=== PATIENT | female | born 1995 | race Caucasian/White ===

== ENCOUNTER → 2018-05-14 14:52 | Outpatient (CLI) | payer MEDICAID, SELFPAY ==
[2018-05-14 17:20] LABS: Chlamydia Trachomatis by PCR Negative (Negative); Neisserai gonorrhoeae by PCR Negative (Negative); Probe Check PASS; Sample Adequacy Control PASS; Specimen Processing Control PASS
[2018-05-14 17:37] LABS: Hemoglobin A1c 5.3 % (4.2-6.3)
[2018-05-14 17:38] LABS: hCG Titer Quant., Serum < 1 mIU/mL (<9 non-preg)
[2018-05-14 17:39] LABS: Follicle Stimulating Hormone 3.6 mIU/mL; Free T3 2.5 pg/mL (2.18-3.98); Luteinizing Hormone 8.5 mIU/mL; Prolactin 5.5 ng/mL; T4 Free Direct 0.86 ng/dL (0.76-1.46); Thyroid Stim Hormone (TSH) 1.07 uIU/mL (0.358-3.74)
[2018-05-18 03:06] LABS: Testosterone, % Free 3.19 % (0.50-2.80); Testosterone, Free 1.24 ng/dL (0.10-0.85); Testosterone, Total 39 ng/dL (8-48)
[2018-05-18 12:03] LABS: DHEA Sulfate 372.5 ug/dL (110.0-431.7)
[2018-05-19 17:16] LABS: HPV Reflexed? NOT INDICATED
== END ==
PROVIDERS: Visit Provider Obstetrics & Gynecology
DX: N91.1 Secondary amenorrhea (principal); Z12.4 Encounter for screening for malignant neoplasm of cervix; Z11.3 Encounter for screening for infections with a predominantly sexual mode of transmission
CPT/HCPCS: 36415; 82627; 83001; 83002; 83036; 84146; 84402; 84403; 84439; 84443; 84481; 84702; 87491; 87591; 88175; 82626; G0145

== ENCOUNTER → 2019-02-04 | Outpatient (CLI) | payer MEDICAID, SELFPAY ==
[2019-02-09 08:07] LABS: Testosterone, Free 1.17 ng/dL (0.10-0.85); Testosterone, Total 38 ng/dL (8-48)
[2019-02-09 12:18] LABS: Testosterone, % Free 3.07 % (0.50-2.80)
== END | disposition home or self-care (01) ==
LOC: WOBLAB 11:57
PROVIDERS: Visit Provider Obstetrics & Gynecology
DX: E28.2 Polycystic ovarian syndrome (principal)
CPT/HCPCS: 36415; 84402; 84403

== ENCOUNTER → 2019-05-18 14:18 | Outpatient (CLI) | payer MEDICAID, SELFPAY ==
[2017-02-06 14:59] VITALS: BMI 29.9
== END ==
PROVIDERS: Visit Provider Obstetrics & Gynecology
DX: Z12.4 Encounter for screening for malignant neoplasm of cervix (principal)

== ENCOUNTER 2019-07-16 17:10 | Inpatient (IN) | payer MEDICAID, SELFPAY ==
[2019-07-16 14:25] VITALS: BMI 29.9
--- NOTE | 2019-07-16 14:36 | PCM.HP.BLA ---
Problem List (1) Acute cholecystitis Status: Acute History and Physical Date of Admission: 07/16/19 Intake Vital Signs 07/16/19 Height 5 ft 07/16/19 Weight: 157 lb 07/16/19 BMI 30.7 07/16/19 BP 114/78 07/16/19 Blood Pressure Location Rt brachial 07/16/19 Position Sitting 07/16/19 Respiration 18 07/16/19 Pulse 64 07/16/19 Pulse Source Monitor 07/16/19 Temp 98.1 F 07/16/19 Temp Source Oral 07/16/19 Pulse Oximetry (%) 97 07/16/19 Oxygen Delivery Method room air Intake Visit Reasons: RUQ Pain Hida Scan F/U 07/13 Leo Santillan Chief Complaint: abdominal pain/nausea/vomiting/diarrhea Stop Attacher Required: No Accompanied by: Mother Is patient in pain?: Yes Pain scale (1-10): 8 Allergies guaifenesin [From Robitussin] Allergy (Intermediate, Verified 07/16/19 14:22) elevated heart rate Medications amoxicillin 875 mg-potassium clavulanate 125 mg tablet 1 tab PO Q12H 07/16/19 [History Confirmed 07/16/19] hydrocodone 5 mg-acetaminophen 325 mg tablet 1 tab PO Q4H PRN 07/16/19 [History Confirmed 07/16/19] PFSH Medical History Abdominal pain (Acute) Acute cholecystitis (Acute) Asthma (Acute) Diarrhea (Acute) Nausea & vomiting (Acute) Surgical History (Updated 07/16/19 @ 14:13 by Shira Santillan) No history of previous surgery (Acute) Family History (Updated 07/16/19 @ 14:18 by Shira Santillan) Grandmother Asthma Aunt Diabetes Uncle Diabetes Grandfather Diabetes Mother Hypertension Social History (Updated 07/16/19 @ 14:34 by Pedro Pablo Ramirez MD) Smoking Status: Current every day smoker alcohol intake: current alcohol intake frequency: a few times a month substance use type: does not use HPI HPI HPI: CHELSEY GALLEGOS, is a 23 F who presents to the office today for HPI HPI HPI: CHELSEY GALLEGOS, is a 23 F who presents to the office today for right upper quadrant pain and nausea and vomiting. She was admitted to [facility] earlier this week for acute cholecystitis and she was sent home on Augmentin. She reports since being discharged she has had nausea and vomiting and right upper quadrant pain. She is not able to take any p.o. She has also been having diarrhea. ROS General General: Yes fatigue; no weight change, appetite, colon cancer, breast cancer or weakness HEENT HEENT: No difficulty swallowing, eye injury, eye surgery, swollen glands or hoarseness Endo Endocrine: No thyroid disease, diabetes mellitus, thyroid cancer, Hair loss, heat intolerance or cold intolerance Skin Skin: No rash or changing moles Breast Breast: No left breast lump, right breast lump, nipple discharge, breast pain, abnormal mammogram, abnormal US or breast enlargement Musc Musculoskeletal: Yes back problems; no arthritis, rheumatoid arthritis, gout or joint pain Cardio Cardiovascular: No murmur, pacemaker, heart disease, atrial fibrillation, high blood pressure, heart attack, heart stent, palpitations, shortness of breat with exertion or chest pain Psych Psychiatric: No depression, anxiety or hearing voices Resp Respiratory: No shortness of breath, No sleep apnea, No cough, No COPD, Yes asthma, No emphysema, No wheezing Gastro Gastrointestinal: Yes abdominal pain, Yes nausea or vomiting, Yes diarrhea, No constipation, No blood in stool, No acid reflux, No hemorrhoids, No ulcers, Yes gallbladder problem, No black,tarry stools Ralph Hematologic: No blood thinners, No blood disorders, No bleeding, No anemia, No blood clots Neuro Neurologic: No system reviewed and no additional complaints, except as docu, No as per HPI, No abnormal walking, No abnormal hearing, No abnormal movements, No abnormal speech, No behavioral changes, No burning sensations, No confusion, No seizure-like activity, No unsteadiness, No dizziness, No localized weakness, No frequent falls, No headache(s), No lack of coordination, No loss of vision, No memory loss, No numbness, No other visual disturbances, No radiating pain, No restless legs, No sensory deficit, No fainting, No tingling, No tremor(s), No weakness, No other Exam Const General: cooperative Orientation: alert, oriented x3 HENMT Head: normal to inspection Ears: hearing grossly normal bilaterally Eyes General: appearance normal, both eyes and all related structures Visual Swenson: normal visual swenson by confrontation Neck Neck: normal visual inspection Chest Chest palpation & inspection: normal inspection of the chest Breast Palpation: No nipple discharge Resp Effort & Inspection: normal respiratory effort Auscultation: clear to auscultation bilaterally Cardio Rate: regular rate Rhythm: regular rhythm Heart Sounds: no murmurs GI Inspection: non-distended Palpation: soft, tender in the RUQ and Diaz's sign positive Musc Cervical Spine: normal cervical lordosis, cervical ROM normal Skin General: no rashes or lesions noted Neuro General: alert, oriented x3 Cranial Nerves: CN's II-XI intact bilaterally Cognition: normal cognition Extrem General: normal to inspection, full ROM Psych Appearance: grossly normal Affect: normal affect Assessment & Plan Problems 1. Acute cholecystitis K81.0 Plan 23-year-old female with acute cholecystitis 1. The patient has acute cholecystitis confirmed with abnormal ultrasound showing thickening as well as a HIDA scan showing nonfilling of the gallbladder. She was discharged home on oral antibiotics 1 over the hospital 2 days ago. In the last 2 days she has had nausea and vomiting and right upper quadrant pain with no remission. 2. I discussed the procedure in detail with the patient. I discussed the risks, benefits, and alternatives of the procedure. I discussed the risks including but not limited to bleeding, infection, injury to surrounding organs such as the liver, bile duct, bowels. I did discuss the possibility of having to convert to an open procedure as well as the possibility that if any injuries occurred this may necessitate further surgery at a tertiary care center. I also discussed that she has been sick for quite some time and there is also a possibility of performing a partial cholecystectomy or conversion to open procedure. The patient understands as well. I explained that if she had a partial cholecystectomy she would require an ERCP the following day for stent placement. She understands. 3. I will take her emergently for laparoscopic cholecystectomy today. I am sending her down to surgery now. Pedro Pablo Ramirez MD Pager: [facility] [address] [place] [address], [address] [place] [address] Office:
[2019-07-16 15:14] LABS: Hematocrit 44.6 % (37-47); Mean Corp Hgb Conc 33.6 g/dL (32-36); Mean Corpuscular Hgb 28.6 pg (27.0-32.0); Mean Platelet Vol. 10.5 fl (6.2-12.0); Platelet Count 295 K/mm3 (150-450); RBC Distribution Width CV 12.5 % (11.6-14.6); RBC Distribution Width SD 38.5 fl (35.1-43.9); Red Blood Count 5.25 M/mm3 (4.2-5.4); White Blood Count 6.6 K/mm3 (4.4-11.0)
[2019-07-16 15:18] LABS: Internal QC Validated? YES +Cl - CLEAR BKGD; Pregnancy, Urine Negative Negative
[2019-07-16 15:29] VITALS: BP 115/70; PULSE 82; RESP 16; TEMP 36.1; O2SAT 99; BMI 29.2
[2019-07-16] MEDS: Lactated Ringers 1,000 ML 100 ML IV (15:45)
[2019-07-16 15:51] LABS: AST(SGOT) 1007 U/L (15-37); Alanine Aminotransfer ALT/SGPT 1075 U/L (13-56); Albumin, Serum 3.8 g/dL (3.2-5.0); Alkaline Phosphatase 196 U/L (45-117); Anion Gap 5 (5-15); BUN 15 mg/dL (7-18); BUN/Creat Ratio 17.5 RATIO (10-20); Calcium,Total 9.3 mg/dL (8.5-10.1); Chloride 110 mmol/L (98-107); Creatinine, Serum 0.86 mg/dL (0.55-1.02); EST Glomerular Filtration Rate 87 mL/min (>60); Est Glom Filt Rate - Afr Amer 105 mL/min (>60); Estimated Creatinine Clearance 73.08 ml/min; Globulin 3.8 g/dL (2.2-4.2); Glucose 89 mg/dL (74-106); Potassium 3.9 mmol/L (3.5-5.1); Protein, Total 7.6 g/dL (6.4-8.2); Sodium Level 139 mmol/L (136-145)
--- NOTE | 2019-07-16 17:12 | MRI_ITS ---
STUDY: MR CHOLANGIOPANCREATOGRAPHY (MRCP) REASON FOR EXAM: Female, 23 years old. Right upper quadrant pain. Pain x 3 weeks TECHNIQUE: Standard MRCP technique was utilized. COMPARISON: None. FINDINGS: Heart size is normal. No pleural effusion. The liver, spleen, pancreas, adrenal glands, and kidneys are unremarkable. The aorta is normal in caliber. Multiple small dependent stones in the gallbladder. There is mild wall thickening. Normal cystic duct. Common duct is normal in caliber measuring 3 mm. There is a single 3 mm filling defect in the distal common duct consistent with stone. MRI/MRCP Abdomen without Contrast IMPRESSION: 1. Choledocholithiasis. 2. Cholelithiasis with mild wall thickening, suspicious for acute cholecystitis. Electronically Signed: Marjorie Jhaveri MD at 20:02 EST Tel , Service support ,
--- NOTE | 2019-07-16 17:55 | PCM.PN.BLA ---
Progress Note I ordered labs for the patient surgery. The laboratory evidence does not coincide with acute cholecystitis. The patient has a normal white count and her AST and ALT are markedly elevated over 1000. At this point I am concerned more for hepatitis. I canceled surgery and discussed this with the patient. I will admit her to the floor and start her on IV fluids and check a hepatitis and mono panel. I will also recheck CBC and CMP in the morning and get an MRCP. If the MRCP shows no stones in the duct or ductal dilation I will wait for the hepatitis panel. It is possible that the gallbladder was inflamed and thickened and nonfilling on the HIDA due to the hepatitis. Pedro Pablo Ramirez MD Pager: [facility] [address] [place] [address], [address] [place] [address] Office: STROKE Vital Signs/Narrative: Vital Signs Temp Pulse Resp BP Pulse Ox 07/16/19 15:29 97.0 F L 82 16 115/70 99
[2019-07-16 18:04] VITALS: BMI 29.2
[2019-07-16] MEDS: 0.9% Normal Saline 1,000 ML 999 ML IV (18:53)
[2019-07-16 18:59] VITALS: BP 105/62; PULSE 52; RESP 16; TEMP 36.9; O2SAT 99
[2019-07-16 19:08] LABS: Internal QC Validated? YES +Cl - CLEAR BKGD; Monotest Negative (Negative)
[2019-07-16] MEDS: 0.9% Normal Saline 1,000 ML 125 ML IV (19:56)
[2019-07-16 19:58] VITALS: BP 96/60; PULSE 61; RESP 14; TEMP 36.3; O2SAT 100
[2019-07-16] MEDS: Ondansetron 4 MG/2 ML Vial IV (21:20)
[2019-07-16] MEDS: Morphine 2 MG/ML Syringe IV (21:20)
[2019-07-17] VITALS (11 sets, daily range): BP systolic 92–123; BP diastolic 54–81; PULSE 58–97; RESP 14–18; TEMP 36.2–37; O2SAT 93–100; BMI 28.3
[2019-07-17] MEDS: 0.9% Normal Saline 1,000 ML 125 ML IV ×2 (03:56→12:48)
[2019-07-17 05:53] LABS: Absolute Lymphocyte Count 2.74 X10^3/uL (0.83-4.51); Absolute Neutrophil Count 4.6 X10^3/uL (2.0-7.7); Basophil# 0.07 X10^3/uL; Basophil% 0.8 % (0-1); Eosinophil# 0.15 X10^3/uL; Eosinophils% 1.8 % (0-5); Hematocrit 40.1 % (37-47); Lymphocyte # 2.74 X10^3/ul (4.0); Lymphocyte % 33.2 % (19-41); Mean Corp Hgb Conc 32.4 g/dL (32-36); Mean Corpuscular Hgb 27.8 pg (27.0-32.0); Mean Corpuscular Volume 85.7 fL (81-99); Mean Platelet Vol. 10.5 fl (6.2-12.0); Monocyte# 0.63 X10^3/uL; Monocyte% 7.6 % (0-10); NRBC Flagged by Analyzer 0 % (0-5); Neutrophil # 4.64 X10^3/uL (2.7-7.7); Neutrophil % 56.4 % (47-70); Platelet Count 254 K/mm3 (150-450); RBC Distribution Width CV 12.7 % (11.6-14.6); RBC Distribution Width SD 39.8 fl (35.1-43.9); Red Blood Count 4.68 M/mm3 (4.2-5.4); White Blood Count 8.3 K/mm3 (4.4-11.0)
[2019-07-17 06:21] LABS: ALB/GLOB Ratio 0.9 RATIO (0.9-2.4); AST(SGOT) 404 U/L (15-37); Alanine Aminotransfer ALT/SGPT 753 U/L (13-56); Albumin, Serum 2.8 g/dL (3.2-5.0); Alkaline Phosphatase 151 U/L (45-117); Anion Gap 5 (5-15); BUN 8 mg/dL (7-18); BUN/Creat Ratio 13.2 RATIO (10-20); Calcium,Total 7.8 mg/dL (8.5-10.1); Chloride 112 mmol/L (98-107); Creatinine, Serum 0.61 mg/dL (0.55-1.02); EST Glomerular Filtration Rate 129 mL/min (>60); Est Glom Filt Rate - Afr Amer 156 mL/min (>60); Estimated Creatinine Clearance 103.03 ml/min; Globulin 3.1 g/dL (2.2-4.2); Glucose 75 mg/dL (74-106); Phosphorus 2.6 mg/dL (2.5-4.9); Potassium 3.7 mmol/L (3.5-5.1); Protein, Total 5.9 g/dL (6.4-8.2); Sodium Level 140 mmol/L (136-145)
--- NOTE | 2019-07-17 07:13 | PN.SURG_ITS ---
Subjective: No nausea or vomiting overnight. Still complains of right upper quadrant pain. - Physical Exam Vitals/I&O's: Vital Signs Temp Pulse Resp BP Pulse Ox 98.6 F 64 14 99/56 L 100 07/17/19 02:15 07/17/19 02:15 07/17/19 02:15 07/17/19 02:15 07/17/19 02:15 Oxygen Delivery Method Room Air Weight: 150 lb Body Mass Index (BMI) 29.2 Intake and Output for Last 24 Hours 07/15/19 07/16/19 07/17/19 23:59 23:59 23:59 Intake Total 1405 / 1435 1030 / 1030 Balance 1405 / 1435 1030 / 1030 General: Alert, Oriented x3 Lungs: Normal air movement Cardiovascular: Regular rate, Regular Rhythm Abdomen: Soft, Non-Distended, Tender - Tender in the right upper quadrant Neurological: Cranial nerves II-XII grossly intact Psych/Mental Status: Normal Affect Laboratory Results 07/16/19 14:00: Urine Test Negative 07/16/19 15:07: Sodium 139, Potassium 3.9, Chloride 110 H, Carbon Dioxide 24.0, Anion Gap 5, BUN 15, Creatinine 0.86, Estim Creat Clear Calc 73.08, Est GFR (MDRD) Af Amer 105, Est GFR (MDRD) Non-Af 87, BUN/Creatinine Ratio 17.5, Glucose 89, Calcium 9.3, Total Bilirubin 1.40 H, AST 1007 H, ALT 1075 H, Alkaline Phosphatase 196 H, Total Protein 7.6, Albumin 3.8, Globulin 3.8, Albumin/Globulin Ratio 1.0 07/16/19 15:07: WBC 6.6, RBC 5.25, Hgb 15.0, Hct 44.6, MCV 85.0, MCH 28.6, MCHC 33.6, RDW Std Deviation 38.5, RDW Coeff of Alber 12.5, Plt Count 295, MPV 10.5 07/16/19 15:07: Monoscreen Negative 07/17/19 05:22: Hepatitis A IgM Ab Pending, Hep Bs Antigen Pending, Hep B Core IgM Ab Pending, Hepatitis C Ab (EIA) Pending 07/17/19 05:22: WBC 8.3, RBC 4.68, Hgb 13.0, Hct 40.1, MCV 85.7, MCH 27.8, MCHC 32.4, RDW Std Deviation 39.8, RDW Coeff of Alber 12.7, Plt Count 254, MPV 10.5, Immature Gran % (Auto) 0.200, Neut % (Auto) 56.4, Lymph % (Auto) 33.2, [place] % (Auto) 7.6, Eos % (Auto) 1.8, Baso % (Auto) 0.8, Absolute Neuts (auto) 4.6, Absolute Lymphs (auto) 2.74, Nucleated RBC % 0 07/17/19 05:22: Sodium 140, Potassium 3.7, Chloride 112 H, Carbon Dioxide 23.0, Anion Gap 5, BUN 8, Creatinine 0.61, Estim Creat Clear Calc 103.03, Est GFR (MDRD) Af Amer 156, Est GFR (MDRD) Non-Af 129, BUN/Creatinine Ratio 13.2, Glucose 75, Calcium 7.8 L, Phosphorus 2.6, Magnesium 2.0, Total Bilirubin 1.80 H , AST 404 H, ALT 753 H, Alkaline Phosphatase 151 H, Total Protein 5.9 L, Albumin 2.8 L, Globulin 3.1, Albumin/Globulin Ratio 0.9 Clinical Impression(s) from Imaging Studies MRCP 07/16/19 17:12 IMPRESSION: 1. Choledocholithiasis. 2. Cholelithiasis with mild wall thickening, suspicious for acute cholecystitis. Electronically Signed: Marjorie Jhaveri MD at 20:02 EST Tel , Service support , Current Medications Sodium Chloride () 1,000 mls @ 125 mls/hr IV .Q8H DAMARIS Last Admin: 07/17/19 03:56 Dose: 125 mls/hr Documented by: Sodium Chloride () 250 mls @ 15 mls/hr IV .[id number] PRN PRN Reason: Saline Flush Cefotetan Disodium 2 gm/ (Sodium Chloride) 100 mls @ 200 mls/hr IV SEND TO OR W/PATIENT ONE Stop: 07/17/19 07:38 Ibuprofen (Motrin) 600 mg PO Q6H PRN PRN PRN Reason: Pain Score 1-10/10 Morphine Sulfate () 2 - 4 mg IV Q2H PRN PRN PRN Reason: Pain Score 6-10/10 Last Admin: 07/16/19 21:20 Dose: 2 mg Documented by: Ondansetron HCl (Zofran) 4 mg IV Q6H PRN PRN PRN Reason: NAUSEA Last Admin: 07/16/19 21:20 Dose: 4 mg Documented by: Pantoprazole Sodium (Protonix) 40 mg PO DAILY DAMARIS Sodium Chloride () 10 - 40 ml IV UD PRN PRN Reason: SALINE FLUSH Medical Necessity - Tobacco Use Smoking Status: Current every day smoker Tobacco Use: Cigarettes Assessment/Plan All Active Problems (Last Reviewed 07/16/19 @ 14:13 by Shira Santillan) Acute cholecystitis (Acute) 23-year-old female with choledocholithiasis and acute cholecystitis 1. Patient was admitted and hepatitis panel was collected. She had an MRCP overnight which showed normal common bile duct diameter but there was a 3 mm filling defect in the distal common bile duct as well as cholelithiasis. Hepatitis and all still pending. Her white count is still normal today despite no antibiotics. Given the fact that she does have cholelithiasis and possible choledocholithiasis I do recommend laparoscopic cholecystectomy although hepatitis is still on the differential. Her LFTs have slightly decreased today. I will plan on laparoscopic cholecystectomy with possible common duct exploration. 2. I discussed the procedure in detail with the patient. I discussed the risks, benefits, and alternatives of the procedure. I discussed the risks including but not limited to bleeding, infection, injury to surrounding organs such as the liver, bile duct, bowels. I did discuss the possibility of having to convert to an open procedure as well as the possibility that if any injuries occurred this may necessitate further surgery at a tertiary care center. Pedro Pablo Ramirez MD Pager: [facility] [address] [place] [address], [address] [place] [address] Office:
[2019-07-17] MEDS: 0.9% Saline Lock 10 ML Syringe IV ×2 (08:37→16:40)
[2019-07-17] MEDS: Lactated Ringers 1,000 ML 100 ML IV (10:00)
--- NOTE | 2019-07-17 10:28 | RAD_ITS ---
STUDY: INTRAOPERATIVE CHOLANGIOGRAM REASON FOR EXAM: Female, 23 years old. ABD PAIN RADIATION DOSAGE (If Supplied By Facility): CTDIvol = ( ) mGy, DLP = ( ) mGycm. Individualized dose optimization techniques were used for this CT.? FLUOROSCOPY TIME (if supplied): ( 4 minutes, 31 seconds ) TECHNIQUE: 1 intraoperative film, and 2 cine loops obtained. COMPARISON: None. FINDINGS: After the gallbladder was removed, and the cystic duct remnant was cannulized, and contrast injected into the biliary tree in a retrograde manner. The biliary tree fills normally without evidence of abnormal distention or filling defect. There is free flow of contrast into the duodenum. RAD/Cholangiogram/ O R,Initial IMPRESSION: Normal intraoperative cholangiogram Electronically Signed: Ze Grace MD at 15:03 EST , Service support ,
--- NOTE | 2019-07-17 11:05 | CASEMGMT ---
RN CM attempted to complete CM assessment at this time. Patient is currently at surgery. CM to attempt again at later time.
[2019-07-17] MEDS: Bupiv/Epi 0.25% 30 ML Vial (11:16)
--- NOTE | 2019-07-17 11:20 | GALL_PTH ---
PATIENT: CHELSEY GALLEGOS LOC: MS3 U#:[id number] AGE/SX: 23/ ROOM: MS313 RE07/16/[address]: Dr. Pedro Pablo Ramirez MD : 1995 BED: 1 DIS: 07/18/2019 SPEC #: [id number] RECD: 07/17/19 14:19 STATUS: IVONNE PONCE #: [id number] MY: 07/17/19 11:[address]: Pedro Pablo Ramirez DEPT: SURGICAL PATHOLOGY RECD BY: Frandy Arthur ENTERED: 07/17/19 15:02 SP TYPE: FRANCHESCA OCONNOR DR: Dr. Renata Camejo MD Tissues: Gallbladder, NOS Procedures: Surgery Specimen Level III HEADER OPERATION: Laparoscopic cholecystectomy with IOC PRE-OP DIAGNOSIS: Acute cholecystitis TISSUE SUBMITTED: Gallbladder MICROSCOPIC DIAGNOSIS Gallbladder, cholecystectomy: Acute and chronic ulcerated cholecystitis and cholelithiasis. Reactive epithelial changes. :erum 07/20/19 MICROSCOPIC DESCRIPTION Slides are reviewed. GROSS DESCRIPTION Received is one container labeled with the patient's name and designated gallbladder. The specimen consists of a gallbladder measuring 8.5 x 3 x 2 cm. The external surface is smooth and glistening. Focally, it is granular, hemorrhagic and contains cautery artifact. The lumen of the gallbladder contains greenish-yellow mucoid bile and multiple mulberry, chalky yellow calculi ranging in size from <0.1 to 0.6 cm in greatest dimension. The mucosa is bile-stained and without any mass lesions. The gallbladder wall averages 0.2 cm in thickness and is free of mass lesions. Clinical Education Consultant sections of the gallbladder and the cystic duct at margin of resection are submitted in one cassette. / AM:erum 07/17/19 TC:2 CPT: 18285
--- NOTE | 2019-07-17 12:59 | OP.PCM_ITS ---
Problem List (1) Acute cholecystitis Status: Acute Report of Operation Date of Procedure: 07/17/19 Pre-Operative Diagnosis: Acute cholecystitis and choledocholithiasis Post-Operative Diagnosis: Same Surgery/Procedure Performed:: Laparoscopic cholecystectomy with laparoscopic common duct exploration Description of Surgical Findings:: Choledocholithiasis Specimen's removed: Gallbladder and contents Drains: JENNYFER to bulb suction Description of Procedure: After obtaining informed consent patient was brought back to the operating room. General anesthesia was induced. The abdomen was prepped and draped in usual sterile fashion. A small midline incision was made superior to the umbilicus and deepened to the level of fascia. The fascia was elevated and incised. Next the peritoneum was elevated and incised in the same fashion. Finger sweep was performed and the Locke trocar was placed into the abdomen. The balloon was inflated. The abdomen was inflated to 15 mmHg. Next a camera was introduced into the abdomen and the abdomen was inspected. Next under direct visualization three 5-mm ports were placed one subxiphoid and 2 subcostal. Next the gallbladder was elevated and retracted toward the right shoulder. The peritoneum was stripped from the gallbladder. The infundibulum was located and retracted laterally. Next the triangle of Calot was dissected and the cystic duct and cystic artery were identified. Cholangiograms were performed. The Tom clamp was used to clamp across the infundibulum and the catheter needle was inserted into the gallbladder. Under fluoroscopy contrast was instilled into the gallbladder and the common duct, cystic duct as well as proximal hepatic ducts were identified. There was a filling defect in the distal common bile duct with no filling of the duodenum. Next a clip was placed in the proximal cystic duct. A introducer was placed in the anterior abdominal wall and through this introducer catheter was placed in the cystic duct and a guidewire was placed into the common bile duct. During the placement of the wire into the cystic duct it appeared to reappear posterior to the cystic duct. It was unsure if the patient had perforation of the posterior cystic duct. Once the guidewire was into the small bowel a catheter was placed over this and a cholangiogram was performed. Next the catheter was removed and over the guidewire a 7 Bermudian stent was placed into the common bile duct and into the small bowel. Once it was in good position it was deployed. There was good flow of contrast into the duodenum. The guidewire was removed and the catheter was placed back into the common bile duct and another cholangiograms performed showing that the stent was in good position and there was good flow of contrast of the duodenum. There did not appear to be a leak from the cystic duct. The guidewire and catheter was removed from the cystic duct. 2 clips were placed in the distal cystic duct. The cystic duct was then divided leaving 2 clips on the stump. The cystic artery was clipped and divided in the same fashion. The hook cautery was then used to take the gallbladder off of the gallbladder bed. Hemostasis was obtained. Gallbladder fossa was irrigated and no active bleeding or bile leakage was noted. Next the camera switched to a 5 mm camera and introduced in the subxiphoid port. An Endopouch bag was placed through the umbilical port and the gallbladder was placed into it. The gallbladder was then removed through the umbilical incision. The camera was then reinserted through the umbilical port. The gallbladder fossa was inspected once more and noted to be hemostatic with no leaking bile. A 15 Bermudian round drain was placed through the lateral position and placed into the gallbladder fossa. The port was removed and the drain was sutured into place using a 3-0 nylon suture. Drain was placed to bulb suction. The abdomen was suctioned dry. The 5 mm ports were removed under direct visualization. The umbilical port was then removed and the air was removed from the abdomen. Next using an 0 Vicryl suture the umbilical fascia was closed in a [id number] fashion. The umbilical port site was irrigated local anesthetic was administered to all the incisions. All the incisions were closed with interrupted subcuticular 4-0 Monocryl sutures followed by Steri-Strips and dressings. The patient was awoken and taken to PACU in stable condition. Grafts/Implants Used: 7 Bermudian Dea stent - Admit VTE Documentation VTE Mechan Device Prophylaxis: SCD's
[2019-07-17] MEDS: oxyCODONE 5 MG Tablet PO ×2 (14:20→20:48)
[2019-07-17] MEDS: Pantoprazole Sodium 40 MG Tablet PO (14:20)
[2019-07-17] MEDS: Ondansetron 4 MG/2 ML Vial IV (16:39)
[2019-07-17] MEDS: Morphine 2 MG/ML Syringe IV (16:40)
[2019-07-17] MEDS: Ibuprofen 600 MG Tablet PO (18:37)
[2019-07-18 01:53] VITALS: BP 98/62; PULSE 60; RESP 16; TEMP 36.8; O2SAT 98
[2019-07-18] MEDS: 0.9% Normal Saline 1,000 ML 125 ML IV (01:56)
[2019-07-18] MEDS: oxyCODONE 5 MG Tablet PO ×2 (03:09→10:53)
[2019-07-18 05:50] VITALS: BP 110/69; PULSE 59; RESP 16; TEMP 36.6; O2SAT 97
[2019-07-18 06:07] LABS: HEPATITIS B SURFACE AG Negative (Negative); Hepatitis A IgM Antibody Negative (Negative); Hepatitis B Core AB IgM Negative (Negative)
--- NOTE | 2019-07-18 08:03 | PN.SURG_ITS ---
Subjective: Patient is doing well and tolerating clear liquids with no issues overnight. Pain is well controlled with meds. - Physical Exam Vitals/I&O's: Vital Signs Temp Pulse Resp BP Pulse Ox 98 F 59 L 16 110/69 97 07/18/19 05:50 07/18/19 05:50 07/18/19 05:50 07/18/19 05:50 07/18/19 05:50 Oxygen Delivery Method Room Air Weight: 150 lb 2.157 oz Body Mass Index (BMI) 28.3 Intake and Output for Last 24 Hours 07/16/19 07/17/19 07/18/19 23:59 23:59 23:59 Intake Total 1405 / 1435 4175 / 4515 590 / 590 Output Total 655 / 855 520 / 520 Balance 1405 / 1435 3520 / 3660 70 / 70 General: Alert, Oriented x3 Neck: No JVD Lungs: Normal air movement Cardiovascular: Regular rate, Regular Rhythm Abdomen: Soft, Non-Distended, Tender - Appropriate tenderness at incisions, - - JENNYFER serosanguineous Laboratory Results 07/18/19 06:47: WBC Pending, RBC Pending, Hgb Pending, Hct Pending, MCV Pending, MCH Pending, MCHC Pending, RDW Std Deviation Pending, RDW Coeff of Alber Pending, Plt Count Pending, Neut % (Auto) Pending, Absolute Neuts (auto) Pending 07/18/19 06:47: Sodium Pending, Potassium Pending, Chloride Pending, Carbon Dioxide Pending, Anion Gap Pending, BUN Pending, Creatinine Pending, Est GFR (MDRD) Af Amer Pending, Est GFR (MDRD) Non-Af Pending, BUN/Creatinine Ratio Pending, Glucose Pending, Calcium Pending, Total Bilirubin Pending, AST Pending, ALT Pending, Alkaline Phosphatase Pending, Total Protein Pending, Albumin Pending Current Medications Acetaminophen (Tylenol) 650 mg PO Q6H PRN PRN PRN Reason: Pain or Fever Sodium Chloride () 250 mls @ 15 mls/hr IV .[id number] PRN PRN Reason: Saline Flush Ibuprofen (Motrin) 600 mg PO Q6H PRN PRN PRN Reason: Pain Score 1-10/10 Last Admin: 07/17/19 18:37 Dose: 600 mg Documented by: Morphine Sulfate () 2 - 4 mg IV Q2H PRN PRN PRN Reason: Pain Score 6-10/10 Last Admin: 07/17/19 16:40 Dose: 4 mg Documented by: Ondansetron HCl (Zofran) 4 mg IV Q6H PRN PRN PRN Reason: NAUSEA Last Admin: 07/17/19 16:39 Dose: 4 mg Documented by: Oxycodone HCl (Oxyir) 5 - 10 mg PO Q6H PRN PRN PRN Reason: Pain Score 6-10/10 Last Admin: 07/18/19 03:09 Dose: 10 mg Documented by: Pantoprazole Sodium (Protonix) 40 mg PO DAILY DAMARIS Last Admin: 07/17/19 14:20 Dose: 40 mg Documented by: Sodium Chloride () 10 - 40 ml IV UD PRN PRN Reason: SALINE FLUSH Last Admin: 07/17/19 16:40 Dose: 10 ml Documented by: Medical Necessity - Tobacco Use Smoking Status: Current every day smoker Tobacco Use: Cigarettes Assessment/Plan All Active Problems (Last Reviewed 07/16/19 @ 14:13 by Shira Santillan) Acute cholecystitis (Acute) 23-year-old female status post laparoscopic cholecystectomy with common bile duct exploration 1. Patient reports she is doing well this morning. She is tolerating clear liquid diet with no nausea or vomiting. I will advance her to regular diet. Her drain is still serosanguineous and I will remove it this afternoon. 2. If she tolerates diet I will discharge her home. Plan for ERCP in about 4 weeks to remove the stent and check for leak. Pedro Pablo aRmirez MD Pager: [facility] [address] [place] [address], [address] [place] [address] Office:
[2019-07-18 08:05] LABS: Absolute Lymphocyte Count 2.51 X10^3/uL (0.83-4.51); Absolute Neutrophil Count 5.3 X10^3/uL (2.0-7.7); Basophil# 0.04 X10^3/uL; Basophil% 0.5 % (0-1); Eosinophil# 0.05 X10^3/uL; Eosinophils% 0.6 % (0-5); Hematocrit 38.6 % (37-47); Hemoglobin 12.5 g/dL (12.0-15.0); Lymphocyte # 2.51 X10^3/ul (4.0); Lymphocyte % 28.9 % (19-41); Mean Corp Hgb Conc 32.4 g/dL (32-36); Mean Corpuscular Hgb 28.3 pg (27.0-32.0); Mean Corpuscular Volume 87.3 fL (81-99); Monocyte# 0.78 X10^3/uL; NRBC Flagged by Analyzer 0 % (0-5); Neutrophil # 5.27 X10^3/uL (2.7-7.7); Neutrophil % 60.5 % (47-70); Platelet Count 251 K/mm3 (150-450); RBC Distribution Width CV 12.9 % (11.6-14.6); RBC Distribution Width SD 41.1 fl (35.1-43.9); Red Blood Count 4.42 M/mm3 (4.2-5.4); White Blood Count 8.7 K/mm3 (4.4-11.0)
[2019-07-18] MEDS: Pantoprazole Sodium 40 MG Tablet PO (08:14)
[2019-07-18] MEDS: Ibuprofen 600 MG Tablet PO (08:17)
[2019-07-18 08:26] LABS: ALB/GLOB Ratio 0.9 RATIO (0.9-2.4); AST(SGOT) 365 U/L (15-37); Alanine Aminotransfer ALT/SGPT 771 U/L (13-56); Albumin, Serum 2.9 g/dL (3.2-5.0); Alkaline Phosphatase 182 U/L (45-117); Anion Gap 6 (5-15); BUN 7 mg/dL (7-18); BUN/Creat Ratio 10.2 RATIO (10-20); Calcium,Total 8.9 mg/dL (8.5-10.1); Chloride 112 mmol/L (98-107); Creatinine, Serum 0.69 mg/dL (0.55-1.02); EST Glomerular Filtration Rate 112 mL/min (>60); Est Glom Filt Rate - Afr Amer 135 mL/min (>60); Estimated Creatinine Clearance 95.69 ml/min; Globulin 3.2 g/dL (2.2-4.2); Glucose 76 mg/dL (74-106); Potassium 3.8 mmol/L (3.5-5.1); Protein, Total 6.1 g/dL (6.4-8.2); Sodium Level 140 mmol/L (136-145)
--- NOTE | 2019-07-18 10:42 | PCM.DC.GB ---
Discharge Diet: Light diet - advance as tolerated Discharge Activity: Return to Normal Activity, May Not Drive - for 2-3 days or while taking narcotic pain medicataions., May Shower May shower in (days): 1 - with the bandage in place. Lifting Restrictions: 20 lbs for 2 weeks Additional Activity Instructions:: Pain medication may cause nausea. You should typically eat light foods as you take your pain medications. Pain medication may also cause constipation. If this is a problem for you, please discuss with your doctor. Call your doctor if your incision/area has: Continuous Slow Oozing, Sudden Increased Bleeding, Increased Pain/ Swelling, Increased Redness, Foul Smelling Discharge, Fever of 101 or Higher Call your doctor if you observe: Fever of 101 or Higher Suture Line Care: Avoid Pulling/Pushing, Avoid Pinching/Bending Additional Dressing/Incision Instructions:: Leave operative bandaids on for 2 days. When you remove dressing, leave Steri-Strips on until your follow-up appointment, or until the Steri-Strips fall off on their own. Allergies/Adverse Reactions: Allergies guaifenesin [From Robitussin] Allergy (Intermediate, Verified 07/16/19 15:21) elevated heart rate Medications to take at Discharge amoxicillin 875 mg-potassium clavulanate 125 mg tablet 1 tab PO Q12H 07/16/19 hydrocodone 5 mg-acetaminophen 325 mg tablet 1 tab PO Q4H PRN 07/16/19 Acetaminophen [Tylenol Tablet] 650 mg PO Q6H PRN PRN tablet 07/18/19 Oxycodone [Oxyir] 5 - 10 mg PO Q6H PRN PRN 5 Days #30 tablet 07/18/19 The following prescriptions were given: Oxycodone [Oxyir] 5 - 10 mg PO Q6H PRN PRN 5 Days #30 tablet PRN Reason: Pain Score 6-10/10 Transmission Status: Received by [facility]/pharmacy #[id number] Primary Care Physician: Renata Camejo [Primary Care Provider] - Test Results: Test results from this visit will be discussed in further detail at your follow-up appointment, if applicable. Please Follow Up With: Pedro Pablo Ramirez MD When: Please call to schedule 2 week follow up appointment. [phone]
--- NOTE | 2019-07-18 10:44 | DS.PCM_ITS ---
Discharge Date and Diagnosis Date of Admission: 07/16/19 Date of Discharge: 07/18/19 Hospital Course and Treatment Imaging Results: Clinical Impression(s) from Imaging Studies MRCP 07/16/19 17:12 IMPRESSION: 1. Choledocholithiasis. 2. Cholelithiasis with mild wall thickening, suspicious for acute cholecystitis. Electronically Signed: Marjorie Jhaveri MD at 20:02 EST Tel , Service support , Cholangiogram 07/17/19 10:28 IMPRESSION: Normal intraoperative cholangiogram Electronically Signed: Ze Grace MD at 15:03 EST , Service support , Operations: cholecystecomy Procedures: None Summary of Care Provided: The patient is a 23 year old F presented to the office with right upper quadrant pain and elevated white count. She was taken for surgery the following day after MRCP showed a distal common duct filling defect. She had a laparoscopic cholecystectomy with common duct exploration and placement of stent. She will follow-up for ERCP with stent removal. She was tolerating a diet the following day and discharged home in stable condition. Her JENNYFER drain was serous with no bile and it was removed. - Physical Exam Vitals/I&O's: Vital Signs Temp Pulse Resp BP Pulse Ox 98 F 59 L 16 110/69 97 07/18/19 05:50 07/18/19 05:50 07/18/19 05:50 07/18/19 05:50 07/18/19 05:50 Oxygen Delivery Method Room Air Weight: 150 lb 2.157 oz Body Mass Index (BMI) 28.3 Intake and Output for Last 24 Hours 07/16/19 07/17/19 07/18/19 23:59 23:59 23:59 Intake Total 1405 / 1435 4175 / 4515 1473.33 / 1473.33 Output Total 655 / 855 520 / 520 Balance 1405 / 1435 3520 / 3660 953.33 / 953.33 Laboratory Results 07/18/19 06:47: WBC 8.7, RBC 4.42, Hgb 12.5, Hct 38.6, MCV 87.3, MCH 28.3, MCHC 32.4, RDW Std Deviation 41.1, RDW Coeff of Alber 12.9, Plt Count 251, MPV 11.0, Immature Gran % (Auto) 0.500, Neut % (Auto) 60.5, Lymph % (Auto) 28.9, Owen % (Auto) 9.0, Eos % (Auto) 0.6, Baso % (Auto) 0.5, Absolute Neuts (auto) 5.3, Absolute Lymphs (auto) 2.51, Nucleated RBC % 0 07/18/19 06:47: Sodium 140, Potassium 3.8, Chloride 112 H, Carbon Dioxide 22.0, Anion Gap 6, BUN 7, Creatinine 0.69, Estim Creat Clear Calc 95.69, Est GFR (MDRD) Af Amer 135, Est GFR (MDRD) Non-Af 112, BUN/Creatinine Ratio 10.2, Glucose 76, Calcium 8.9, Total Bilirubin 3.50 H, AST 365 H, ALT 771 H, Alkaline Phosphatase 182 H, Total Protein 6.1 L, Albumin 2.9 L, Globulin 3.2, Albumin/Globulin Ratio 0.9 Current Medications Acetaminophen (Tylenol) 650 mg PO Q6H PRN PRN PRN Reason: Pain or Fever Sodium Chloride () 250 mls @ 15 mls/hr IV .[id number] PRN PRN Reason: Saline Flush Ibuprofen (Motrin) 600 mg PO Q6H PRN PRN PRN Reason: Pain Score 1-10/10 Last Admin: 07/18/19 08:17 Dose: 600 mg Documented by: Morphine Sulfate () 2 - 4 mg IV Q2H PRN PRN PRN Reason: Pain Score 6-10/10 Last Admin: 07/17/19 16:40 Dose: 4 mg Documented by: Ondansetron HCl (Zofran) 4 mg IV Q6H PRN PRN PRN Reason: NAUSEA Last Admin: 07/17/19 16:39 Dose: 4 mg Documented by: Oxycodone HCl (Oxyir) 5 - 10 mg PO Q6H PRN PRN PRN Reason: Pain Score 6-10/10 Last Admin: 07/18/19 03:09 Dose: 10 mg Documented by: Pantoprazole Sodium (Protonix) 40 mg PO DAILY [facility] Last Admin: 07/18/19 08:14 Dose: 40 mg Documented by: Sodium Chloride () 10 - 40 ml IV UD PRN PRN Reason: SALINE FLUSH Last Admin: 07/17/19 16:40 Dose: 10 ml Documented by: Discharge Diet: Light diet - advance as tolerated Discharge Activity: Return to Normal Activity, May Not Drive - for 2-3 days or while taking narcotic pain medicataions., May Shower May shower in (days): 1 - with the bandage in place. Additional Activity Instructions:: Pain medication may cause nausea. You should typically eat light foods as you take your pain medications. Pain medication may also cause constipation. If this is a problem for you, please discuss with your doctor. Call your doctor if your incision/area has: Continuous Slow Oozing, Sudden Increased Bleeding, Increased Pain/ Swelling, Increased Redness, Foul Smelling Discharge, Fever of 101 or Higher Call your doctor if you observe: Fever of 101 or Higher Suture Line Care: Avoid Pulling/Pushing, Avoid Pinching/Bending Additional Dressing/Incision Instructions:: Leave operative bandaids on for 2 days. When you remove dressing, leave Steri-Strips on until your follow-up appointment, or until the Steri-Strips fall off on their own. Home Medications: Medications to take at Discharge amoxicillin 875 mg-potassium clavulanate 125 mg tablet 1 tab PO Q12H 07/16/19 hydrocodone 5 mg-acetaminophen 325 mg tablet 1 tab PO Q4H PRN 07/16/19 Acetaminophen [Tylenol Tablet] 650 mg PO Q6H PRN PRN tab 07/18/19 Oxycodone [Oxyir] 5 - 10 mg PO Q6H PRN PRN 5 Days #30 tab 07/18/19 Following Prescrptions Were Given to Patient: Oxycodone [Oxyir] 5 - 10 mg PO Q6H PRN PRN 5 Days #30 tab PRN Reason: Pain Score 6-10/10 Transmission Status: Received by [facility]/pharmacy #[id number] Primary Care Physician: Renata Camejo [Primary Care Provider] - Please Follow Up With: Pedro Pablo Ramirez MD When: Please call to schedule 2 week follow up appointment. [phone] Medical Necessity - Tobacco Use Smoking Status: Current every day smoker Tobacco Use: Cigarettes Meaningful Use Info Meaningful Use Diagnoses (Choose all that apply): None applicable
[2019-07-18 10:54] VITALS: BP 106/72; PULSE 62; RESP 16; TEMP 36.7; O2SAT 95
--- NOTE | 2019-07-18 11:44 | NURSING ---
Dr. Ramirez removed JENNYFER drain.
[2019-07-18 15:24] LABS: Hep C Antibodies <0.1 s/co ratio (0.0-0.9)
[2019-07-18 16:00] VITALS: BP 112/74; PULSE 58; RESP 16; TEMP 37.2; O2SAT 95
== END 2019-07-18 17:13 | disposition home or self-care (01) | DRG 263 ==
LOC: MS3 17:10
PROVIDERS: Admitting Provider Surgery; PCP Family Medicine; Referring Provider Surgery; Visit Provider Surgery
PROC: 0FT44ZZ Resection of Gallbladder, Percutaneous Endoscopic Approach (ICD-10-PCS; CPT 47610; principal; 2019-07-17 11:00)
DX: K80.62 Calculus of gallbladder and bile duct with acute cholecystitis without obstruction (principal); F17.210 Nicotine dependence, cigarettes, uncomplicated
CPT/HCPCS: 36415; 74181; 74300; 76000; 80053; 80074; 81025; 83735; 84100; 85025; 85027; 86308; 88304; J7030; J7120; A4216; C1769; J2405

== ENCOUNTER 2019-09-10 08:48 | Day surgery (SDC) | payer MEDICAID, SELFPAY ==
[2019-07-17 08:23] VITALS: BMI 28.3
[2019-09-10] VITALS (7 sets, daily range): BP systolic 93–116; BP diastolic 61–77; PULSE 85–99; RESP 15–18; TEMP 36.2–36.7; O2SAT 95–100; BMI 31.1
[2019-09-10] MEDS: Lactated Ringers 1,000 ML 100 ML IV (09:25)
[2019-09-10 09:28] LABS: Internal QC Validated? YES +Cl - CLEAR BKGD; Pregnancy, Urine Negative Negative
--- NOTE | 2019-09-10 09:43 | EKG12_ITS ---
Test Reason : PREOP Blood Pressure : / mmHG Vent. Rate : 081 BPM Atrial Rate : 081 BPM P-R Int : 152 ms QRS Dur : 084 ms QT Int : 372 ms P-R-T Axes : 015 039 006 degrees QTc Int : 432 ms Normal sinus rhythm Normal ECG When compared with ECG of 06-FEB-2017 15:10, QT has lengthened Confirmed by KAZ TAVERAS, VIPIN ([id number]), photography editor JAMEEL KEEN ([id number]) on 09/15/2019 7:54:37 AM Referred By: Renata Camejo Confirmed By:VIPIN MCCURDY MD
--- NOTE | 2019-09-10 09:56 | HP.PCM_ITS ---
History of Present Illness Date of Admission: 09/10/19 The patient is a 24 year old F here for ERCP with stent removal. Patient had laparoscopic cholecystectomy with common bile duct exploration and stent placement due to choledocholithiasis. Past Medical/Surgical History - Planned Operation Planned Operative Procedure/s: ERCP, STENT REMOVAL Date of Operative Procedure: 09/10/19 Permit Signed: Yes S.O.S: No Is This Patient Having a Total Joint: No - Previous Hospitalizations/Surgeries HX Hospitalizations: Yes HX of Surgeries: LAP ARIADNA 07/17/19 Any Problems With Anesthesia: No You/Your Family Experience Fever (Hyperthermia) With Anes: No Cholinesterase deficiency: No - Cardiovascular Hx Chest Pain within Last 2 months: No Hx of Irregular Heartbeat and/or Afib: No Hx Heart Attack: No Hx Congestive Heart Failure: No Hx Rheumatic Fever: No Hx Hypertension: No Hx Internal Defibrillator: No Hx Pacemaker: No Hx Cardiac Catheterization: No Hx Cardiac Surgery/Stents/Etc.: No Hx Stress Test: No HX Edema: No Hx Pain in Legs when Walking/Leg Cramps: No - Respiratory Chronic Cough: No HX of Shortness of Breath: No Hoarseness: No Hx Chronic Obstructive Pulmonary Disease (COPD): No Hx Asthma: Yes - ONLY USES WHEN SICK Hx Emphysema: No Hx Sleep Apnea: No CPAP: No BIPAP: No Hx Oxygen Use at Home: No Hx Respiratory Tract Infection/Cold (presently): No Do You Snore Loudly (louder than talking or can be heard): No Do You Often Feel Tired/ Fatigued/ Sleepy Dring Daytime?: No Has Anyone Observed You Stop Breathing During Sleep?: No Result (for STOP score): Negative Hx Smoking: Yes Smoking Status: Current every day smoker - Gastrointestinal Hx Gastroesophageal Reflux: No Hx Gastrointestinal Disorders: No Hx Gastrointestinal Bleed: No Hx Ulcer: No Hx Hiatal Hernia: No Difficulty Chewing/Swallowing: No Recent Onset of Swallowing Problems: No Special diet followed at home: No Hx Unplanned Weight Loss of 20#: No HX Unplanned Weight Gain of 20#: No - Neurological Hx Seizures: No HX Syncope/Blackout Spells/Unconsciousness: No Hx CVA/Stroke: No Hx Transient Ischemic Attacks (TIA): No Hx Multiple Sclerosis: No Hx Parkinson's Disease: No Hx Head/Neck Injury: No Hx Headaches: No Hx Back Injury/Pain: No Recent Onset of Speech Difficulty: No Restless Legs: No Does patient have nerve stimulator: No - Blood Disorder Hx Leukemia: No Bleeding Tendencies: No Hx Deep Vein Thrombosis: No Hx High Cholesterol: No Blood Transmitted Disease: No Hx Hepatitis: No Hx Cirrhosis: No Hx Anemia: No Hx Blood Disorders: No - Reproduction : No Is Patient Lactating: No Hx Hysterectomy: No Hx Tubal Ligation: No Are You Post Menopause: No - Genitourinary Hx Renal Disease: No Hx Dialysis: No - Musculoskeletal Hx Arthritis: No Hx Rheumatoid Arthritis: No Hx Gout: No Recent Onset of an Orthopedic Problem: No - Endocrine Hx Diabetes: No Insulin: No Thyroid Disease: No Hx Steroid Therapy: No - Psycho/Social Hx Substance Use: No Hx Alcohol Use: No Hx Anxiety: No Hx Depression: No Mental Illness: No Hx Dementia: No - Miscellaneous Hx Cancer: No Recent Exposure to Contagious Disease: No Active MRSA: No Hx of C-Diff: No Any Loose Teeth: No Additional information pertinent to anesthesia:: SMOKES 1/4 PPD FOR 2 YRS Allergies guaifenesin [From Robitussin] Allergy (Intermediate, Verified 09/10/19 09:06) elevated heart rate - Discharge Is Pt Admitted From a Detention, or a Mcfp: No Who Could Help: MOTHER After D/C, Where Do you Plan to Go: Return Home - Physical Exam Vitals/I&O's: Vital Signs Temp Pulse Resp BP Pulse Ox 98 F 85 15 104/77 95 09/10/19 09:16 09/10/19 09:16 09/10/19 09:16 09/10/19 09:16 09/10/19 09:16 Oxygen Delivery Method Room Air Weight: 159 lb 2.78 oz Body Mass Index (BMI) 31.1 General: Alert, Oriented x3 Neck: No JVD Lungs: Normal air movement Cardiovascular: Regular rate, Regular Rhythm Abdomen: Soft, Non Tender, Non-Distended Laboratory Results 09/10/19 09:18: Urine Test Negative Current Medications Lactated Ringer's () 1,000 mls @ 100 mls/hr IV .Q10H DAMARIS Last Admin: 09/10/19 09:25 Dose: 100 mls/hr Documented by: Assessment/Plan All Active Problems (Last Reviewed 08/04/19 @ 08:41 by Kim C Siders) Acute cholecystitis (Acute) 24-year-old female with biliary stent 1. Patient had trans-cystic biliary stent placement during her laparoscopic ch olecystectomy. She is doing well with no issues at this time. Plan for ERCP with stent removal and cholangiogram. I discussed ERCP in detail with the patient. I discussed the risks including but not limited to bleeding, infection, perforation of the bile duct or bowel, pancreatitis. The patient understands all the risks and is well to proceed. Pedro Pablo Ramirez MD Pager: [facility] [address] [place] [address] [address] [place] [address] Office: Surgery Risks - Colonoscopy Risks Include but are not Limited To: Risks include but are not limited to: Bleeding, perforation requiring further surgery, inability to complete colonoscopy requiring barium enema.
--- NOTE | 2019-09-10 10:09 | RAD_ITS ---
ERCP INDICATION: Abdominal pain. Fluoroscopy time: 80 seconds Images obtained: 4 images FINDINGS: Examination of the opacified biliary tree demonstrates no evidence of stricture, dilatation, or filling defect to suggest stone. Balloon sphincterotomy was performed. IMPRESSION: Fluoroscopy during ERCP. Electronically Signed: Blas Moy MD at 15:16 EDT Tel , Service support , RAD/ERCP Biliary Only
--- NOTE | 2019-09-10 10:42 | OP.CCLET_ITS ---
09/10/2019 Renata Camejo Re : ERCP procedure for Desire May Dear Bashir This procedure was performed on August. My impressions and recommendations are as follows: Impressions : - One stent was removed from the biliary tree. - A biliary sphincterotomy was performed. - The biliary tree was swept and nothing was found. No bile leak. Recommendations : - Discharge patient to home. - Resume previous diet. - Continue present medications. My findings are described in the full procedure note, which is enclosed. If I can be of further assistance, please feel free to contact me at Doctor phone number(s): , Work: . Sincerely, Pedro Pablo Ramirez MD 09/10/2019 10:42:00 AM This report has been signed electronically.
--- NOTE | 2019-09-10 10:42 | OP.ERCP_ITS ---
Patient Name: Desire May Procedure Date: 09/10/2019 9:35 AM Date of : 1995 Age: 24 Procedure: ERCP Indications: Biliary stent removal Providers: Pedro Pablo Ramirez MD Referring MD: Renata Camejo Medicines: General Anesthesia Patient Profile: This is a 24 year old female. Refer to note in patient chart for documentation of history and physical. Complications: No immediate complications. Estimated blood loss: Minimal. Procedure: Pre-Anesthesia Assessment: - Prior to the procedure, a History and Physical was performed, and patient medications and allergies were reviewed. The patient's tolerance of previous anesthesia was also reviewed. The risks and benefits of the procedure and the sedation options and risks were discussed with the patient. All questions were answered, and informed consent was obtained. Prior Anticoagulants: The patient has taken no previous anticoagulant or antiplatelet agents. After reviewing the risks and benefits, the patient was deemed in satisfactory condition to undergo the procedure. After obtaining informed consent, the scope was passed under direct vision. Throughout the procedure, the patient's blood pressure, pulse, and oxygen saturations were monitored continuously. The [id number] endoscope was introduced through the mouth, and advanced to the duodenum and used to inject contrast into the bile duct. The ERCP was accomplished without difficulty. The patient tolerated the procedure well. Scope In: 10:16:17 AM Scope Out: 10:24:20 AM Total Procedure Duration Time 0 hours 8 minutes 3 seconds Findings: One stent was removed from the biliary tree using a snare. A 0.035 inch x 260 cm straight Dreamwire was passed into the biliary tree. The bile duct was then deeply cannulated over the guidewire. Contrast was injected. Biliary sphincterotomy was made with a monofilament sphincterotome using ERBE electrocautery. There was no post-sphincterotomy bleeding. The biliary tree was swept with a 12 mm balloon starting at the bifurcation. Nothing was found. Impression: - One stent was removed from the biliary tree. - A biliary sphincterotomy was performed. - The biliary tree was swept and nothing was found. No bile leak. Recommendation: - Discharge patient to home. - Resume previous diet. - Continue present medications. Procedure Code(s): --- Professional --- 81045, Endoscopic retrograde cholangiopancreatography (ERCP); with removal of foreign body(s) or stent(s) from biliary/pancreatic duct(s) Diagnosis Code(s): --- Professional --- Z46.59, Encounter for fitting and adjustment of other gastrointestinal appliance and device CPT copyright 2017 [employer]. All rights reserved. The codes documented in this report are preliminary and upon supervisor cabinetmaker review may be revised to meet current compliance requirements. Pedro Pablo Ramirez MD 09/10/2019 10:42:00 AM This report has been signed electronically. Number of Addenda: 0 Note Initiated On: 09/10/2019 9:35 AM
--- NOTE | 2019-09-10 12:20 | SUR.OPER ---
ISOVUE: 11CC'S INJECTED
== END 2019-09-10 12:10 | disposition home or self-care (01) ==
LOC: EN 08:49 → AC 08:50
PROVIDERS: Anesthesiology; PCP Family Medicine; Referring Provider Family Medicine; Visit Provider Surgery
PROC: (CPT 43260; principal; 2019-09-10 09:30)
DX: Z46.59 Encounter for fitting and adjustment of other gastrointestinal appliance and device (principal); J45.909 Unspecified asthma, uncomplicated; F17.200 Nicotine dependence, unspecified, uncomplicated
CPT/HCPCS: 43275; 74328; 76000; 81025; 93005; J7120; J2405

== ENCOUNTER → 2020-01-15 13:00 | Outpatient (CLI) | payer MEDICAID, SELFPAY ==
[2019-09-10 09:16] VITALS: BMI 31.1
[2020-01-15 14:26] LABS: Progesterone Level 0.54 ng/mL (See Comment)
== END ==
PROVIDERS: PCP Family Medicine; Visit Provider Obstetrics & Gynecology
DX: E28.2 Polycystic ovarian syndrome (principal); N92.6 Irregular menstruation, unspecified
CPT/HCPCS: 36415; 84144

== ENCOUNTER → 2020-02-17 15:05 | Outpatient (CLI) | payer MEDICAID, SELFPAY ==
[2019-09-10 09:16] VITALS: BMI 31.1
[2020-02-17 16:15] LABS: Progesterone Level 1.49 ng/mL (See Comment)
== END ==
PROVIDERS: PCP Family Medicine; Visit Provider Obstetrics & Gynecology
DX: N92.6 Irregular menstruation, unspecified (principal)
CPT/HCPCS: 36415; 84144

== ENCOUNTER → 2020-03-02 11:35 | Outpatient (CLI) | payer MEDICAID, SELFPAY ==
[2019-09-10 09:16] VITALS: BMI 31.1
[2020-03-02 12:36] LABS: hCG Titer Quant., Serum 97 mIU/mL (1-3)
== END ==
PROVIDERS: PCP Family Medicine; Visit Provider Obstetrics & Gynecology
DX: Z32.01 Encounter for pregnancy test, result positive (principal)
CPT/HCPCS: 36415; 84702

== ENCOUNTER → 2020-03-04 11:20 | Outpatient (CLI) | payer MEDICAID, SELFPAY ==
[2019-09-10 09:16] VITALS: BMI 31.1
[2020-03-04 13:19] LABS: hCG Titer Quant., Serum 268 mIU/mL (1-3)
== END ==
PROVIDERS: PCP Family Medicine; Visit Provider Obstetrics & Gynecology
DX: Z34.81 Encounter for supervision of other normal pregnancy, first trimester (principal)
CPT/HCPCS: 36415; 84702

== ENCOUNTER → 2020-04-13 17:17 | Outpatient (CLI) | payer MEDICAID, SELFPAY ==
[2019-09-10 09:16] VITALS: BMI 31.1
== END ==
PROVIDERS: PCP Family Medicine; Referring Provider Registered Nurse; Visit Provider Registered Nurse
DX: J02.9 Acute pharyngitis, unspecified (principal); Z11.3 Encounter for screening for infections with a predominantly sexual mode of transmission
CPT/HCPCS: 87491; 87591; 87635; C9803; U0003

== ENCOUNTER → 2020-04-13 | Outpatient (CLI) | payer MEDICAID, SELFPAY ==
[2019-09-10 09:16] VITALS: BMI 31.1
[2020-04-15 05:07] LABS: Chlamydia By Nucleic Acid AMP Negative (Negative)
[2020-04-15 07:46] LABS: Gonococcus By Nucleic Acid AMP Negative (Negative)
== END | disposition home or self-care (01) ==
LOC: LABSPEC 13:13
PROVIDERS: PCP Family Medicine; Visit Provider Obstetrics & Gynecology
DX: Z11.3 Encounter for screening for infections with a predominantly sexual mode of transmission (principal)
CPT/HCPCS: 87491; 87591

== ENCOUNTER → 2020-04-28 13:30 | Outpatient (CLI) | payer MEDICAID, SELFPAY ==
[2019-09-10 09:16] VITALS: BMI 31.1
[2020-04-28 14:10] LABS: Color, Urine Yellow (Yellow); Glucose, Dipstick Normal (Normal); Ketone-Dipstick Negative (Negative); Leukocyte Esterase-Dipstick 100 /ul (Negative); Nitrite-Dipstick Negative (Negative); Occult Blood-Urine 10 /ul (Negative); Protein-Dipstick Negative (Negative); Urine Bilirubin Dipstick Negative (Negative); Urine Clarity Clear (Clear); Urine Urobilinogen Normal (Normal)
[2020-04-28 14:23] LABS: Amphetamine Urine VISTA NEGATIVE (<1000 ng/mL); Barbiturate Urine VISTA NEGATIVE (< 200 ng/mL); Benzodiazepine Urine VISTA NEGATIVE (< 200 ng/mL); Cocaine Urine VISTA NEGATIVE (< 300 ng/mL); Ecstacy Urine VISTA NEGATIVE (< 500 ng/mL); Methadone Urine VISTA NEGATIVE (< 300 ng/mL); PCP Urine VISTA NEGATIVE (< 25 ng/mL); THC Urine VISTA NEGATIVE (< 50 ng/mL); Vista UDS pH Range 6
[2020-04-28 14:25] LABS: Absolute Lymphocyte Count 2.77 X10^3/uL (0.83-4.51); Absolute Neutrophil Count 6.5 X10^3/uL (2.0-7.7); Basophil# 0.03 X10^3/uL; Basophil% 0.3 % (0-1); Eosinophil# 0.09 X10^3/uL; Eosinophils% 0.9 % (0-5); Hematocrit 41.3 % (37-47); Hemoglobin 13.8 g/dL (12.0-15.0); Lymphocyte # 2.77 X10^3/ul (4.0); Lymphocyte % 27.4 % (19-41); Mean Corp Hgb Conc 33.4 g/dL (32-36); Mean Corpuscular Hgb 28.6 pg (27.0-32.0); Mean Corpuscular Volume 85.7 fL (81-99); Mean Platelet Vol. 10.5 fl (6.2-12.0); Monocyte# 0.73 X10^3/uL; Monocyte% 7.2 % (0-10); NRBC Flagged by Analyzer 0 % (0-5); Neutrophil # 6.45 X10^3/uL (2.7-7.7); Neutrophil % 63.8 % (47-70); Platelet Count 259 K/mm3 (150-450); RBC Distribution Width SD 37.4 fl (35.1-43.9); Red Blood Count 4.82 M/mm3 (4.2-5.4); White Blood Count 10.1 K/mm3 (4.4-11.0)
[2020-04-28 14:45] LABS: Thyroid Stim Hormone (TSH) 1.48 uIU/mL (0.358-3.74)
[2020-04-28 14:55] LABS: Hepatitis B Surface Antigen Non-Reactive (Nonreactive)
[2020-04-28 14:57] LABS: Rubella IgG Reactive (Nonreactive)
[2020-04-28 15:16] LABS: HIV - WCH Non-Reactive (Nonreactive); Hepatitis C Antibody Non-Reactive (Nonreactive)
[2020-05-05 02:10] LABS: Prenatal RPR NONREACTIVE (NONREACTIVE)
== END ==
PROVIDERS: PCP Family Medicine; Visit Provider Obstetrics & Gynecology
DX: Z34.81 Encounter for supervision of other normal pregnancy, first trimester (principal)
CPT/HCPCS: 36415; 80307; 81002; 84443; 85025; 86703; 86762; 86803; 87340

== ENCOUNTER 2020-10-27 00:10 | Outpatient (CLI) | payer MEDICAID, SELFPAY ==
[2019-09-10 09:16] VITALS: BMI 31.1
[2020-10-27 00:25] VITALS: TEMP 37.1; O2SAT 98
[2020-10-27 00:26] VITALS: BP 121/69; PULSE 88
[2020-10-27 00:35] VITALS: BMI 34.4
--- NOTE | 2020-10-27 12:18 | OB.TRI.PN ---
Progress Notes Date of Service: 10/26/20 Progress Note: Presented to labor and delivery at 38w3d with complaint of back pain and contractions. Rating pain 8/10 O: FHR 135, moderate variability, accels, Reactive Irregular contractions Cervic 1cm, unchanged from office Assessment & Plan Assessment/Plan (1) False labor: Status: Acute Code(s): O47.9 - False labor, unspecified Plan: 1) False labor. Pain reduced from 8/10 to 3/10 2) Labor instructions reviewed 3) D/C home
== END 2020-10-27 01:20 | disposition home or self-care (01) ==
PROVIDERS: PCP Family Medicine; Visit Provider Advanced Practice Midwife
DX: O47.1 False labor at or after 37 completed weeks of gestation (principal); Z3A.38 38 weeks gestation of pregnancy
CPT/HCPCS: 59025; 59050; 99218; G0378

== ENCOUNTER → 2020-11-09 14:07 | Outpatient (CLI) | payer MEDICAID, SELFPAY ==
[2020-10-27 00:35] VITALS: BMI 34.4
== END ==
PROVIDERS: PCP Family Medicine; Referring Provider Obstetrics & Gynecology; Visit Provider Obstetrics & Gynecology
DX: Z03.818 Encounter for observation for suspected exposure to other biological agents ruled out (principal)
CPT/HCPCS: 87635; C9803; U0002

== ENCOUNTER 2020-11-10 15:55 | Outpatient (CLI) | payer MEDICAID, SELFPAY ==
[2020-11-10 16:06] VITALS: BP 127/76; PULSE 87
[2020-11-10 16:24] VITALS: BMI 34.8
[2020-11-10] MEDS: 0.9% Normal Saline Single 100 ML IV.SOLN. INTRA-UTER (16:30)
--- NOTE | 2020-11-10 16:42 | OB.TRI.NOTE ---
HPI - General HPI Narrative CHELSEY GLALEGOS, is a 25 F who presents for schwartz bulb insertion. PFSH Medical History (Updated 11/10/20 @ 16:[address] Mino Maldonado MD) Abdominal pain Acute cholecystitis Asthma Diarrhea Nausea & vomiting Home Medications acetaminophen 650 mg PO Q6H PRN PRN tab 07/18/19 [Rx Last Taken Unknown] albuterol sulfate 1 - 2 puff INHALATION Q6H PRN PRN 09/09/19 [History Last Taken Unknown] Allergy/AdvReac Type Severity Reaction Status Date / Time guaifenesin [From Robitussin] Allergy Intermediate elevated Verified 10/27/20 00:37 heart rate Family History Grandmother Asthma Aunt Diabetes Uncle Diabetes Grandfather Diabetes Mother Hypertension Surgical History No history of previous surgery S/P laparoscopic cholecystectomy Social History (Updated 08/04/19 @ 10:[address] Pedro Pablo Ramirez MD) Smoking Status: Current every day smoker alcohol intake: current alcohol intake frequency: a few times a month substance use type: does not use Physical Exam Const alert, oriented x3 and no apparent distress GI GI Narrative: cvx - 1/60/-3 Extremity normal to inspection NST FHR Rate Baby A Baseline: 155 Variability:: Moderate Accelerations:: 15 x 15 Decelerations:: Variable Uterine Activity:: None Assessment & Plan Assessment/Plan (1) Supervision of normal first : QUALIFIERS: Trimester: third trimester Qualified Code(s): Z34.03 - Encounter for supervision of normal first , third trimester PLAN: Patient @ 40&5 Intracervical schwartz placed & expectations reviewed Reviewed labor & FM precautions Patient scheduled for induction tomorrow mary at 7am
[2020-11-10 17:35] VITALS: BP 129/78; PULSE 93
== END 2020-11-10 17:40 | disposition home or self-care (01) ==
LOC: WPOUT 16:01 → WP 16:03
PROVIDERS: PCP Family Medicine; Referring Provider Obstetrics & Gynecology; Visit Provider Obstetrics & Gynecology
DX: O99.513 Diseases of the respiratory system complicating pregnancy, third trimester (principal); J45.909 Unspecified asthma, uncomplicated; O99.333 Smoking (tobacco) complicating pregnancy, third trimester; F17.200 Nicotine dependence, unspecified, uncomplicated; Z3A.40 40 weeks gestation of pregnancy; Z87.19 Personal history of other diseases of the digestive system
CPT/HCPCS: 51702; 59025; 59050; 99218; G0378

== ENCOUNTER 2020-11-11 07:05 | Inpatient (IN) | payer MEDICAID, SELFPAY ==
[2020-11-11] VITALS (104 sets, daily range): BP systolic 88–132; BP diastolic 50–81; PULSE 72–116; RESP 18; TEMP 36.3–37.3; O2SAT 90–100; BMI 35.2
[2020-11-11] MEDS: Lactated Ringers 1,000 ML 50 ML IV (07:50)
[2020-11-11 08:08] LABS: Absolute Lymphocyte Count 2.65 X10^3/uL (0.83-4.51); Basophil# 0.04 X10^3/uL; Basophil% 0.4 % (0-1); Eosinophil# 0.11 X10^3/uL; Hematocrit 38.7 % (37-47); Hemoglobin 12.8 g/dL (12.0-15.0); Lymphocyte # 2.65 X10^3/ul (0.83-4.51); Lymphocyte % 24.9 % (19-41); Mean Corp Hgb Conc 33.1 g/dL (32-36); Mean Corpuscular Hgb 28.8 pg (27.0-32.0); Mean Platelet Vol. 11.1 fl (6.2-12.0); Monocyte# 0.74 X10^3/uL; Monocyte% 6.9 % (0-10); NRBC Flagged by Analyzer 0 % (0-5); Neutrophil # 7.03 X10^3/uL (2.7-7.7); Platelet Count 257 K/mm3 (150-450); RBC Distribution Width CV 13.1 % (11.6-14.6); RBC Distribution Width SD 41.1 fl (35.1-43.9); Red Blood Count 4.45 M/mm3 (4.2-5.4); White Blood Count 10.7 K/mm3 (4.4-11.0)
[2020-11-11] MEDS: Oxytocin 30 units/NS 500 ml 30 UNITS/500 ML IV.SOLN IV (08:23)
[2020-11-11] MEDS: Albuterol 2.5 MG/3 ML VIAL.NEB. INHALATION ×2 (09:15→13:39)
[2020-11-11] MEDS: Lactated Ringers 500 ML 999 ML IV ×2 (11:58→15:38)
[2020-11-11] MEDS: fentaNYL-bupivacaine (epidural) 100 ML BAG EPIDURAL ×3 (12:43→23:55)
[2020-11-11] MEDS: Acetaminophen 325 MG Tablet PO (15:33)
[2020-11-11] MEDS: Lactated Ringers 1,000 ML 200 ML IV ×3 (17:39→23:20)
--- NOTE | 2020-11-11 19:00 | HP.PCM.OB_ITS ---
HPI - General General Date of Admission: 11/11/20 HPI Narrative CHELSEY GALLEGOS, 25 1 para 0 who presents at 40-4/7 weeks with EDC of 11/07/2020 for induction of labor. [facility] Medical History (Updated 11/11/20 @ 19:[address] Bonny Bella MD) Abdominal pain Acute cholecystitis Acute cholecystitis Asthma Diarrhea Nausea & vomiting Polycystic ovarian syndrome Home Medications acetaminophen 650 mg PO Q6H PRN PRN tab 07/18/19 [Rx Last Taken 1 Day Ago ~11/10/20] albuterol sulfate 1 - 2 puff INHALATION Q6H PRN PRN 09/09/19 [History Last Taken 1 Month Ago ~10/12/20] 1 cap PO/SL DAILY 11/10/20 [History Last Taken 11/10/20 12:00] Allergy/AdvReac Type Severity Reaction Status Date / Time guaifenesin [From Robitussin] Allergy Intermediate elevated Verified 11/11/20 07:10 heart rate Family History Grandmother Asthma Aunt Diabetes Uncle Diabetes Grandfather Diabetes Mother Hypertension Surgical History (Updated 11/11/20 @ 07:36 by Annmarie De Jesus) History of surgery S/P laparoscopic cholecystectomy Social History (Updated 08/04/19 @ 10:[address] Pedro Pablo Ramirez MD) Smoking Status: Former smoker alcohol intake: current alcohol intake frequency: a few times a month substance use type: does not use History Elective abortions Hx Para 0 Spontaneous abortions Hx # Term Pregnancies Ectopic pregnancies Hx # Pregnancies Multiple births # of living children ROS Constitutional Constitutional: Denies fatigue, fever(s) or malaise Eyes Eyes: Denies change in vision ENT HEENT: Denies dizziness or headache(s) Cardiovascular Cardiovascular: Denies chest pain, dyspnea or lightheadedness Respiratory/Chest Respiratory/Chest: Denies cough or dyspnea Gastrointestinal Gastrointestinal: Denies change in bowel habits Genitourinary Genitourinary: Denies burning urination or genital lesions Integumentary Integumentary: Denies rash Neurologic Neurologic: Denies confusion, dizziness, headache(s), numbness or weakness Vital Signs Vital Signs Vital Signs: 11/11/20 07:25 11/11/20 07:26 11/11/20 09:02 Temperature 98.3 F 98.2 F Temperature Source Temporal Pulse Rate 95 100 89 Respiratory Rate Blood Pressure 118/75 118/75 132/63 H BP Systolic 118 118 132 BP Diastolic 75 75 63 Pulse Ox 98 11/11/20 09:15 11/11/20 09:33 11/11/20 09:34 Temperature 98.4 F Temperature Source Pulse Rate 86 100 Respiratory Rate 18 Blood Pressure 122/66 H BP Systolic 122 BP Diastolic 66 Pulse Ox 98 11/11/20 10:19 11/11/20 10:27 11/11/20 10:28 Temperature 98.0 F 98.1 F Temperature Source Pulse Rate 90 Respiratory Rate Blood Pressure 121/63 H BP Systolic 121 BP Diastolic 63 Pulse Ox 11/11/20 11:13 11/11/20 12:14 11/11/20 12:15 Temperature Temperature Source Pulse Rate 89 81 Respiratory Rate Blood Pressure 106/57 L 114/67 BP Systolic 106 114 BP Diastolic 57 67 Pulse Ox 98 11/11/20 12:22 11/11/20 12:23 11/11/20 12:25 Temperature Temperature Source Pulse Rate 88 95 96 Respiratory Rate Blood Pressure 122/70 H 121/69 H BP Systolic 122 121 BP Diastolic 70 69 Pulse Ox 99 11/11/20 12:28 11/11/20 12:31 11/11/20 12:33 Temperature Temperature Source Pulse Rate 103 H 112 H 93 Respiratory Rate Blood Pressure BP Systolic BP Diastolic Pulse Ox 99 91 100 11/11/20 12:36 11/11/20 12:38 11/11/20 12:40 Temperature Temperature Source Pulse Rate 91 96 90 Respiratory Rate Blood Pressure 130/76 H 128/79 H BP Systolic 130 128 BP Diastolic 76 79 Pulse Ox 100 11/11/20 12:43 11/11/20 12:45 11/11/20 12:48 Temperature Temperature Source Pulse Rate 98 107 H 99 Respiratory Rate Blood Pressure 125/80 H BP Systolic 125 BP Diastolic 80 Pulse Ox 98 99 11/11/20 12:50 11/11/20 12:51 11/11/20 12:53 Temperature Temperature Source Pulse Rate 102 H 98 94 Respiratory Rate Blood Pressure 120/74 BP Systolic 120 BP Diastolic 74 Pulse Ox 90 99 11/11/20 12:56 11/11/20 12:58 11/11/20 13:00 Temperature Temperature Source Pulse Rate 91 94 89 Respiratory Rate Blood Pressure 102/60 108/62 BP Systolic 102 108 BP Diastolic 60 62 Pulse Ox 98 11/11/20 13:03 11/11/20 13:04 11/11/20 13:06 Temperature 97.3 F L Temperature Source Pulse Rate 92 100 Respiratory Rate Blood Pressure 109/59 L BP Systolic 109 BP Diastolic 59 Pulse Ox 98 98 11/11/20 13:08 11/11/20 13:11 11/11/20 13:13 Temperature Temperature Source Pulse Rate 84 88 93 Respiratory Rate Blood Pressure 113/69 BP Systolic 113 BP Diastolic 69 Pulse Ox 97 98 11/11/20 13:15 11/11/20 13:18 11/11/20 13:20 Temperature Temperature Source Pulse Rate 100 96 85 Respiratory Rate Blood Pressure 109/66 112/67 BP Systolic 109 112 BP Diastolic 66 67 Pulse Ox 97 11/11/20 13:23 11/11/20 13:25 11/11/20 13:26 Temperature 99.1 F Temperature Source Pulse Rate 86 90 Respiratory Rate Blood Pressure 108/65 BP Systolic 108 BP Diastolic 65 Pulse Ox 97 11/11/20 13:28 11/11/20 13:30 11/11/20 13:33 Temperature Temperature Source Pulse Rate 87 95 91 Respiratory Rate Blood Pressure 122/71 H BP Systolic 122 BP Diastolic 71 Pulse Ox 98 98 11/11/20 13:38 11/11/20 13:40 11/11/20 13:43 Temperature Temperature Source Pulse Rate 89 84 81 Respiratory Rate 18 Blood Pressure BP Systolic BP Diastolic Pulse Ox 100 99 11/11/20 13:48 11/11/20 13:53 11/11/20 13:58 Temperature Temperature Source Pulse Rate 99 101 H 113 H Respiratory Rate Blood Pressure BP Systolic BP Diastolic Pulse Ox 98 98 98 11/11/20 14:01 11/11/20 14:03 11/11/20 14:08 Temperature Temperature Source Pulse Rate 96 89 96 Respiratory Rate Blood Pressure 124/58 H BP Systolic 124 BP Diastolic 58 Pulse Ox 98 98 11/11/20 14:13 11/11/20 14:18 11/11/20 14:19 Temperature 97.9 F Temperature Source Pulse Rate 83 93 Respiratory Rate Blood Pressure BP Systolic BP Diastolic Pulse Ox 97 97 11/11/20 14:23 11/11/20 14:28 11/11/20 14:32 Temperature Temperature Source Pulse Rate 92 116 H 109 H Respiratory Rate Blood Pressure 109/59 L BP Systolic 109 BP Diastolic 59 Pulse Ox 96 98 11/11/20 15:14 11/11/20 15:16 11/11/20 15:19 Temperature Temperature Source Pulse Rate 86 97 78 Respiratory Rate Blood Pressure 95/51 L BP Systolic 95 BP Diastolic 51 Pulse Ox 98 98 11/11/20 15:24 11/11/20 15:27 11/11/20 15:28 Temperature 97.9 F Temperature Source Pulse Rate 106 H 80 Respiratory Rate Blood Pressure 95/50 L BP Systolic 95 BP Diastolic 50 Pulse Ox 98 11/11/20 15:29 11/11/20 15:34 11/11/20 15:37 Temperature Temperature Source Pulse Rate 89 88 81 Respiratory Rate Blood Pressure 90/50 L BP Systolic 90 BP Diastolic 50 Pulse Ox 98 98 11/11/20 15:43 11/11/20 15:48 11/11/20 15:53 Temperature Temperature Source Pulse Rate 95 87 94 Respiratory Rate Blood Pressure 95/53 L 107/56 L 100/57 L BP Systolic 95 107 100 BP Diastolic 53 56 57 Pulse Ox 11/11/20 15:58 11/11/20 16:04 11/11/20 16:08 Temperature Temperature Source Pulse Rate 78 84 81 Respiratory Rate Blood Pressure 93/55 L 95/51 L 89/50 L BP Systolic 93 95 89 BP Diastolic 55 51 50 Pulse Ox 11/11/20 16:14 11/11/20 16:19 11/11/20 16:24 Temperature Temperature Source Pulse Rate 76 76 74 Respiratory Rate Blood Pressure 92/50 L 89/51 L 91/54 L BP Systolic 92 89 91 BP Diastolic 50 51 54 Pulse Ox 11/11/20 16:30 11/11/20 16:33 11/11/20 16:38 Temperature Temperature Source Pulse Rate 76 73 93 Respiratory Rate Blood Pressure 96/52 L 88/53 L 103/58 L BP Systolic 96 88 103 BP Diastolic 52 53 58 Pulse Ox 11/11/20 16:48 11/11/20 16:53 11/11/20 16:58 Temperature Temperature Source Pulse Rate 77 91 78 Respiratory Rate Blood Pressure 99/59 L 101/56 L 121/53 H BP Systolic 99 101 121 BP Diastolic 59 56 53 Pulse Ox 11/11/20 17:04 11/11/20 17:07 11/11/20 17:08 Temperature 98.2 F Temperature Source Pulse Rate 82 88 Respiratory Rate Blood Pressure 96/55 L 100/59 L BP Systolic 96 100 BP Diastolic 55 59 Pulse Ox 96 11/11/20 17:13 11/11/20 17:18 11/11/20 17:23 Temperature Temperature Source Pulse Rate 87 72 84 Respiratory Rate Blood Pressure 102/61 96/56 L 94/53 L BP Systolic 102 96 94 BP Diastolic 61 56 53 Pulse Ox 98 97 98 11/11/20 17:28 11/11/20 17:29 11/11/20 17:40 Temperature 98.3 F Temperature Source Pulse Rate 85 92 Respiratory Rate Blood Pressure 113/62 BP Systolic 113 BP Diastolic 62 Pulse Ox 97 11/11/20 18:00 11/11/20 18:31 11/11/20 18:37 Temperature 98.2 F Temperature Source Pulse Rate 81 85 85 Respiratory Rate Blood Pressure 111/68 118/81 H 108/58 L BP Systolic 111 118 108 BP Diastolic 68 81 58 Pulse Ox 98 Physical Exam Const alert and no apparent distress General Appearance: cooperative HEENT normocephalic Resp normal respiratory effort Cardio regular rate GI soft to palpation GI Narrative: gravid, nontender, appropriate for gestational age Extremity no calf tenderness General Extremity: edema Skin no wounds Rashes: No rashes noted Psych activity/motor behavior normal Assessment & Plan (1) Supervision of normal first : QUALIFIERS: Trimester: third trimester Qualified Code(s): Z34.03 - Encounter for supervision of normal first , third trimester PLAN: Risk benefits alternatives and personnel to induction labor were discussed with the patient, her questions were answered to her satisfaction she desires to proceed. Estimated weight is less than 4500 g clinically and pelvis is clinically adequate to expect vaginal delivery. May use nitrous oxide, IV pain medications or epidural as needed for pain control. Plan Pitocin and artificial rupture membranes induction today. Patient had overnight cervical ripening. Group B strep prophylaxis has been started (2) 40 weeks gestation of : (3) Elective induction of labor planned:
[2020-11-11] MEDS: Ondansetron 4 MG/2 ML Vial IV (19:15)
[2020-11-11] MEDS: DiphenhydrAMINE 50 MG/ML Syringe 25 MG IV (22:47)
[2020-11-12] VITALS (55 sets, daily range): BP systolic 81–147; BP diastolic 46–80; PULSE 75–137; RESP 16; TEMP 36.6–37.7; O2SAT 94–99
[2020-11-12] MEDS: Lactated Ringers 500 ML 999 ML IV (02:11)
[2020-11-12] MEDS: Ondansetron 4 MG/2 ML Vial IV (06:32)
[2020-11-12] MEDS: fentaNYL-bupivacaine (epidural) 100 ML BAG EPIDURAL (06:33)
[2020-11-12] MEDS: Lactated Ringers 1,000 ML 200 ML IV (06:40)
[2020-11-12] MEDS: Acetaminophen 325 MG Tablet PO (07:31)
[2020-11-12] MEDS: Oxytocin 30 units/NS 500 ml 30 UNITS/500 ML IV.SOLN 334 UNITS IV (09:37)
[2020-11-12] MEDS: Methylergonovine 0.2 MG/ML Ampul IM (09:43)
--- NOTE | 2020-11-12 10:03 | OP.PCM_ITS ---
Assessment & Plan (1) Normal vaginal delivery: Maternal Data Information Final RAMIDA: 11/08/20 Gestational age: 40 4/7 Vaginal Delivery Maternal Presentation Maternal Presentation: Elective Induction Type of Induction: Pitocin and Amniotomy Operative Information Date of Procedure: 11/12/20 Pre-Operative Diagnosis: labor Post-Operative Diagnosis: same Surgery / Procedure Performed: Spontaneous Vaginal Delivery Type of Anesthesia: Epidural Special Medications: none Drain: Fernandez to straight drain Estimated Blood Loss: 400 Findings Description of Procedure: A vigorous [female] was delivered [GREG] over a small first-degree vaginal laceration. The remainder the infant was delivered with maternal pushing and gentle traction only in less than 15 seconds. The Pitocin infusion was initiated for active management of the third stage. The cord was clamped and cut immediately so the baby could be handed off. Terminal meconium was noted at delivery and the infant was not immediately crying spontaneously. The was attended to by the waiting nursing staff. The placenta was delivered spontaneously and intact. The cervix and vagina were intact. The small first-degree vaginal laceration was oversewn with a 3-0 Vicryl Rapide suture with a [id number] stitch. Hemostasis was noted. Sponge and needle counts were correct. A vaginal sweep was completed by me. Delivery time 9:35 AM Presentation: GREG Amniotic Membrane Rupture Type: Artificial Amniotic Fluid Description: Clear Placental Delivery Description: Spontaneous Placenta Disposition: [facility] Cord Vessel Description: 3 Vessels Cord Entanglement: None Infant A Gender: Female ([place]) Delayed Cord Clamping: No Post Vaginal Delivery Medications Given After Delivery: IV Pitocin and IM Methergin (To prevent atony) Episiotomy Description: None Laceration: 1st degree Complication Complications: None
[2020-11-12] MEDS: Acetaminophen 500 MG Tablet 1000 MG PO (21:40)
[2020-11-13 02:55] VITALS: BP 121/65; PULSE 61; RESP 16; TEMP 36.6
[2020-11-13 02:56] VITALS: BP 121/65; PULSE 61
[2020-11-13] MEDS: Ibuprofen 600 MG Tablet PO (08:56)
[2020-11-13 09:00] VITALS: BP 112/66; PULSE 73; RESP 16; TEMP 36.6
[2020-11-13 09:01] VITALS: BP 112/66; PULSE 73
--- NOTE | 2020-11-17 09:37 | PCM.DC.SUM ---
Providers Date of Admission: 11/11/20 Primary Care Physician: Dr. Renata Camejo MD Reason For Visit: VAGINAL DELIVERY Diagnosis Discharge Diagnosis (1) Normal vaginal delivery: Status: Acute Code(s): O80 - Encounter for full-term uncomplicated delivery Medications at Discharge Home Medications acetaminophen 650 mg PO Q6H PRN PRN tab 07/18/19 albuterol sulfate 1 - 2 puff INHALATION Q6H PRN PRN 09/09/19 1 cap PO/SL DAILY 11/10/20 ABG / Lab / Microbiology Data Result Diagrams: 11/11/20 07:50 D/C Instructions Discharge Activity: May Shower May resume sexual activity in: 6 weeks Please Follow Up With: Bonny Bella MD When: Follow up with our office in 1-2 and 6 weeks or as needed. [phone] Meaningful Use Info Meaningful Use Diagnoses (Choose all that apply): None applicable Discharge Plan Admission Admit Date/Time: 11/11/20 07:05 Attending Provider: Bonny Bella Primary Care Provider: Renata Camejo Instructions Forms: Information Patient Instructions: After a Vaginal Discharge Orders/Prescriptions Prescriptions: No Action acetaminophen 325 MG tablet 650 mg PO Q6H PRN PRN (Reason: Pain Or Fever) RF: 0 albuterol sulfate 1 INHALER inhaler 1 - 2 puff inhalation Q6H PRN PRN (Reason: Asthma) RF: 0 1 cap PO/SL DAILY RF: 0 Referrals / Follow Up: Renata Camejo MD [Primary Care Provider] - Disposition Disposition (needs filled in before D/C Order can be placed): Home, self care
== END 2020-11-13 12:50 | disposition home or self-care (01) | DRG 560 ==
PROVIDERS: Admitting Provider Obstetrics & Gynecology; PCP Family Medicine; Referring Provider Obstetrics & Gynecology; Visit Provider Obstetrics & Gynecology
DX: O99.284 Endocrine, nutritional and metabolic diseases complicating childbirth (principal); E28.2 Polycystic ovarian syndrome; Z3A.40 40 weeks gestation of pregnancy; Z37.0 Single live birth; J45.909 Unspecified asthma, uncomplicated; Z87.891 Personal history of nicotine dependence; O70.0 First degree perineal laceration during delivery; O99.513 Diseases of the respiratory system complicating pregnancy, third trimester; Z87.19 Personal history of other diseases of the digestive system
CPT/HCPCS: 51702; 59025; 59050; 85025; 86850; 86900; 86901; 87635; 94640; 99218; C9803; J7120; G0378; J2405; U0002

== ENCOUNTER 2021-12-08 23:19 | Emergency (ER) | payer OTHER, MEDICAID, SELFPAY ==
[2021-12-08 23:20] VITALS: BP 110/78; PULSE 82; RESP 15; TEMP 36.4; O2SAT 98; BMI 33.2
--- NOTE | 2021-12-08 23:42 | ED.VIS.BACK ---
HPI History of Present Illness Chief Complaint: Back Informant: patient Narrative Narrative: Patient presenting low back injury occurring at work 6 PM. Works at [email or web address], [facility] patient was falling back when she caught her. She is holding her. Did not have pain right away. Hour later started having lower back pain worse with movement. No radicular symptoms. Took Tylenol. History of right-sided sciatica in the past. Denies any sciatica symptoms currently. Denies history of gastric ulcers or kidney injury. No previous work-related injuries in the past. No other complaints. No other injuries. PFSH PFSH Medical History Abdominal pain Acute cholecystitis Acute cholecystitis Asthma Diarrhea Nausea & vomiting Polycystic ovarian syndrome Home Medications acetaminophen 650 mg PO Q6H PRN PRN tab 07/18/19 [Rx Last Taken 1 Day Ago ~11/10/20] albuterol sulfate 1 - 2 puff INHALATION Q6H PRN PRN 09/09/19 [History Last Taken 1 Month Ago ~10/12/20] 1 cap PO/SL DAILY 11/10/20 [History Last Taken 11/10/20 12:00] Allergy/AdvReac Type Severity Reaction Status Date / Time guaifenesin [From Robitussin] Allergy Intermediate elevated Verified 11/11/20 07:10 heart rate Family History Grandmother Asthma Aunt Diabetes Uncle Diabetes Grandfather Diabetes Mother Hypertension Surgical History History of surgery S/P laparoscopic cholecystectomy Social History Smoking Status: Current some day smoker tobacco type: cigarettes alcohol intake: current alcohol intake frequency: a few times a month substance use type: does not use ROS ROS ED Constitutional Constitutional ED: Denies chills, fever(s) or sweats Eyes Eyes: Denies change in vision ENT ENT ED: Denies dysphagia or sore throat Cardiovascular Cardiovascular: Denies chest pain, leg edema, palpitations or racing heartbeat Respiratory/Chest Respiratory/Chest: Denies cough, dyspnea or dyspnea on exertion Gastrointestinal Gastrointestinal: Denies abdominal pain, diarrhea, nausea or vomiting Genitourinary Genitourinary ED: Denies dysuria, hematuria or urinary frequency Musculoskeletal Musculoskeletal: Reports back pain; Denies extremity pain or neck pain Integumentary Denies rash or wounds Neurologic Neurologic: Denies headache(s), paresthesias or weakness EXAM Physical Exam Const Vital Signs: 12/08/21 23:20 Temperature 97.6 F L Temperature Source Temporal Pulse Rate 82 Respiratory Rate 15 Blood Pressure 110/78 Blood Pressure Mean 88 Pulse Ox 98 Oxygen Delivery Method Room Air Positive well nourished and well developed General Appearance ED: well developed and NAD HEENT Reports moist mucous membranes normocephalic and atraumatic Eyes PERRL, EOMs intact bilaterally and conjunctivae normal General Eye ED: Yes normal appearance of both eyes Neck no lymphadenopathy and supple General: Negative for tenderness Chest Wall Chest: Negative for tenderness Resp normal respiratory effort and normal air movement Effort and Inspection: symmetric chest movement; Negative for respiratory distress Cardio regular rate, regular rhythm and no murmurs Peripheral Pulses: pulses 2+ throughout GI normal to inspection, nondistended, normoactive bowel sounds and non-tender Palpation: Negative for guarding or rebound tenderness present Back/Spine no CVA tenderness Back/Spine Narrative: No midline tenderness, paralumbar tenderness more in the upper section. Straight leg test negative. 2+ patellar reflex bilaterally. Extremity normal to inspection General Extremety ED: Negative for edema or tenderness General Extremity: Negative for edema Neuro oriented x3 and no sensory deficits noted Sensorium / Orientation: awake and alert Skin no rashes or lesions noted and no wounds MDM MDM MDM Narrative Medical decision making narrative: Patient history and exam consistent with acute lumbar strain. There is no sciatica symptoms. Appropriate work restrictions given. She will continue Tylenol or Motrin. She will follow-up with occupational health. Discharge Plan Triage Chief Complaint: Back ED Provider: Ignacio Ward Dx/Rx/DC Orders Clinical Impression: Acute lumbosacral myofascial strain, History of sciatica Instructions: ED Back Sprain/Strain Prescriptions: No Action acetaminophen 325 MG tablet 650 mg PO Q6H PRN PRN (Reason: Pain Or Fever) RF: 0 albuterol sulfate 1 INHALER inhaler 1 - 2 puff inhalation Q6H PRN PRN (Reason: Asthma) RF: 0 1 cap PO/SL DAILY RF: 0 Primary Care Provider: Renata Camejo Referrals: Renata Camejo MD [Primary Care Provider] - Activity Restrictions/Additional Instructions: Use Tylenol or Motrin every 6 hours as needed. Monitor symptoms. Follow-up with occupational health. Disposition Disposition: Home, Self Care Discharge Date/Time: 12/09/21 00:03
== END 2021-12-09 00:03 | disposition home or self-care (01) ==
PROVIDERS: Emergency Provider Emergency Medicine; PCP Family Medicine; Visit Provider Emergency Medicine
DX: S39.012A Strain of muscle, fascia and tendon of lower back, initial encounter (principal); X50.0XXA Overexertion from strenuous movement or load, initial encounter; F17.210 Nicotine dependence, cigarettes, uncomplicated; Z87.19 Personal history of other diseases of the digestive system; J45.909 Unspecified asthma, uncomplicated; E28.2 Polycystic ovarian syndrome; M54.31 Sciatica, right side
CPT/HCPCS: 99282

== ENCOUNTER → 2021-12-26 | Outpatient (CLI) | payer OTHER, MEDICAID, SELFPAY ==
--- NOTE | 2021-12-26 16:12 | RAD_ITS ---
STUDY: X-RAY - LUMBAR SPINE REASON FOR EXAM: Female, 26 years old. Low back pain TECHNIQUE: 5 view(s) of the lumbar spine were obtained. COMPARISON: None FINDINGS: Normal lumbar lordosis. There is no substantial scoliosis. There is a normal alignment of the vertebrae. Normal vertebral bodies and endplates. Normal disc space heights. The soft tissue structures are unremarkable. RAD/L/S Spine Min 4 Views IMPRESSION: Normal x-ray examination of the lumbar spine. Electronically Signed: Blas Moy MD at 17:04 EDT ,
== END | disposition home or self-care (01) ==
PROVIDERS: PCP Family Medicine; Referring Provider Physician Assistant Surgical; Visit Provider Physician Assistant Surgical
DX: S39.012A Strain of muscle, fascia and tendon of lower back, initial encounter (principal)
CPT/HCPCS: 72110

== ENCOUNTER 2024-02-22 20:56 | Emergency (ER) | payer MEDICAID, SELFPAY ==
[2024-02-22 20:57] VITALS: BP 129/86; PULSE 82; RESP 17; TEMP 36.4; O2SAT 100; BMI 32.6
[2024-02-22] MEDS: Acetaminophen 325 MG Tablet PO (21:57)
[2024-02-22] MEDS: Metoclopramide 10 MG/2 ML Vial 2.5 MG IV (21:58)
[2024-02-22] MEDS: 0.9% Normal Saline (1000mL) 1,000 ML 999 ML IV (21:58)
[2024-02-22] MEDS: dexAMETHasone 4 MG/ML Vial IV (22:04)
--- NOTE | 2024-02-22 22:46 | EDS_ITS ---
HPI History of Present Illness Chief Complaint: Headache PFSH PFS Medical History (Updated 02/22/24 @ 22:[address] Derick Avila, DO) Bipolar disorder Anxiety Depression Smoker Migraines URI (upper respiratory infection) Polycystic ovarian syndrome Acute cholecystitis Asthma Nausea & vomiting Diarrhea Abdominal pain Acute cholecystitis Home Medications ?Medication ?Instructions ?Recorded ?Last Taken ?Type albuterol sulfate 90 mcg/actuation 1 - 2 puff inhalation Q6H PRN PRN 09/09/19 1 Month Ago History aerosol inhaler Asthma ~10/12/20 metoclopramide HCl 5 mg tablet 5 mg PO Q8 #10 tabs 02/22/24 Unknown Rx (Reglan) Allergy/AdvReac Type Severity Reaction Status Date / Time guaifenesin (From Robitussin) Allergy Intermediate elevated Verified 02/22/24 20:57 heart rate Family History Grandmother Asthma Aunt Diabetes Uncle Diabetes Grandfather Diabetes Mother Hypertension Surgical History (Updated 02/22/24 @ 21:38 by Jeanine Cheatham) History of cholecystectomy History of surgery S/P laparoscopic cholecystectomy Social History Smoking Status: Current some day smoker tobacco type: e-cigarettes alcohol intake: current alcohol intake frequency: a few times a month substance use type: does not use EXAM Physical Exam Const Vital Signs: 02/22/24 20:57 02/22/24 22:56 Temperature 97.6 F L 98.2 F Temperature Source Temporal Pulse Rate 82 63 Respiratory Rate 17 15 Blood Pressure 129/86 H 100/66 Blood Pressure Mean 100 77 Pulse Ox 100 99 Oxygen Delivery Method Room Air MDM MDM MDM Narrative Medical decision making narrative: HISTORY OF PRESENT ILLNESS: 28year old female presents with headache. States headache started 2 days ago. She notes [id number] medicines have not helped. She denies any head trauma or vomiting. Denies any fever or neck stiffness. Denies any recent congregate settings. Patient denies sudden onset or thunderclap headache, denies maximal intensity within 1 minute, vomiting, neck pain or stiffness, changes in vision, fever, history malignancy, syncope, seizures. REVIEW OF SYSTEMS: All other systems reviewed and are negative except as noted in the history of present illness. At least 10 review of systems reviewed and are negative except as noted in history of present illness. PHYSICAL EXAM: Nursing triage notes reviewed, Vital signs reviewed Constitutional: please see [facility] HENT: MMM Eyes: Pupils equal round and reactive to light, Extraocular muscles intact Neck: No stridor, no JVD, full neck ROM Lungs: Clear to auscultation, No wheezing or rales. No increased work of breathing, no conversational dyspnea, no accessory muscle use, no nasal flaring. No respiratory distress noted Heart: Regular rate and rhythm, No murmurs, No rubs and No gallops, 2+ distal pulses (radial, femoral, posterior tibial) in all extremities Abdomen: Soft, there is no tenderness, rigidity, rebound or guarding, no obvious peritoneal signs, no palpable pulsatile abdominal masses, no auscultated abdominal bruit : No CVAT Extremities: No edema Neuro: Alert and oriented x3, neuro exam at baseline, cranial nerves II through XII are intact. No pain with extraocular muscle movement. There is negative test of skew. Normal speech. 5 of 5 strength in upper and lower extremities in flexion extension. Intact sensation to light touch in upper and lower extremity dermatomes. No truncal or extremity ataxia. No dysdiadochokinesia. Normal gait. 2+ reflexes. No meningeal signs. Negative Babinski. NIH of 0 Skin: No rash or lesions noted MEDICAL DECISION MAKING: Chief Complaint: Headache History obtained from others: none Consults: none ALL IMAGES (IF OBTAINED) HAVE BEEN PERSONALLY REVIEWED AND INTERPRETED BY MYSELF. [facility] Narrative: The patient was hemodynamically stable, afebrile and nontoxic-appearing. Neurologic exam without focal deficits. I considered the following differential diagnosis: Subarachnoid hemorrhage, epidural hematoma, ICH, meningitis, carotid artery dissection, primary headache (primary headache, migraine, tension headache, cluster headache) The patient looks great and is in no significant objective discomfort currently. The patient's headache is non-specific. Exam is unremarkable. Even still I wanted to rule out ICH, mass so I offered patient CT scan of the head. Patient was alert and orient x 3 and a capacity to make her medical sister chose to forego CT at this time. State she felt much better after 2 and half milligrams IV Reglan, fluids, Decadron and Tylenol. the patient is in no distress and the patient?s neurological exam is non-focal, neck is supple and without meningismus. The headache is not consistent with meningitis or infection, nor is it consistent with intracranial bleed (SAH etc.), carotid dissection, nor mass by history and examination. Medication and outpatient follow-up was instructed. The patient was instructed to return as needed or if symptoms changed or worsened, fever developed or inability to tolerate fluids. The patient agreed with plan. The patient and/or family, caregivers express understanding. The patient and/or family, caregivers agrees with the plan. Total critical care time today provided was at least 0 minutes. This excludes separately billable procedures. Critical care time (if documented) is secondary to the patient having high probability of clinically significant/life threatening deterioration in the patient's condition which required my urgent intervention. Shared decision making: I will have a discussion with the patient and or visitors regarding risk/benefits of further testing or admission. They will be made aware of of the risk/benefits inherent in this decision they will be given the opportunity to voice understanding. Impression: 1. Acute Headache 2. History of bipolar disorder Disposition: Discharge home This note was generated with Signifyd dictation software. It may contain incorrect words, spelling, and punctuation that were not noted in review of the chart prior to signing. Discharge Plan Triage Chief Complaint: Headache ED Provider: Derick Avila Dx/Rx/DC Orders Clinical Impression: Headache Instructions: ED Headache Unspecified Prescriptions: New metoclopramide HCl [Reglan] 5 mg tablet 5 mg PO Q8 Qty: 10 0RF No Action albuterol sulfate 1 INHALER inhaler 1 - 2 puff inhalation Q6H PRN PRN (Reason: Asthma) Stand Alone Forms: ED Work / School Excuse Primary Care Provider: Renata Camejo Referrals: Renata Camejo MD [Primary Care Provider] - Activity Restrictions/Additional Instructions: Thank you for trusting us with your care today! Please take Tylenol (2 pills, 650 mg), ibuprofen (2 pills, 400 mg) every 6 hours as needed for pain and fever control. Please take Reglan if the above regimen does not control your symptoms. Please return to the emergency department if your symptoms change or worsen. Please follow with your primary care physician for further outpatient evaluation and management. Print Language: Macedonian Disposition Disposition: Home, Self Care Discharge Date/Time: 02/22/24 23:15
[2024-02-22 22:56] VITALS: BP 100/66; PULSE 63; RESP 15; TEMP 36.8; O2SAT 99
== END 2024-02-22 23:15 | disposition home or self-care (01) ==
PROVIDERS: Emergency Provider Emergency Medicine; PCP Family Medicine; Visit Provider Emergency Medicine
DX: R51.9 Headache, unspecified (principal); F31.9 Bipolar disorder, unspecified; F17.290 Nicotine dependence, other tobacco product, uncomplicated
CPT/HCPCS: 96361; 96374; 96375; 99282; A4216

== ENCOUNTER 2024-11-25 19:48 | Emergency (ER) | payer MEDICAID, SELFPAY ==
[2024-11-25 19:49] VITALS: BP 134/89; PULSE 89; RESP 16; TEMP 36.6; O2SAT 98
[2024-11-25 20:24] LABS: Absolute Lymphocyte Count 3.13 X10^3/uL (0.83-4.51); Absolute Neutrophil Count 4.4 X10^3/uL (2.0-7.7); Basophil# 0.07 X10^3/uL; Basophil% 0.8 % (0-1); Eosinophil# 0.26 X10^3/uL; Eosinophils% 3.1 % (0-5); Hematocrit 45.4 % (37-47); Hemoglobin 15.4 g/dL (12.0-15.0); Lymphocyte # 3.13 X10^3/ul (0.83-4.51); Lymphocyte % 37.5 % (19-41); Mean Corp Hgb Conc 33.9 g/dL (32-36); Mean Corpuscular Hgb 28.7 pg (27.0-32.0); Mean Corpuscular Volume 84.5 fL (81-99); Mean Platelet Vol. 10.7 fl (6.2-12.0); NRBC Flagged by Analyzer 0 % (0-5); Neutrophil # 4.36 X10^3/uL (2.7-7.7); Neutrophil % 52.4 % (47-70); Platelet Count 311 K/mm3 (150-450); RBC Distribution Width CV 11.8 % (11.6-14.6); RBC Distribution Width SD 35.6 fl (35.1-43.9); Red Blood Count 5.37 M/mm3 (4.2-5.4); White Blood Count 8.3 K/mm3 (4.4-11.0)
[2024-11-25 20:37] LABS: ALB/GLOB Ratio 1.5 RATIO (0.9-2.4); AST(SGOT) 16 U/L (<=31); Alanine Aminotransfer ALT/SGPT 13 U/L (<=34); Albumin, Serum 4.3 g/dL (3.5-5.0); Alkaline Phosphatase 76 U/L (35-104); Anion Gap 10 (5-15); BUN 22 mg/dL (4-19); BUN/Creat Ratio 30.5 RATIO (10-20); Calcium,Total 9.2 mg/dL (7.6-11.0); Carbon Dioxide 23.5 mmol/L (21.0-32.0); Chloride 105 mmol/L (98-108); Creatinine, Serum 0.71 mg/dL (0.70-1.20); EST Glomerular Filtration Rate 118 (>60); Estimated Creatinine Clearance 106.18 ml/min (50-250); Globulin 2.8 g/dL (2.2-4.2); Glucose 104 mg/dL (70-99); Lipase 27 U/L (13-75); Protein, Total 7.1 g/dL (5.9-8.4); Sodium Level 138 mmol/L (133-145); Total Bilirubin 0.19 mg/dL (0.00-1.30)
[2024-11-25 20:39] LABS: Internal QC Validated? YES +Cl - CLEAR BKGD; Pregnancy, Serum, hCG Quali. NEGATIVE Negative
[2024-11-25 21:48] VITALS: BP 120/87; PULSE 80; RESP 18; O2SAT 98
--- NOTE | 2024-11-25 21:50 | CT_ITS ---
PROCEDURE: ABDOMEN/PELVIS W IV CONT ONLY 11/25/2024 REASON FOR EXAM: RIGHT LOWER QUADRANT ABDOMINAL PAIN, HISTORY OF PC TECHNIQUE: Abdomen and pelvis CT with intravenous contrast. Coronal and Sagittal reconstruction series were provided. CONTRAST: Isovue 370 VOLUME: 94 mL. One or more dose reduction techniques were used (e.g., Automated exposure control, adjustment of the mA and/or kV according to patient size, use of iterative reconstruction technique. RADIATION DOSE SUMMARY: CTDlvol: 9.97+ 12.85 mGy DLP: 716.15 mGycm COMPARISON: None. FINDINGS: Right breast 13 mm nodule. Lung bases: Clear. Liver: Normal size. No mass. Gallbladder: Surgically absent. Spleen: Normal size. Pancreas: Normal size without evidence of mass surrounding inflammation or ductal dilation. Adrenals: Normal. Kidneys: Normal renal sizes. No hydronephrosis. Bladder: Normal. Reproductive Organs: Right ovarian 3.7 cm and left ovarian 4.1 cm cysts. Bowel: Dense colonic stool. Normal caliber large and small bowel. Appendix: Normal caliber. No inflammatory change. Lymph nodes: Unremarkable. Vasculature: The abdominal aorta and IVC are normal. Peritoneum / Retroperitoneum: Normal. Bones: Unremarkable. CT/Abdomen/Pelvis W IV Cont ONLY IMPRESSION: Bilateral ovarian cysts, within the physiologic size range for the patient's ag e. If there is clinical concern for torsion, consider ultrasound. Normal caliber appendix. Dense colonic stool which may suggest constipation. Right breast 13 mm nodule. Correlate with mammography. Reading Location: [place] [id number]
[2024-11-25] MEDS: Morphine 4 MG/ML Syringe IV (21:55)
[2024-11-25] MEDS: Ondansetron 4 MG/2 ML Vial IV (21:55)
--- NOTE | 2024-11-25 22:53 | EX.ED.DYSGE1 ---
HPI History of Present Illness Chief Complaint: Abd Pain Detail of Chief Complaint: Acute abrupt right lower quadrant abdominal pain Informant: patient Onset/Context/Timing Onset: Today and Hours Context: Sudden Onset Timing: Continuous and Waxes and wanes Quality: Pain Location: Right lower quadrant Current Severity: Mild Maximum Severity: Severe Worsened by: Lying on right side Relieved by: Markedly better patient sits on her left hip Associated Symptoms Associated Symptoms: Initially had nausea Narrative Narrative: Patient is a 29-year-old G1, P1 female who presents with abrupt onset of right lower quadrant abdominal pain. Patient denies fever, chills night sweats. She does endorse nausea without vomiting or diarrhea. She denies dysuria, frequency, urgency or hematuria. Patient has irregular periods due to polycystic ovarian syndrome. Patient denies shoulder pain. Patient denies orthostatic symptoms. There is no history of trauma. She denies anorexia. Prior similar symptoms: No Recent Illness/Hospitalization: No PFSH PFSH Medical History Bipolar disorder Anxiety Depression Smoker Migraines URI (upper respiratory infection) Polycystic ovarian syndrome Acute cholecystitis Asthma Nausea & vomiting Diarrhea Abdominal pain Acute cholecystitis Home Medications ?Medication ?Instructions ?Recorded ?Last Taken ?Type albuterol sulfate 90 mcg/actuation 1 - 2 puff inhalation Q6H PRN PRN 09/09/19 1 Month Ago History aerosol inhaler Asthma ~10/12/20 metoclopramide HCl 5 mg tablet 5 mg PO Q8 #10 tabs 02/22/24 Unknown Rx (Reglan) Allergy/AdvReac Type Severity Reaction Status Date / Time guaifenesin (From Robitussin) Allergy Intermediate elevated Verified 11/25/24 19:49 heart rate Family History Grandmother Asthma Aunt Diabetes Uncle Diabetes Grandfather Diabetes Mother Hypertension Surgical History History of cholecystectomy History of surgery S/P laparoscopic cholecystectomy Social History Smoking Status: Current some day smoker tobacco type: e-cigarettes alcohol intake: current alcohol intake frequency: a few times a month substance use type: does not use ROS ROS ED Constitutional Constitutional ED: Denies chills, fever(s), subjective, sweats or weight loss Cardiovascular Cardiovascular: Denies chest pain or palpitations Respiratory/Chest Respiratory/Chest: Denies cough, dyspnea or dyspnea on exertion Gastrointestinal Gastrointestinal: Reports abdominal pain and nausea; Denies constipation, diarrhea, melena or vomiting Genitourinary Genitourinary ED: Denies dysuria, hematuria or urinary frequency Musculoskeletal Musculoskeletal: Denies arthralgias, back pain, myalgias or neck pain Integumentary Denies rash Neurologic Neurologic: Denies headache(s) or paresthesias Psychiatric Psychiatric: Denies depression Hematologic/Lymphatic Hematologic/Lymphatic: Reports systems reviewed and no addt'l complaints, except as documented EXAM Physical Exam Const Vital Signs: 11/25/24 19:49 11/25/24 21:48 Temperature 97.8 F Temperature Source Temporal Pulse Rate 89 80 Respiratory Rate 16 18 Blood Pressure 134/89 H 120/87 H Blood Pressure Mean 104 98 Pulse Ox 98 98 Oxygen Delivery Method Room Air Positive well nourished and well developed Constitutional Narrative: Patient appears slightly uncomfortable. She is leaning on the her left side that she is reading a book. General Appearance ED: well developed; Negative for cyanotic, diaphoretic or pallor HEENT Reports moist mucous membranes HEENT Narrative: Head is atraumatic normocephalic. Ears normal. Nares patent. Patient does have piercings. Eyes PERRL and EOMs intact bilaterally General Eye ED: Negative for pale conjunctiva or scleral icterus Neck no lymphadenopathy, supple and no JVD Chest Wall inspection of chest normal and palpation of chest normal Resp normal respiratory effort and clear to auscultation bilaterally Cardio regular rate, regular rhythm, S1 normal heart sound, S2 normal heart sound and no murmurs GI normal to inspection, nondistended, normoactive bowel sounds, non-distended and no masses; Negative for non-tender or hepatosplenomegaly Auscultation: hypoactive bowel sounds Palpation: soft, tender RLQ and guarding RLQ; Negative for splenomegaly, mass or rebound tenderness present Narrative: There is no CVA tenderness. There is no suprapubic discomfort. Back/Spine no CVA tenderness Extremity normal to inspection General Extremety ED: Negative for edema General Extremity: Negative for edema Neuro oriented x3 and CN's II-XII intact bilaterally Sensorium / Orientation: alert Psych mental status grossly normal Skin no rashes or lesions noted, no wounds and skin turgor normal General Skin Exam: elasticity normal; Negative for jaundice or pallor MDM MDM MDM Narrative Medical decision making narrative: Differential diagnosis would include ruptured ovarian cyst, ectopic , appendicitis, mesenteric adenitis, abdominal pain of unknown etiology. Since patient has no diarrhea doubt inflammatory bowel disorder. Workup included CT appropriate blood work. Patient was medicated with morphine for her pain. History & Record Review Additional record(s) reviewed:: Prior inpatient record (Delivery note by Dr. Bonny Bella October 2020. Gestation 40 weeks.), Prior outpatient record (Urgent care visit for upper respiratory infection May 2022. And November 2021 for muscle strain.) and Prior ED visit (ER visit January 2024 for headache.) Lab Data Attestation: I reviewed the patient's lab results. Lab results narrative: White count is normal. Electrolyte panel is unremarkable. BUN to creatinine ratio slightly elevated 30-1. BUN is only 22. Glucose is slightly evaded 104. Serum test was negative. Labs: Laboratory Results - last 24 hr 11/25/24 20:05 WBC 8.3 RBC 5.37 Hgb 15.4 H Hct 45.4 MCV 84.5 MCH 28.7 MCHC 33.9 RDW Std Deviation 35.6 RDW Coeff of Alber 11.8 Plt Count 311 MPV 10.7 Immature Gran % (Auto) 0.200 Neut % (Auto) 52.4 Lymph % (Auto) 37.5 Antelope % (Auto) 6.0 Eos % (Auto) 3.1 Baso % (Auto) 0.8 Absolute Neuts (auto) 4.4 Absolute Lymphs (auto) 3.13 Nucleated RBC % 0 Sodium 138 Potassium 4.0 Chloride 105 Carbon Dioxide 23.5 Anion Gap 10 BUN 22 H Creatinine 0.71 Estim Creat Clear Calc 106.18 Est GFR (MDRD) Non-Af 118 BUN/Creatinine Ratio 30.5 H Glucose 104 H Calcium 9.2 Total Bilirubin 0.19 AST 16 ALT 13 Alkaline Phosphatase 76 Total Protein 7.1 Albumin 4.3 Globulin 2.8 Albumin/Globulin Ratio 1.5 Lipase 27 Serum , Qual NEGATIVE Radiography Diagnostic Testing: Clinical Impression(s) from Imaging Studies Abdomen/Pelvis CT 11/25/24 21:50 IMPRESSION: Bilateral ovarian cysts, within the physiologic size range for the patient's age. If there is clinical concern for torsion, consider ultrasound. Normal caliber appendix. Dense colonic stool which may suggest constipation. Right breast 13 mm nodule. Correlate with mammography. Reading Location: [place] [address] Patient noted to have significant bilateral ovarian cysts. There is no free fluid noted. Appendix on my review was unremarkable. Patient does have a significant mount of fecal material noted. The radiology report was reviewed. Of note and patient will need follow-up she has a right breast nodule that is 13 mm. Recommends mammogram. Will have her follow-up with her doctor. Treatment and Re-Evaluation :: Patient was informed of her CAT scan results and concern regarding breast nodule. There is a paternal family history of breast cancer. Discharge Plan Triage Chief Complaint: Abd Pain ED Provider: Martin Hare Dx/Rx/DC Orders Clinical Impression: Acute right lower quadrant pain, Obstipation, Breast mass, right, PCOD (polycystic ovarian disease) Instructions: ED Abdominal Pain Unkn Cause Fem, ED Breast Lump, Uncertain Cause, ED Constipation (Adult) Prescriptions: No Action albuterol sulfate 1 INHALER inhaler 1 - 2 puff inhalation Q6H PRN PRN (Reason: Asthma) metoclopramide HCl [Reglan] 5 mg tablet 5 mg PO Q8 Qty: 10 0RF Primary Care Provider: Renata Camejo Referrals: Renata Camejo MD [Primary Care Provider] - 3-5 Days Activity Restrictions/Additional Instructions: 1. Call your doctor for outpatient follow-up of the breast nodule/mass. In light of your age you will probably need an ultrasound. 2. MiraLAX 1 cap in full glass of fluids 3 times a day for the next week Print Language: Slovenian Disposition Disposition: Home, Self Care
[2024-11-25 23:00] VITALS: BP 112/78; PULSE 87; O2SAT 100
[2024-11-25 23:07] VITALS: BP 112/78; PULSE 87; RESP 16; TEMP 36.8; O2SAT 100
== END 2024-11-25 23:10 | disposition home or self-care (01) ==
PROVIDERS: Emergency Provider Emergency Medicine; PCP Family Medicine; Visit Provider Emergency Medicine
DX: K59.00 Constipation, unspecified (principal); N63.10 Unspecified lump in the right breast, unspecified quadrant; E28.2 Polycystic ovarian syndrome; F17.290 Nicotine dependence, other tobacco product, uncomplicated
CPT/HCPCS: 74177; 80053; 83690; 84703; 85025; 96374; 96375; 99283; Q9967; A4216; J2405

== ENCOUNTER 2025-03-25 18:28 | Emergency (ER) | payer SELFPAY ==
[2025-03-25 18:29] VITALS: BP 125/86; PULSE 81; RESP 18; TEMP 36.3; O2SAT 100; BMI 30.4
--- OUTSIDE RECORDS SUMMARY | 2025-03-25 20:16 | XMS RPT_ITS | CCD ---
Author Organization [facility]iniSy[facility] Care Team Providers Care Instrument Repair Supervisor Name Role Phone Montse Child Primary Care Provider [phone] MATEUSZ TAVERAS, MONTSE Primary Care Physician [phone] Unavailable Primary Care Provider Dr. Renata Whelan Primary Care Provider Dr. Renata Child Referring Provider ALEXIS Hare Attending Provider [phone] MATEUSZ TAVERAS, MONTSE Primary Care Physician Mateusz TAVERAS, Montse Primary Care Provider [phone] PROVIDER, UNKNOWN Referring Unavailable Lishnevski, Montse Primary Care Unavailable Montse Child Attending Unavailable PROVIDER, UNKNOWN Referring Unavailable Lishnevski, Montse Primary Care Unavailable Montse Child Attending Unavailable Unavailable Primary Care Provider Unavaileula Child MD, Montse Primary Care Provider [phone] LISGENOSKI, MONTSE Primary Care Unavailable MERLOS, MAX Referring Unavailable LISHNEVSKI, MONTSE Primary Care Unavailable TYRELL DELANEY Attending Unavailable LISHNEVSKI, MONTSE Primary Care Unavailable MERLOS, MAX Attending Unavailable LISHNEVSKI, MONTSE Primary Care Unavailable MERLOS, MAX Referring Unavailable ALLA FLORES Referring Unavailable ALLA FLORES Attending Unavailable ALLA FLORES Attending Unavailable ALLA FLORES Referring Unavailable ALLA FLORES Referring Unavailable DR ELIE RODARTE MD Attending Unavaileula CHILD MD, MONTSE Primary Care Unavailable ALLISON DÍAZ MD Attending Unavail able MATEUSZ TAVERAS, MONTSE Primary Care Unavailable Mateusz TAVERAS, Montse Primary Care Provider Mateusz TAVERAS, Dr. Yanez Primary Care Provider Payam TAVERAS, Dr. Salazar Emergency Provider Renata Child Primary Care Unavailable Derick Avila Attending Unavailable Renata Child Primary Care Unavailable Martin Hare Attending Unavailable Allergies Allergy Classification Reported Allergen(s) Allergy Type Date of Onset Reaction(s) Facility (20 sources) guFENesin; Translations: [guaifenesin] Drug Allergy 8 Other (See Comments), Other: See Comments [place], [place] (6 sources) guaiFENesin Drug Allergy 8 Other [facility] (1 source) guaiFENesin Drug Allergy 5 [facility] Repository Medications Current Medications Medication Drug Class(es) Dates Sig (Normalized) Sig (Original) [id number] 200 actuat albuterol 0.09 mg/actuat metered dose inhaler (20 sources) beta2-Adrenergic Agonist Start: 06-21-2022 albuterol 108 (90 Base) MCG/ACT inhaler TAKE 2 (INHALATION) EVERY 4-6 HOURS 0 06/21/2022 Active Start: 08-21-2021 take 2 puff(s) by in halation every four hours as needed for wheezing ProAir HFA MDI (90 mcg/inh) inhalation aerosol 2 puff(s), Inhalation, q4h, PRN as needed for wheezing Start Date: 08/21/21 Status: Ordered Start: 08-21-2021 take 2 puff(s) by in halation every four hours as needed for wheezing ProAir HFA MDI (90 mcg/inh) inhalation aerosol 2 puff(s), Inhalation, q4h, PRN as needed for wheezing Start Date: 08/21/21 Status: Ordered Start: 09-15-2019 take 2 puff(s) by in halation every six hours as needed for wheezing albuterol sulfate HFA (PROVENTIL HFA) 108 (90 Base) MCG/ACT inhaler Inhale 2 puffs into the lungs every 6 hours as needed for Wheezing 1 Inhaler 3 09/15/2019 Active Start: 09-09-2019 Albuterol Sulf ate 1 INHALER inhaler Active 1 - 2 NMA INHALATION EVERY 6 HOURS NEEDED as needed for Asthma September 09, 2019 12:00am Start: 09-09-2019 take 1 puff(s) by in halation every six hours as needed Albuterol Sulfate Active 1 - 2 PUFF INHALATION EVERY 6 HOURS NEEDED September 09, 2019 3:10pm Start: 09-08-2018 take 2 puff(s) by in halation every four hours as needed for wheezing albuterol HFA (PROVENTIL HFA, VENTOLIN HFA) 90 mcg/actuation inhaler Indications: Bronchitis Inhale 2 Puffs as instructed every 4 hours as needed for Wheezing/Shortness of Breath. 1 Inhaler 0 09/08/2018 Active Comment on above: Inhale 2 Puffs as in structed every 4 hours as needed for Wheezing/Shortness of Breath. amoxicillin 875 mg / clavulanate 125 mg oral tablet (4 sources) Penicillin-class Antibacterial Start: 4 End: 4 take 1 tablet by mouth every twelve hours amoxicillin-cla vulanate 875 mg-125 mg oral tablet 1 tab(s), Oral, q12h, X 7 day(s), # 14 tab(s), 0 Refill(s), 12/09/23 1:12:00 AM EDT, 81.7 Start Date: 12/02/23 Stop Date: 12/09/23 Status: Ordered Start: 07-16-2019 End: 08-04-2019 Amoxicillin-Pot Clavulanate (Augmentin) 875-125 mg tablet Discontinued 1 {tbl} PO Q12H July 16, 2019 1:00am August 04, 2019 9:42am 60 actuat budesonide 0.09 mg/actuat dry powder inhaler (4 sources) Corticosteroid Start: 08-21-2021 take 1 dose by inhalation twice daily Pulmicort Flexhaler 90 mcg/inh inhalation powder Dose = 1 puff(s), Inhalation, BID, # 1 EA, 0 Refill(s), Pharmacy: [facility]/pharmacy #[id number], 152, cm, 08/21/21 12:20:00 EST, Height, kg, 08/21/21 12:20:00 EST, Dosing Weight Start Date: 08/21/21 Status: Ordered cefdinir 300 mg oral capsule (1 source) Cephalosporin Antibacterial Start: 08-22-2021 End: 08-29-2021 cefdinir 300 mg oral capsule Dose : 300 mg = 1 cap(s), Oral, q12h, X 7 day(s), # 14 cap(s), 0 Refill(s), 08/29/21 7:48:00 EST, Pharmacy: [facility]/pharmacy #[id number], 152, cm, 08/21/21 12:20:00 EST, Height, 80.9, kg, 08/21/21 12:20:00 EST, Dosing Weight Start Date: 08/22/21 Stop Date: 08/29/21 Status: Ordered ciprofloxacin 3 mg/ml ophthalmic solution (1 source) Quinolone Antimicrobial Start: 02-29-2024 End: 03-05-2024 ciprofloxacin 0.3% ophthalmic solution Dose = 1 drop(s), Eye, right, q4h, X 5 day(s), # 5 mL, 0 Refill(s) Start Date: 02/29/24 Stop Date: 03/05/24 Status: Ordered dexamethasone 1 mg oral tablet (5 sources) Corticosteroid Start: 12-20-2022 End: 12-24-2022 take 1 tablet by mouth once daily dexAMETHasone (Decadron) 1 MG tablet Take 1 tablet (1 mg) by mouth daily for 4 days. 4 tablet 0 12/20/2022 12/24/2022 Active ethinyl estradiol 0.035 mg / norgestimate 0.25 mg oral tablet (1 source) Progestin, Estrogen Start: 03-02-2019 take 1 tablet by mouth once daily SPRINTEC 28 0.25-35 MG-MCG per tablet TAKE 1 TABLET BY MOUTH EVERY DAY 6 03/02/2019 Active gabapentin 100 mg oral capsule (1 source) Anti-epileptic Agent Start: 02-23-2022 End: 03-25-2022 take 1 capsule by mouth once daily gabapentin (NEURONTIN) 100 MG capsule Take 1 capsule by mouth daily for 30 days. 30 capsule 1 02/23/2022 03/25/2022 Active meclizine hydrochloride 25 mg oral tablet (1 source) Antiemetic Start: 12-02-2023 End: 12-07-2023 meclizine 25 mg oral tablet Dose : 25 mg = 1 tab(s), Oral, TID, X 5 day(s), # 15 tab(s), 0 Refill(s), 12/07/23 1:11:00 AM EDT Start Date: 12/02/23 Stop Date: 12/07/23 Status: Ordered metoclopramide 5 mg oral tablet (1 source) Dopamine-2 Receptor Antagonist Start: 02-22-2024 take 1 tablet by mouth every eight hours Metoclopramide Hcl (Reglan) 5 mg tablet Active 5 mg PO EVERY 8 HOURS February 22, 2024 12:00am Multiple Vitamin (MULTIVITAMIN ADULT PO) (6 sources) take 1 tablet by mouth in the morning Multiple Vitamin (MULTIVITAMIN ADULT PO) Take 1 tablet by mouth in the morning. 0 Active PNV [id number] ORAL (1 source) End: 11-28-2021 take 1 tablet by mouth once daily PNV [id number] A ORAL Take 1 tablet by mouth once daily. 0 11/28/2021 Discontinued Comment on above: Take 1 tablet by samantha th once daily. (3 sources) Start: 11-10-2020 take 1 capsule by mouth once daily Active 1 CAP SL/PO DAILY November 10, 2020 4:52pm Start: 11-10-2020 End: 12-26-2021 Discontinued 1 NMA SL/PO DAILY November 10, 2020 12:00am December 26, 2021 3:54pm Start: 11-10-2020 End: 12-26-2021 take 1 capsule by mouth once daily Discontinued 1 CAP SL/PO DAILY November 10, 2020 12:00am December 26, 2021 3:54pm Pulmicort Flexhaler 90 mcg/inh inhalation powder (1 source) Start: 08-21-2021 take 1 dose by inhalation twice daily Pulmicort Flexhaler 90 mcg/inh inhalation powder Dose = 1 puff(s), Inhalation, BID, # 1 EA, 0 Refill(s), Pharmacy: [facility]/pharmacy #[id number], 152, cm, 08/21/21 12:20:00 EST, Height, kg, 08/21/21 12:20:00 EST, Dosing Weight Start Date: 08/21/21 Status: Ordered Completed/Discontinued Medications Medication Drug Class(es) Dates Sig (Normalized) Sig (Original) acetaminophen 325 mg oral tablet (3 sources) Start: 07-18-2019 End: 12-26-2021 take 2 tablets by mouth every six hours as needed for pain Acetaminophen 325 MG tablet Discontinued 650 mg PO EVERY 6 HOURS NEEDED as needed for Pain Or Fever July 18, 2019 1:00am December 26, 2021 3:54pm Start: 07-18-2019 End: 12-26-2021 take 650 mg by mouth every six hours as needed Acetaminophen Active 650 MG PO EVERY 6 HOURS NEEDED July 18, 2019 11:35am acetaminophen 325 mg / HYDROcodone bitartrate 5 mg oral tablet (3 sources) Opioid Agonist Start: 07-16-2019 End: 08-04-2019 Hydrocodone-Acetaminophen 5- 325 mg tablet Discontinued 1 {tbl} PO Q4H as needed for Pain Score July 16, 2019 1:00am August 04, 2019 9:42am Start: 07-16-2019 End: 08-04-2019 take 1 tablet by mouth every four hours Hydrocodone-Acetaminophen Discontinued 1 TABLET PO Q4H July 16, 2019 3:23pm August 04, 2019 9:42am aspirin 81 mg chewable tablet (2 sources) Platelet Aggregation Inhibitor, Nonsteroidal Anti-inflammatory Drug Start: 12-20-2022 End: 12-20-2022 aspirin chewable tablet 324 mg Iron (11 sources) Start: 11-28-2021 End: 04-16-2023 take 1 tablet by mouth once daily PNV [id number]-dh a 90 mg iron- 1 mg-200 mg cap Take 1 tablet by mouth once daily. 30 capsule 11 11/28/2021 04/16/2023 Discontinued Start: 11-28-2021 take 1 tablet by samantha th once daily PNV [id number]-dha 90 mg iron- 1 mg-200 mg cap Take 1 tablet by mouth once daily. 30 capsule 11 11/28/2021 Active Comment on above: Take 1 tablet by samantha th once daily. letrozole 2.5 mg oral tablet (11 sources) Aromatase Inhibitor Start: 12-07-2022 End: 04-16-2023 letrozole (FEMARA) 2.5 mg tablet Indications: Anovulation , PCOS (polycystic ovarian syndrome) Take 3 tablets by mouth once daily. On days 3-7 of menstrual cycle. 15 tablet 0 02/22/2023 04/16/2023 Discontinued Start: 10-30-2022 letrozole (FEM NISH) 2.5 mg tablet Indications: Anovulation , PCOS (polycystic ovarian syndrome) Take 3 tablets by mouth once daily. On days 3-7 of menstrual cycle. 10 tablet 0 10/30/2022 Active Start: 09-11-2022 End: 10-30-2022 letrozole (FEMARA) 2.5 mg ta blet Indications: Anovulation , PCOS (polycystic ovarian syndrome) Take 2 tablets by mouth once daily. On days 3-7 of menstrual cycle. 10 tablet 0 09/11/2022 10/30/2022 Discontinued Start: 07-24-2022 End: 09-11-2022 letrozole (FEMARA) 2.5 mg ta blet Take 1 tablet by mouth once daily. On days 3-7 of menstrual cycle. 5 tablet 0 07/24/2022 09/11/2022 Discontinued Comment on above: Take 1 tablet by samantha th once daily. On days 3-7 of menstrual cycle. Take 2 tablets by mo uth once daily. On days 3-7 of menstrual cycle. Take 3 tablets by mo uth once daily. On days 3-7 of menstrual cycle. medroxyPROGESTERone acetate 10 mg oral tablet (6 sources) Progestin Start: 2022 End: 2022 take 1 tablet by mouth once daily medroxyPROGESTERone (PROVERA) 10 mg tablet Take 1 tablet by mouth once daily. For 10 days or until menses starts. 10 tablet 2 02/22/2023 04/16/2023 Discontinued Start: 09-21-2022 take 1 tablet by samantha th once daily medroxyPROGESTERone (PROVERA) 10 mg tablet Take 1 tablet by mouth once daily. For 10 days or until menses starts. 10 tablet 2 09/21/2022 Active Comment on above: Take 1 tablet by samantha th once daily. For 10 days or until menses starts. multivit with calcium,iron,min (WOMEN'S MULTIPLE VITAMINS ORAL) (9 sources) take 1 tablet by mouth once daily multivit with calcium,iron,min (WOMEN'S MULTIPLE VITAMINS ORAL) Take 1 tablet by mouth once daily. 0 Active Comment on above: Take 1 tablet by samantha once daily. oxyCODONE hydrochloride 5 mg oral tablet (3 sources) Opioid Agonist Start: 0 End: 0 take 5-10 mg by mouth every six hours as needed for pain Oxycodone 5 MG tablet Discontinued 5 - 10 mg PO EVERY 6 HOURS NEEDED as needed for Pain Score 6-10/10 30 5 July 18, 2019 July 22, 2019 1:00am July 23, 2019 1:08am predniSONE 10 mg oral tablet (3 sources) Start: 2 End: 4 take 1 tablet by mouth twice daily Prednisone 10 mg tablet Discontinued 10 mg PO TWICE A DAY June 18, 2022 1:00am February 22, 2024 9:40pm Start: 02-21-2022 End: 02-26-2022 predniSONE 20 mg oral tablet Dose : 40 mg = 2 tab(s), Oral, qDay, X 5 day(s), # 10 tab(s), 0 Refill(s), 02/26/22 20:17:00 EDT Start Date: 02/21/22 Stop Date: 02/26/22 Status: Ordered Start: 08-21-2021 End: 08-27-2021 take 1 tablet by mouth once daily prednisone 20mg tab (TAPER) Taper 60-40-20 mg x 2 days each dose, Oral, Daily, X 6 day(s), # 12 tab(s), 0 Refill(s), 08/27/21 15:24:00 EST, Pharmacy: [facility]/pharmacy #[id number], 152, cm, 08/21/21 12:20:00 EST, Height, kg, 08/21/21 12:20:00 EST, Dosing Weight Start Date: 08/21/21 Stop Date: 08/27/21 Status: Ordered Problems Active Problems Problem Classification Problem Date Documented Da te Episodic/Chronic Abdominal pain (2 sources) Right lower quadrant pain; Translations: [Right lower quadrant pain] Onset: 12-02-2024 11-25-2024 Episodic Anxiety disorders (5 sources) Anxiety 10-14-2014 Chronic Asthma (20 sources) Exacerbation of asthma; Translations: [Unspecified asthma with (acute) exacerbation] Onset: 06-21-2020 Chronic Biliary tract disease (3 sources) Acute cholecystitis; Translations: [Acute cholecystitis] 11-11-2020 Episodic Conditions associated with dizziness or vertigo (1 source) Dizziness and giddiness; Translations: [Dizziness and giddiness] Onset: 12-02-2023 Episodic Early or threatened labor (3 sources) False labor; Translations: [False labor, unspecified] 11-11-2020 Episodic Female infertility (6 sources) Anovulation; Translations: [Female infertility associated with anovulation] Onset: 09-10-2022 Chronic Headache; including migraine (1 source) Headache; Translations: [Headache] 03-01-2024 Episodic Headache; including migraine (1 source) Headache; including migraine; Translations: [Headache, unspecified] Onset: 03-13-2024 Immunizations and screening for infectious disease (2 sources) Patient encounter status; Translations: [Encounter for screening for human papillomavirus (HPV)] Onset: 04-16-2023 04-16-2023 Episodic Inflammation; infection of eye (except that caused by tuberculosis or sexually transmitteddisease) (1 source) Conjunctivitis; Translations: [Unspecified conjunctivitis] Onset: 02-29-2024 Episodic Menstrual disorders (1 source) Irregular periods; Translations: [Irregular menstruation, unspecified] Chronic Mood disorders (5 sources) Depressive disorder 10-14-2014 Chronic Nonmalignant breast conditions (1 source) Breast lump; Translations: [Unspecified lump in the right breast, unspecified quadrant] 11-25-2024 Episodic Other connective tissue disease (2 sources) Pain in left hand; Translations: [Pain in left hand] Onset: 02-23-2022 Episodic Other connective tissue disease (2 sources) Pain in lower limb; Translations: [Pain in right leg] 12-20-2022 Episodic Other connective tissue disease (2 sources) Pain in right leg; Translations: [Pain in right leg] Onset: 12-20-2022 Episodic Other endocrine disorders (19 sources) Polycystic ovary syndrome; Translations: [Polycystic ovarian syndrome] Onset: 06-21-2020 06-21-2020 Chronic Other endocrine disorders (1 source) Polycystic ovarian syndrome; Translations: [PCOS (polycystic ovarian syndrome)] Onset: 06-21-2020 Chronic Other gastrointestinal disorders (1 source) Obstipation; Translations: [Constipation, unspecified] 11-25-2024 Episodic Other injuries and conditions due to external causes (1 source) Injury of right ankle; Translations: [Unspecified injury of right ankle, initial encounter] Onset: 12-16-2022 Episodic Other nervous system disorders (1 source) Carpal tunnel syndrome; Translations: [Carpal tunnel syndrome, unspecified upper limb] Onset: 02-21-2022 Chronic Other nervous system disorders (2 sources) Polyneuropathy, unspecified; Translations: [Polyneuropathy, unspecified] Onset: 03-09-2022 Chronic Other nervous system disorders (3 sources) H/O: Disorder; Translations: [Personal history of other diseases of the nervous system and sense organs] 12-17-2021 Episodic Other non-traumatic joint disorders (2 sources) Pain in left wrist; Translations: [Pain in left wrist] Onset: 02-23-2022 Episodic Other non-traumatic joint disorders (2 sources) Acute ankle pain; Translations: [Pain in right ankle and joints of right foot] 12-20-2022 Episodic Other non-traumatic joint disorders (2 sources) Pain in right ankle and joints of right foot; Translations: [Pain in right ankle and joints of right foot] Onset: 12-20-2022 Episodic Other and delivery including normal (6 sources) Normal ; Translations: [Encounter for supervision of normal first , unspecified trimester] 11-12-2020 Episodic Other screening for suspected conditions (not mental disorders or infectious disease) (4 sources) Abnormal electromyogram [EMG]; Translations: [Cancer cervix screening status] Onset: 03-09-2022 Episodic Other upper respiratory disease (1 source) Nasal congestion; Translations: [Nasal congestion] Episodic Other upper respiratory infections (1 source) Chronic sinusitis; Translations: [Chronic sinusitis, unspecified] Onset: 12-02-2023 Chronic Other upper respiratory infections (1 source) Upper respiratory infection; Translations: [Acute upper respiratory infection, unspecified] 06-18-2022 Episodic Pneumonia (except that caused by tuberculosis or sexually transmitted disease) (1 source) Pneumonia; Translations: [Pneumonia, unspecified organism] Onset: 08-22-2021 Episodic Residual codes; unclassified (3 sources) Gestation period, 40 weeks; Translations: [40 weeks gestation of ] 11-12-2020 Episodic Sprains and strains (6 sources) Lower back injury; Translations: [Strain of muscle, fascia and tendon of lower back, initial encounter] Episodic Viral infection (1 source) Disease caused by 2019-nCoV; Translations: [COVID-19] Episodic Past or Other Problems Problem Classification Problem Date Documented Da te Episodic/Chronic Other connective tissue disease (1 source) Foot pain; Translations: [Acute foot pain, right] Episodic Other connective tissue disease (7 sources) Plantar fasciitis; Translations: [Plantar fascial fibromatosis] Onset: 08-07-2022 08-07-2022 Episodic Other connective tissue disease (2 sources) Plantar fascial fibromatosis; Translations: [Plantar fascial fibromatosis] Onset: 08-07-2022 Episodic Unclassified (3 sources) Planned procedure; Translations: [Elective induction of labor planned] 11-12-2020 Results Test Name Value Interpretation Reference Range Facility Abdomen/Pelvis W IV Cont ONL Yon 11-25-2024 Abdomen/Pelvis W IV Cont ONLY [facility] [address] [place] [id number] Abdomen/Pelvis W IV Cont ONLY MR#: [id number] Acct: [id number] Name: DESIRE MAY Rep #: [id number] : 1995 F 29 From: Sergio Dennis MD PCP: Dr. Renata Child MD Status: [facility] ER Study: Abdomen/Pelvis W IV Cont ONLY Date of Exam: Exam# [id number] Ordering Dr: Martin Hare MD PROCEDURE: ABDOMEN/PELVIS W IV CONT ONLY 11/25/2024 REASON FOR EXAM: RIGHT LOWER QUADRANT ABDOMINAL PAIN, HISTORY OF PC TECHNIQUE: Abdomen and pelvis CT with intravenous contrast. Coronal and Sagittal reconstruction series were provided. CONTRAST: Isovue 370 VOLUME: 94 mL. One or more dose reduction techniques were used (e.g., Automated exposure control, adjustment of the mA and/or kV according to patient size, use of iterative reconstruction technique. RADIATION DOSE SUMMARY: CTDlvol: 9.97+ 12.85 mGy DLP: 716.15 mGycm COMPARISON: None. FINDINGS: Right breast 13 mm nodule. Lung bases: Clear. Liver: Normal size. No mass. Gallbladder: Surgically absent. Spleen: Normal size. Pancreas: Normal size without evidence of mass surrounding inflammation or ductal dilation. Adrenals: Normal. Kidneys: Normal renal sizes. No hydronephrosis. Bladder: Normal. Reproductive Organs: Right ovarian 3.7 cm and left ovarian 4.1 cm cysts. Bowel: Dense colonic stool. Normal caliber large and small bowel. Appendix: Normal caliber. No inflammatory change. Lymph nodes: Unremarkable. Vasculature: The abdominal aorta and IVC are normal. Peritoneum / Retroperitoneum: Normal. Bones: Unremarkable. CT/Abdomen/Pelvis W IV Cont ONLY IMPRESSION: Bilateral ovarian cysts, within the physiologic size range for the patient's age. If there is clinical concern for torsion, consider ultrasound. Normal caliber appendix. Dense colonic stool which may suggest constipation. Right breast 13 mm nodule. Correlate with mammography. Reading Location: [place] [address] CC: Dr. Renata Child MD; Dr. Martin Hare MD [employer]: Signed Normal [facility] Absolute lymphocyte countOrd ered By: ED PROVIDER on 11-25-2024 Lymphocytes Auto (Unsp spec) [#/Vol] 3.13 10*3/uL 0.83-4.51 [facility] Absolute neutrophil countOrd ered By: ED PROVIDER on 11-25-2024 Neutrophils (Bld) [#/Vol] 4.4 10*3/uL 2.0-7.7 [facility] Anion gap in Serum or Plasma Ordered By: ED PROVIDER on 11-25-2024 Anion gap [Moles/Vol] 10 mmol/L 5-15 [facility] Automated lymphocyte count a s percentage of total leukocytesOrdered By: ED PROVIDER on 11-25-2024 Lymphocytes/100 WBC Auto (Unsp spec) 37.5 % 19-41 [facility] BUN/creatinine ratioOrdered By: ED PROVIDER on 11-25-2024 Urea nitrogen/Creatinine [Mass ratio] 30.5 mg/mg High 10-20 [facility] Basophil percentageOrdered B y: ED PROVIDER on 11-25-2024 Basophils/100 WBC (Bld) 0.8 % 0-1 [facility] Bilirubin, totalOrdered By: ED PROVIDER on 11-25-2024 Bilirubin [Mass/Vol] 0.19 mg/dL 0.00-1.30 [facility] CBC W/Diff, Automatedon 05 Absolute Lymph 3.13 X10 3/uL Normal 0.83-4.51 [facility] Comment on above: Performed By: #### L 500.4050, L700.6800, L501.2450, L100.0100 #### [facility] [address] [place], [address] Absolute Neut 4.4 X10 3/uL Normal 2.0-7.7 [facility] Comment on above: Performed By: #### L 500.4050, L700.6800, L501.2450, L100.0100 #### [facility] [address] [place], [address] Basophils/100 WBC (Bld) 0.8 % Normal 0-[address] [facility] Comment on above: Performed By: #### L 500.4050, L700.6800, L501.2450, L100.0100 #### [facility] [address] [place], [address] Eosinophils/100 WBC (Bld) 3.1 % Normal 0-5 [facility] Comment on above: Performed By: #### L 500.4050, L700.6800, L501.2450, L100.0100 #### [facility] [address] [place], [address] Erythrocyte distribution width (RBC) [Ratio] 11.8 % Normal 11.6-14.6 [facility] Comment on above: Performed By: #### L 500.4050, L700.6800, L501.2450, L100.0100 #### [facility] [address] [place], [address] Hematocrit (Bld) [Volume fraction] 45.4 % Normal 37-47 [facility] Comment on above: Performed By: #### L 500.4050, L700.6800, L501.2450, L100.0100 #### [facility] [address] [place], [address] Hemoglobin (Bld) [Mass/Vol] 15.4 g/dL High 12.0-15.0 [facility] Comment on above: Performed By: #### L 500.4050, L700.6800, L501.2450, L100.0100 #### [facility] [address] [place], [address] IG% 0.200 Normal 0.0-0.9 [facility] Comment on above: Result Comment: IG% - Immature Granulocytes (promyelocytes, myelocytes and metamyelocytes) > 1% indicates that a LEFT SHIFT is Present. Performed By: #### L 500.4050, L700.6800, L501.2450, L100.0100 #### [facility] [address] [place], [address] Lymphocytes/100 WBC (Bld) 37.5 % Normal 19-41 [facility] Comment on above: Performed By: #### L 500.4050, L700.6800, L501.2450, L100.0100 #### [facility] [address] [place], [address] MCH (RBC) [Entitic mass] 28.7 pg Normal 27.0-32.0 [facility] Comment on above: Performed By: #### L 500.4050, L700.6800, L501.2450, L100.0100 #### [facility] [address] [place], [address] MCHC (RBC) [Mass/Vol] 33.9 g/dL Normal 32-36 [facility] Comment on above: Performed By: #### L 500.4050, L700.6800, L501.2450, L100.0100 #### [facility] [address] [place], [address] MCV (RBC) [Entitic vol] 84.5 fL Normal 81-99 [facility] Comment on above: Performed By: #### L 500.4050, L700.6800, L501.2450, L100.0100 #### [facility] [address] [place], [address] Monocytes/100 WBC (Bld) 6.0 % Normal 0-10 [facility] Comment on above: Performed By: #### L 500.4050, L700.6800, L501.2450, L100.0100 #### [facility] [address] [place], [address] Neutrophils/100 WBC (Bld) 52.4 % Normal 47-70 [facility] Comment on above: Performed By: #### L 500.4050, L700.6800, L501.2450, L100.0100 #### [facility] [address] [place], [address] Nucleated RBC (Bld) [#/Vol] 0 10*3/uL Normal 0-5 [facility] Comment on above: Performed By: #### L 500.4050, L700.6800, L501.2450, L100.0100 #### [facility] [address] [place], [address] Platelet mean volume (Bld) [Entitic vol] 10.7 fL Normal 6.2-12.0 [facility] Comment on above: Performed By: #### L 500.4050, L700.6800, L501.2450, L100.0100 #### [facility] [address] [place], [address] Platelets (Bld) [#/Vol] 311 10*3/uL Normal 150-450 [facility] Comment on above: Performed By: #### L 500.4050, L700.6800, L501.2450, L100.0100 #### [facility] [address] [place], [address] RBC (Bld) [#/Vol] 5.37 10*6/uL Normal 4.2-5.4 [facility] Comment on above: Performed By: #### L 500.4050, L700.6800, L501.2450, L100.0100 #### [facility] [address] [place], [address] RDW SD 35.6 fl Normal 35.1-43.9 [facility] Comment on above: Performed By: #### L 500.4050, L700.6800, L501.2450, L100.0100 #### [facility] [address] [place], [address] WBC (Bld) [#/Vol] 8.3 10*3/uL Normal 4.4-11.0 [facility] Comment on above: Performed By: #### L 500.4050, L700.6800, L501.2450, L100.0100 #### [facility] [address] [place], [address] Carbon dioxide, total [Moles /volume] in Central venous bloodOrdered By: ED PROVIDER on 11-25-2024 CO2 [Moles/Vol] 23.5 mmol/L 21.0-32.0 [facility] Chloride assayOrdered By: ED PROVIDER on 11-25-2024 Chloride [Moles/Vol] 105 mmol/L 98-108 [facility] Comprehensive Metabolic Prof ilon 11-25-2024 Albumin [Mass/Vol] 4.3 g/dL Normal 3.5-5.0 [facility] Comment on above: Performed By: #### L 500.4050, L700.6800, L501.2450, L100.0100 #### [facility] [address] [place], [address] Albumin/Globulin [Mass ratio] 1.5 {ratio} Normal 0.9-2.4 [facility] Comment on above: Performed By: #### L 500.4050, L700.6800, L501.2450, L100.0100 #### [facility] [address] [place], [address] ALK PHOS 76 U/L Normal 35-104 [facility] Comment on above: Performed By: #### L 500.4050, L700.6800, L501.2450, L100.0100 #### [facility] [address] [place], [address] ALT [Catalytic activity/Vol] 13 U/L Normal <=34 [facility] Comment on above: Performed By: #### L 500.4050, L700.6800, L501.2450, L100.0100 #### [facility] [address] [place], [address] AST [Catalytic activity/Vol] 16 U/L Normal <=31 [facility] Comment on above: Performed By: #### L 500.4050, L700.6800, L501.2450, L100.0100 #### [facility] [address] [place], [address] Bilirubin [Mass/Vol] 0.19 mg/dL Normal 0.00-1.30 [facility] Comment on above: Performed By: #### L 500.4050, L700.6800, L501.2450, L100.0100 #### [facility] [address] [place], [address] BUN/CRE 30.5 RATIO High 10-20 [facility] Comment on above: Performed By: #### L 500.4050, L700.6800, L501.2450, L100.0100 #### [facility] [address] [place], [address] Calcium [Mass/Vol] 9.2 mg/dL Normal 7.6-11.0 [facility] Comment on above: Performed By: #### L 500.4050, L700.6800, L501.2450, L100.0100 #### [facility] [address] [place], [address] Chloride [Moles/Vol] 105 mmol/L Normal 98-108 [facility] Comment on above: Performed By: #### L 500.4050, L700.6800, L501.2450, L100.0100 #### [facility] [address] [place], [address] CO2 [Moles/Vol] 23.5 mmol/L Normal 21.0-32.0 [facility] Comment on above: Performed By: #### L 500.4050, L700.6800, L501.2450, L100.0100 #### [facility] [address] [place], [address] Creatinine [Mass/Vol] 0.71 mg/dL Normal 0.70-1.20 [facility] Comment on above: Performed By: #### L 500.4050, L700.6800, L501.2450, L100.0100 #### [facility] [address] [place], [address] ECRCL 106.18 ml/min Normal 50-250 [facility] Comment on above: Performed By: #### L 500.4050, L700.6800, L501.2450, L100.0100 #### [facility] [address] [place], [address] GAP 10 Normal 5-15 [facility] Comment on above: Performed By: #### L 500.4050, L700.6800, L501.2450, L100.0100 #### [facility] [address] [place], [address] GFR/1.73 sq M.predicted among non-blacks MDRD (S/P/Bld) [Vol rate/Area] 118 mL/min/{1.73_m2} Normal >60 [facility] Comment on above: Result Comment: mL/m in/1.73m2 CKD-EPI Creatinine Equation (2020) Performed By: #### L 500.4050, L700.6800, L501.2450, L100.0100 #### [facility] [address] [place], [address] Globulin (S) [Mass/Vol] 2.8 g/dL Normal 2.2-4.[address] [facility] Comment on above: Performed By: #### L 500.4050, L700.6800, L501.2450, L100.0100 #### [facility] [address] [place], [address] Glucose [Mass/Vol] 104 mg/dL High 70-99 [facility] Comment on above: Performed By: #### L 500.4050, L700.6800, L501.2450, L100.0100 #### [facility] [address] [place], [address] Potassium [Moles/Vol] 4.0 mmol/L Normal 3.3-5.1 [facility] Comment on above: Performed By: #### L 500.4050, L700.6800, L501.2450, L100.0100 #### [facility] [address] [place], [address] Sodium [Moles/Vol] 138 mmol/L Normal 133-145 [facility] Comment on above: Performed By: #### L 500.4050, L700.6800, L501.2450, L100.0100 #### [facility] [address] [place], [address] T PROT 7.1 g/dL Normal 5.9-8.4 [facility] Comment on above: Performed By: #### L 500.4050, L700.6800, L501.2450, L100.0100 #### [facility] [address] [place], [address] Urea nitrogen [Mass/Vol] 22 mg/dL High 4-19 [facility] Comment on above: Performed By: #### L 500.4050, L700.6800, L501.2450, L100.0100 #### [facility] [address] [place], [address] Emergency Department Summary on 11-25-2024 Emergency Department Summary [facility] Medical Records Department [address] [place] [address] Emergency Department Summary 11/25/24 MR#: [id number] Acct: [id number] Name: DESIRE MAY Rep #: [id number] : 1995 29 From: Martin Hare MD PCP: Dr. Renata Child MD Status:REG ER Location: ED HPI History of Present Illness Chief Complaint: Abd Pain Detail of Chief Complaint: Acute abrupt right lower quadrant abdominal pain Informant: patient Onset/Context/Timing Onset: Today and Hours Context: Sudden Onset Timing: Continuous and Waxes and wanes Quality: Pain Location: Right lower quadrant Current Severity: Mild Maximum Severity: Severe Worsened by: Lying on right side Relieved by: Markedly better patient sits on her left hip Associated Symptoms Associated Symptoms: Initially had nausea Narrative Narrative: Patient is a 29-year-old G1, P1 female who presents with abrupt onset of right lower quadrant abdominal pain. Patient denies fever, chills night sweats. She does endorse nausea without vomiting or diarrhea. She denies dysuria, frequency, urgency or hematuria. Patient has irregular periods due to polycystic ovarian syndrome. Patient denies shoulder pain. Patient denies orthostatic symptoms. There is no history of trauma. She denies anorexia. Prior similar symptoms: No Recent Illness/Hospitalizatio n: No PFSH PFSH Medical History Bipolar disorder Anxiety Depression Smoker Migraines URI (upper respiratory infection) Polycystic ovarian syndrome Acute cholecystitis Asthma Nausea vomiting Diarrhea Abdominal pain Acute cholecystitis Home Medications ???Medication ???Instructions ???Recorded ???Last Taken ???Type albuterol sulfate 90 mcg/actuation 1 - 2 puff inhalation Q6H PRN ME N 09/09/19 1 Month Ago History aerosol inhaler Asthma 10/12/20 metoclopramide HCl 5 mg tablet 5 mg PO Q8 #10 tabs 02/22/24 Unkno wn Rx (Reglan) Allergy/AdvReac Type Severity Reaction Status Date / Time guaifenesin (From Robitussin) Allergy Intermediate elevated Verified 11/25/24 19:49 heart rate Family History Grandmother Asthma Aunt Diabetes Uncle Diabetes Grandfather Diabetes Mother Hypertension Surgical History History of cholecystectomy History of surgery S/P laparoscopic cholecystectomy Social History Smoking Status: Current some day smoker tobacco type: e-cigarettes alcohol intake: current alcohol intake frequency: a few times a month substance use type: does not use ROS ROS ED Constitutional Constitutional ED: Denies chills, fever(s), subjective, sweats or weight loss Cardiovascular Cardiovascular: Denies chest pain or palpitations Respiratory/Chest Respiratory/Chest: Denies cough, dyspnea or dyspnea on exertion Gastrointestinal Gastrointestinal: Reports abdominal pain and nausea; Denies constipation, diarrhea, melena or vomiting Genitourinary Genitourinary ED: Denies dysuria, hematuria or urinary frequency Musculoskeletal Musculoskeletal: Denies arthralgias, back pain, myalgias or neck pain Integumentary Denies rash Neurologic Neurologic: Denies headache(s) or paresthesias Psychiatric Psychiatric: Denies depression Hematologic/Lymphatic Hematologic/Lymphatic: Reports systems reviewed and no addt'l complaints, except as documented EXAM Physical Exam Const Vital Signs: 11/25/24 19:49 11/25/24 21:48 Temperature 97.8 F Temperature Source Temporal Pulse Rate 89 80 Respiratory Rate 16 18 Blood Pressure 134/89 H 120/87 H Blood Pressure Mean 104 98 Pulse Ox 98 98 Oxygen Delivery Method Room Air Positive well nourished and well developed Constitutional Narrative: Patient appears slightly uncomfortable. She is leaning on the her left side that she is reading a book. General Appearance ED: well developed; Negative for cyanotic, diaphoretic or pallor HEENT Reports moist mucous membranes HEENT Narrative: Head is atraumatic normocephalic. Ears normal. Nares patent. Patient does have piercings. Eyes PERRL and EOMs intact bilaterally General Eye ED: Negative for pale conjunctiva or scleral icterus Neck no lymphadenopathy, supple and no JVD Chest Wall inspection of chest normal and palpation of chest normal Resp normal respiratory effort and clear to auscultation bilaterally Cardio regular rate, regular rhythm, S1 normal heart sound, S2 normal heart sound and no murmurs GI normal to inspection, nondistended, normoactive bowel sounds, non-distended and no masses; Negative for non-tender or hepatosplenomegaly Auscultation: hypoactive bowel sounds Pal (more content not included)... Normal [facility] Eosinophil percentageOrdered By: ED PROVIDER on 11-25-2024 Eosinophils/100 WBC (Bld) 3.1 % 0-5 [facility] Erythrocyte distribution wid th ratioOrdered By: ED PROVIDER on 11-25-2024 Erythrocyte distribution width (RBC) [Ratio] 11.8 % 11.6-14.6 [facility] Erythrocyte distribution wid th standard deviationOrdered By: ED PROVIDER on 11-25-2024 Erythrocyte distribution width (RBC) [Ratio] 35.6 fl 35.1-43.9 [facility] Glomerular filtration rate ( GFR) estimation/1.73 sq m using serum, plasma, or whole bOrdered By: ED PROVIDER on 11-25-2024 GFR/1.73 sq M.predicted among non-blacks MDRD (S/P/Bld) [Vol rate/Area] 118 mL/min/{1.73_m2} >60 [facility] Comment on above: mL/min/1.73m2 CKD-EP I Creatinine Equation (2020) Hematocrit Auto (Bld) [Volum e fraction]Ordered By: ED PROVIDER on 11-25-2024 Hematocrit (Bld) [Volume fraction] 45.4 % 37-47 [facility] Hemoglobin measurementOrdere d By: ED PROVIDER on 11-25-2024 Hemoglobin (Bld) [Mass/Vol] 15.4 g/dL High 12.0-15.0 [facility] Immature granulocytes/100 WB C Auto (Bld)Ordered By: ED PROVIDER on 11-25-2024 Immature granulocytes/100 WBC (Bld) 0.200 % 0.0-0.9 [facility] Comment on above: IG% - Immature Granu locytes (promyelocytes, myelocytes and metamyelocytes) > 1% indicates that a LEFT SHIFT is Present. Laboratory - Chemistry and C hemistry - challengeOrdered By: ED PROVIDER on 11-25-2024 AST [Catalytic activity/Vol] 16 U/L <32 [facility] Lipaseon 11-25-2024 Lipase [Catalytic activity/Vol] 27 U/L Normal 13-75 [facility] Comment on above: Result Comment: Pleernesto yarbrough note: LIPASE revised reference range effective 22. New Lipase methodology. Expected to produce lower values than the previous assay method. NEW Reference Range: 13 - 75 U/L Performed By: #### L 500.4050, L700.6800, L501.2450, L100.0100 #### [facility] [address] [place], [address] Lipase measurementOrdered By : ED PROVIDER on 11-25-2024 Lipase [Catalytic activity/Vol] 27 U/L 13-75 [facility] Comment on above: Please note:LIPASE r evised reference range effective 22. New Lipase methodology. Expected to produce lower values than the previous assay method. NEW Reference Range: 13 - 75 U/L MCV (mean corpuscular volume ) determinationOrdered By: ED PROVIDER on 11-25-2024 MCV (RBC) [Entitic vol] 84.5 fL 81-99 [facility] Mean corpuscular hemoglobin (MCH) determinationOrdered By: ED PROVIDER on 11-25-2024 MCH (RBC) [Entitic mass] 28.7 pg 27.0-32.0 [facility] Mean corpuscular hemoglobin concentration (MCHC) determinationOrdered By: ED PROVIDER on 11-25-2024 MCHC (RBC) [Mass/Vol] 33.9 g/dL 32-36 [facility] Mean platelet volume determi nationOrdered By: ED PROVIDER on 11-25-2024 Platelet mean volume (Bld) [Entitic vol] 10.7 fL 6.2-12.0 [facility] Monocyte percentageOrdered B y: ED PROVIDER on 11-25-2024 Monocytes/100 WBC (Bld) 6.0 % 0-10 [facility] Neutrophil percentageOrdered By: ED PROVIDER on 11-25-2024 Neutrophils/100 WBC (Bld) 52.4 % 47-70 [facility] Nucleated red blood cell per centageOrdered By: ED PROVIDER on 11-25-2024 Nucleated RBC/100 WBC (Bld) [Ratio] 0 % 0-5 [facility] Platelet countOrdered By: ED PROVIDER on 11-25-2024 Platelets (Bld) [#/Vol] 311 10*3/uL 150-450 [facility] Potassium measurement (mass/ volume)Ordered By: ED PROVIDER on 11-25-2024 Potassium (Unsp spec) [Mass/Vol] 4.0 mmol/L 3.3-5.1 [facility] ,Serum,hCG Quali.on 11-25-2024 HCG, SERUM QUAL Negative Normal [facility] Comment on above: Performed By: #### L 500.4050, L700.6800, L501.2450, L100.0100 #### [facility] [address] [place], [address] RBC Auto (Bld) [#/Vol]Ordere d By: ED PROVIDER on 11-25-2024 RBC (Bld) [#/Vol] 5.37 10*6/uL 4.2-5.4 [facility] Serum beta-hCG test, qualita tiveOrdered By: ED PROVIDER on 11-25-2024 Beta HCG ( test) Ql Negative [facility] Serum creatinine measurement (mass/volume)Ordered By: ED PROVIDER on 11-25-2024 Creatinine [Mass/Vol] 0.71 mg/dL 0.70-1.20 [facility] Serum globulin measurementOr dered By: ED PROVIDER on 11-25-2024 Globulin (S) [Mass/Vol] 2.8 g/dL 2.2-4.2 [facility] Serum glucose measurement (m ass/volume)Ordered By: ED PROVIDER on 11-25-2024 Glucose [Mass/Vol] 104 mg/dL High 70-99 [facility] Serum or plasma alanine tinsley otransferase (ALT) measurementOrdered By: ED PROVIDER on 11-25-2024 ALT [Catalytic activity/Vol] 13 U/L <35 [facility] Serum or plasma albumin mily urement (mass/volume)Ordered By: ED PROVIDER on 11-25-2024 Albumin [Mass/Vol] 4.3 g/dL 3.5-5.0 [facility] Serum or plasma albumin/glob ulin mass ratioOrdered By: ED PROVIDER on 11-25-2024 Albumin/Globulin [Mass ratio] 1.5 {ratio} 0.9-2.4 [facility] Serum or plasma alkaline wanda sphatase measurementOrdered By: ED PROVIDER on 11-25-2024 ALP [Catalytic activity/Vol] 76 U/L 35-104 [facility] Serum or plasma calcium mily urement (mass/volume)Ordered By: ED PROVIDER on 11-25-2024 Calcium [Mass/Vol] 9.2 mg/dL 7.6-11.0 [facility] Serum or plasma urea nitroge n measurement (mass/volume)Ordered By: ED PROVIDER on 11-25-2024 Urea nitrogen [Mass/Vol] 22 mg/dL High 4-19 [facility] Sodium levelOrdered By: SERGEY EDWARDS on 11-25-2024 Sodium [Moles/Vol] 138 mmol/L 133-145 [facility] Total proteinOrdered By: ED PROVIDER on 11-25-2024 Protein [Mass/Vol] 7.1 g/dL 5.9-8.4 [facility] White blood cell (WBC) count Ordered By: ED PROVIDER on 11-25-2024 WBC (Bld) [#/Vol] 8.3 10*3/uL 4.4-11.0 [facility] Emergency Department Summary on 02-22-2024 Emergency Department Summary [facility] Medical Records Department [address] [place] [address] Emergency Department Summary 02/22/24 MR#: [id number] Acct: [id number] Name: DESIRE MAY Rep #: [id number] : 1995 28 From: Derick Avila DO PCP: Dr. Renata Child MD Status:DEP ER Location: ED HPI History of Present Illness Chief Complaint: Headache PFSH PFSH Medical History (Updated 02/22/24 @ 22:[address] Derick Avila DO) Bipolar disorder Anxiety Depression Smoker Migraines URI (upper respiratory infection) Polycystic ovarian syndrome Acute cholecystitis Asthma Nausea vomiting Diarrhea Abdominal pain Acute cholecystitis Home Medications ???Medication ???Instructions ???Recorded ???Last Taken ???Type albuterol sulfate 90 mcg/actuation 1 - 2 puff inhalation Q6H PRN PRN 09/09/19 1 Month Ago History aerosol inhaler Asthma 10/12/20 metoclopramide HCl 5 mg tablet 5 mg PO Q8 #10 tabs 02/22/24 Unknown Rx (Reglan) Allergy/AdvReac Type Severity Reaction Status Date / Time guaifenesin (From Robitussin) Allergy Intermediate elevated Verified 02/22/24 20:57 heart rate Family History Grandmother Asthma Aunt Diabetes Uncle Diabetes Grandfather Diabetes Mother Hypertension Surgical History (Updated 02/22/24 @ 21:38 by Jeanine Cheatham) History of cholecystectomy History of surgery S/P laparoscopic cholecystectomy Social History Smoking Status: Current some day smoker tobacco type: e-cigarettes alcohol intake: current alcohol intake frequency: a few times a month substance use type: does not use EXAM Physical Exam Const Vital Signs: 02/22/24 20:57 02/22/24 22:56 Temperature 97.6 F L 98.2 F Temperature Source Temporal Pulse Rate 82 63 Respiratory Rate 17 15 Blood Pressure 129/86 H 100/66 Blood Pressure Mean 100 77 Pulse Ox 100 99 Oxygen Delivery Method Room Air [facility] Narrative Medical decision making narrative: HISTORY OF PRESENT ILLNESS: 28year old female presents with headache. States headache started 2 days ago. She notes [id number] medicines have not helped. She denies any head trauma or vomiting. Denies any fever or neck stiffness. Denies any recent congregate settings. Patient denies sudden onset or thunderclap headache, denies maximal intensity within 1 minute, vomiting, neck pain or stiffness, changes in vision, fever, history malignancy, syncope, seizures. REVIEW OF SYSTEMS: All other systems reviewed and are negative except as noted in the history of present illness. At least 10 review of systems reviewed and are negative except as noted in history of present illness. PHYSICAL EXAM: Nursing triage notes reviewed, Vital signs reviewed Constitutional: please see mdm HENT: MMM Eyes: Pupils equal round and reactive to light, Extraocular muscles intact Neck: No stridor, no JVD, full neck ROM Lungs: Clear to auscultation, No wheezing or rales. No increased work of breathing, no conversational dyspnea, no accessory muscle use, no nasal flaring. No respiratory distress noted Heart: Regular rate and rhythm, No murmurs, No rubs and No gallops, 2+ distal pulses (radial, femoral, posterior tibial) in all extremities Abdomen: Soft, there is no tenderness, rigidity, rebound or guarding, no obvious peritoneal signs, no palpable pulsatile abdominal masses, no auscultated abdominal bruit : No CVAT Extremities: No edema Neuro: Alert and oriented x3, neuro exam at baseline, cranial nerves II through XII are intact. No pain with extraocular muscle movement. There is negative test of skew. Normal speech. 5 of 5 strength in upper and lower extremities in flexion extension. Intact sensation to light touch in upper and lower extremity dermatomes. No truncal or extremity ataxia. No dysdiadochokinesia. Normal gait. 2+ reflexes. No meningeal signs. Negative Babinski. NIH of 0 Skin: No rash or lesions noted MEDICAL DECISION MAKING: Chief Complaint: Headache History obtained from others: none Consults: none ALL IMAGES (IF OBTAINED) HAVE BEEN PERSONALLY REVIEWED AND INTERPRETED BY MYSELF. [facility] Narrative: The patient was hemodynamically stable, afebrile and nontoxic-appearing. Neurologic exam without focal deficits. I considered the following differential diagnosis: Subarachnoid hemorrhage, epidural hematoma, ICH, meningitis, carotid artery dissection, primary headache (primary headache, migraine, tension headache, cluster headache) The patient looks great and is in no significant objective discomfort currently. The patient's headache is non-specific. Exam is unremarkable. Even still I wanted to rule out ICH, mass so I offered patient CT scan of (more content not included)... Normal [facility] .GFRon 12-02-2023 GFR 93 ml/min/1.73sqm Normal [facility] ([place]) Comment on above: Result Comment: GFR Population mean for , Non- Americans Ages 20-29 = 116 mL/min/1.73 sq.m. Ages 30-39 = 107 mL/min/1.73 sq.m. Ages 40-49 = 99 mL/min/1.73 sq.m. Ages 50-59 = 93 mL/min/1.73 sq.m. Ages 60-69 = 85 mL/min/1.73 sq.m. Ages 70+ = 75 mL/min/1.73 sq.m. Chronic Kidney Disease: Less than 60 mL/min/1.73 square meters End Stage Renal Disease: Less than 15 mL/min/1.73 square meters Performed By: #### B MP, GFR, MDW, CBC, ADIFF, ANEU, TROPHS #### [address] [address] GFR Non- 77 ml/min/1.73sqm Normal [facility] ([place]) Comment on above: Result Comment: GFR Population mean for , Non- Americans Ages 20-29 = 116 mL/min/1.73 sq.m. Ages 30-39 = 107 mL/min/1.73 sq.m. Ages 40-49 = 99 mL/min/1.73 sq.m. Ages 50-59 = 93 mL/min/1.73 sq.m. Ages 60-69 = 85 mL/min/1.73 sq.m. Ages 70+ = 75 mL/min/1.73 sq.m. Chronic Kidney Disease: Less than 60 mL/min/1.73 square meters End Stage Renal Disease: Less than 15 mL/min/1.73 square meters Performed By: #### B MP, GFR, MDW, CBC, ADIFF, ANEU, TROPHS #### [address] [address] .Urinalysis Microscopic (AO) on 12-02-2023 UA Amorphus 1+ /hpf Normal [facility] ([place]) Comment on above: Performed By: #### B MP, GFR, MDW, CBC, ADIFF, ANEU, TROPHS #### [address] [address] UA CA Ox Crystal 1+ /hpf Normal [facility] ([place]) Comment on above: Performed By: #### B MP, GFR, MDW, CBC, ADIFF, ANEU, TROPHS #### [address] [address] UA RBC None Seen Normal None Seen [facility] [facility] ([place]) Comment on above: Performed By: #### B MP, GFR, MDW, CBC, ADIFF, ANEU, TROPHS #### [address] [address] UA Squam Epithelial 0-5 Abnormal None Seen [facility] ([place]) Comment on above: Performed By: #### B MP, GFR, MDW, CBC, ADIFF, ANEU, TROPHS #### [address] [address] UA WBC 0-5 Abnormal None Seen [facility] ([place]) Comment on above: Performed By: #### B MP, GFR, MDW, CBC, ADIFF, ANEU, TROPHS #### [address] [address] BMPon 12-02-2023 BUN/Creatinine Ratio 26 ratio Normal 7-27 [facility] ([place]) Comment on above: Performed By: #### B MP, GFR, MDW, CBC, ADIFF, ANEU, TROPHS #### [address] [address] Calcium [Mass/Vol] 8.7 mg/dL Normal 8.4-10.2 [facility] ([place]) Comment on above: Performed By: #### B MP, GFR, MDW, CBC, ADIFF, ANEU, TROPHS #### [address] [address] Chloride [Moles/Vol] 103 mmol/L Normal 98-107 [facility] ([place] Comment on above: Performed By: #### B MP, GFR, MDW, CBC, ADIFF, ANEU, TROPHS #### [place] [address] CO2 [Moles/Vol] 26 mmol/L Normal 22-29 [facility] ([place] Comment on above: Performed By: #### B MP, GFR, MDW, CBC, ADIFF, ANEU, TROPHS #### [place] [address] Creatinine [Mass/Vol] 0.88 mg/dL Normal 0.55-1.02 [facility] ([place]) Comment on above: Performed By: #### B MP, GFR, MDW, CBC, ADIFF, ANEU, TROPHS #### [place] [address] Electrolyte Balance 10.0 mEq/L Normal 4.0-15.0 [facility] ([place]) Comment on above: Performed By: #### B MP, GFR, MDW, CBC, ADIFF, ANEU, TROPHS #### [address] [address] Glucose [Mass/Vol] 96 mg/dL Normal 70-105 [facility] ([place] Comment on above: Performed By: #### B MP, GFR, MDW, CBC, ADIFF, ANEU, TROPHS #### [place] [address] Potassium [Moles/Vol] 3.5 mmol/L Normal 3.5-5.1 [facility] ([place] Comment on above: Performed By: #### B MP, GFR, MDW, CBC, ADIFF, ANEU, TROPHS #### [place] [id number] Sodium [Moles/Vol] 139 mmol/L Normal 136-145 [facility] ([place] Comment on above: Performed By: #### B JACOB, MELISSA, W, CBC, ADIFF, ANEU, TROPHS #### [facility] [address], [place] [address] Urea nitrogen [Mass/Vol] 23 mg/dL High 7-18 [facility] ([place]) Comment on above: Performed By: #### B MP, GFR, MDW, CBC, ADIFF, ANEU, TROPHS #### [place] [address] [place], [place] [address] CT HEAD OR BRAIN W/O CONTRAS Ton 12-02-2023 CT HEAD OR BRAIN W/O CONTRAST ORIGINAL EXAMINATION: CT OF THE HEAD WITHOUT CONTRAST12/02/2023 12:33 am TECHNIQUE: CT of the head was performed without the administration of intravenous contrast. Automated exposure control, iterative reconstruction, and/or weight based adjustment of the mA/kV was utilized to reduce the radiation dose to as low as reasonably achievable. COMPARISON: None. HISTORY: ORDERING SYSTEM PROVIDED HISTORY: Reason for Exam: dizzy spells with headache for several weeks. some left arm numbness as well dizziness, numbness, SCHMIDT FINDINGS: There is no intracranial hemorrhage, mass, mass effect or abnormal extra-axial fluid collection. No CT evidence for acute infarction. The ventricles are normal. 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 The skull base and calvarium demonstrate no abnormality. Mild mucosal thickening of the paranasal sinuses, with a small amount of aerated secretions. The left frontal sinus appears under developed. The mastoid air cells are clear. Multiple, small subcentimeter lymph nodes suspected in the soft tissues along the posterior base the skull. IMPRESSION: No acute intracranial abnormalities. Findings suggestive of mild acute sinusitis in the appropriate clinical setting. Additional incidental findings as above. I have personally reviewed the images of this examination and agree with the resident's findings and interpretation. Interpreted by: Farhat Choe Preliminary Report By: Ashley Hernandez Electronically signed By Farhat Choe Dictated Date: 12/02/2023 12:39:47 AM Prelim Date: 12/02/2023 12:54:02 AM Sign Date: 12/02/2023 12:54:37 AM Ordering Provider: ELIE RODARTE Normal [facility] ([place]) PREGUon 12-02-2023 HCG ( test) Ql (U) Negative Normal [facility] ([place]) Comment on above: Performed By: #### P REGU, UA, UAMICAO #### [address] [address] test (u) int Not detected Invalid Interpretation Code [facility] ([place] Comment on above: Performed By: #### P REGU, UA, UAMICAO #### [place] [id number] TROPHSon 12-02-2023 High Sensitivity Troponin I <4 Normal 0-51 [facility] ([place]) Comment on above: Result Comment: High Sensitive Troponin I Reference Ranges: Female: 0-51 ng/L Male: 0-76 ng/L Testing performed on [employer] using a homogeneous sandwich chemiluminescent immunoassay based on [employer] technology. Performed By: #### B MP, GFR, MDW, CBC, ADIFF, ANEU, TROPHS #### [place] [id number] UAon 12-02-2023 Color (U) Yellow Normal [facility] ([place] Comment on above: Performed By: #### P REGU, UA, UAMICAO #### [address] [address] Glucose (U) [Mass/Vol] Negative Normal Negative [facility] ([place]) Comment on above: Performed By: #### P REGU, UA, UAMICAO #### [address] [address] Ketones Ql (U) Negative Normal Negative [facility] ([place] Comment on above: Performed By: #### P REGU, UA, UAMICAO #### [address] [address] UA Appear Clear Normal Clear [facility] ([place] Comment on above: Performed By: #### P REGU, UA, UAMICAO #### [address] [address] UA Blood Negative Normal Negative [facility] ([place] Comment on above: Performed By: #### P REGU, UA, UAMICAO #### [place] [address] UA Leuk Est Trace Abnormal Negative [facility] ([place] Comment on above: Performed By: #### P REGU, UA, UAMICAO #### [place] [address] UA Nitrite Negative Normal Negative [facility] ([place] Comment on above: Performed By: #### P REGU, UA, UAMICAO #### [place] [address] UA pH 6.0 Normal 5.0 - 8.0 [facility] ([place] Comment on above: Performed By: #### P REGU, UA, UAMICAO #### [place] [address] UA Protein Negative Normal Negative [facility] ([place] Comment on above: Performed By: #### P REGU, UA, UAMICAO #### [place] [address] UA Spec Grav >=1.030 Abnormal 1.015-1.025 [facility] ([place]) Comment on above: Performed By: #### P REGU, UA, UAMICAO #### [place] [address] UA Specimen Type Clean Catch Normal [facility] ([place] Comment on above: Performed By: #### P REGU, UA, UAMICAO #### [place] [address] UA Urobilinogen 0.2 E.U./dL Normal 0.2-1.0 [facility] ([place] Comment on above: Performed By: #### P REGU, UA, UAMICAO #### [place] [address] Urobilinogen (U) [Mass/Vol] Negative Normal Negative [facility] ([place] Comment on above: Performed By: #### P REGU, UA, UAMICAO #### [address] [address] XR CHEST 1 VIEWon 12-02-2023 XR CHEST 1 VIEW ORIGINAL EXAMINATION: ONE XRAY VIEW OF THE CHEST COMPARISON: 08/21/2021 HISTORY: ORDERING SYSTEM PROVIDED HISTORY: Reason for Exam: chest pain Dizzy spells FINDINGS: The cardiomediastinal silhouette is unremarkable. No pleural effusions, pneumothoraces, or focal consolidations appreciated. Hazy appearance of the bilateral mid to lower lungs which appear symmetric and are favored to represent artifact from overlying breast tissue. No acute osseous abnormalities. IMPRESSION: No acute cardiopulmonary process. I have personally reviewed the images of this examination, and agree with the resident's findings and interpretation. Interpreted by: Jan Steinberg MD Preliminary Report By: Ashley Hernandez Electronically signed By Jan Steinberg MD Dictated Date: 12/02/2023 12:35:51 AM Prelim Date: 12/02/2023 12:39:33 AM Sign Date: 12/02/2023 12:43:34 AM Ordering Provider: ELIE RODARTE [facility] ([place]) .Auto Diffon 12-01-2023 Basophil, Absolute 0.1 10 3/mcL Normal 0.0-0.2 [facility]) Comment on above: Performed By: #### B MP, GFR, MDW, CBC, ADIFF, ANEU, TROPHS #### [address] [address] Basophils/100 WBC (Bld) 1.1 % Normal 0.0-2.5 [facility] ([place]) Comment on above: Performed By: #### B MP, GFR, MDW, CBC, ADIFF, ANEU, TROPHS #### [address] [address] Eosinophil, Absolute 0.3 10 3/mcL Normal 0.0-0.4 [facility] ([place]) Comment on above: Performed By: #### B MP, GFR, MDW, CBC, ADIFF, ANEU, TROPHS #### [address] [address] Eosinophils/100 WBC (Bld) 3.3 % Normal 0.0-7.0 [facility] ([place]) Comment on above: Performed By: #### B MP, GFR, MDW, CBC, ADIFF, ANEU, TROPHS #### [address] [address] Lymphocyte, Absolute 3.4 10 3/mcL Normal 0.8-3.9 [facility] ([place]) Comment on above: Performed By: #### B MP, GFR, MDW, CBC, ADIFF, ANEU, TROPHS #### [address] [address] Lymphocytes/100 WBC (Bld) 35.1 % Normal 10.0-50.0 [facility] ([place]) Comment on above: Performed By: #### B MP, GFR, MDW, CBC, ADIFF, ANEU, TROPHS #### [address] [address] Monocyte, Absolute 0.9 10 3/mcL Normal 0.2-1.0 [facility] ([place] Comment on above: Performed By: #### B MP, GFR, MDW, CBC, ADIFF, ANEU, TROPHS #### [address] [address] Monocytes/100 WBC (Bld) 9.0 % Normal 1.7-13.0 [facility] ([place]) Comment on above: Performed By: #### B MP, GFR, MDW, CBC, ADIFF, ANEU, TROPHS #### [address] [address] Neutrophils/100 WBC (Bld) 51.5 % Normal 37.0-80.0 [facility] ([place]) Comment on above: Performed By: #### B MP, GFR, MDW, CBC, ADIFF, ANEU, TROPHS #### [address] [address] .RUTon 12-01-2023 Monocyte Distribution Width 17.15 Normal 0.00-20.00 [facility] ([place]) Comment on above: Result Comment: For ED adult patients suspected of sepsis, MDW<=20.0 does not rule out sepsis or risk of sepsis Performed By: #### B MP, GFR, MDW, CBC, ADIFF, ANEU, TROPHS #### [place] [address] .NEUABSon 12-01-2023 Neutrophil, Absolute 5.0 10 3/mcL Normal 2.9-6.2 [facility] ([place] Comment on above: Performed By: #### B MP, GFR, MDW, CBC, ADIFF, ANEU, TROPHS #### [place] [address] CBCon 12-01-2023 Erythrocyte distribution width (RBC) [Ratio] 14.2 % Normal 11.5-14.5 [facility] ([place]) Comment on above: Performed By: #### B MP, GFR, MDW, CBC, ADIFF, ANEU, TROPHS #### [place] [address] Hematocrit (Bld) [Volume fraction] 41.6 % Normal 37.0-47.0 [facility] ([place] Comment on above: Performed By: #### B MP, GFR, MDW, CBC, ADIFF, ANEU, TROPHS #### [place] [address] Hgb 14.4 G/dL Normal 12.0-16.0 [facility] ([place] Comment on above: Performed By: #### B MP, GFR, MDW, CBC, ADIFF, ANEU, TROPHS #### [place] [address] MCH (RBC) [Entitic mass] 29.0 pg Normal 27.0-31.2 [facility] ([place] Comment on above: Performed By: #### B MP, GFR, MDW, CBC, ADIFF, ANEU, TROPHS #### [place] [address] MCHC 34.6 G/dL Normal 33.0-37.0 [facility] ([place] Comment on above: Performed By: #### B MP, GFR, MDW, CBC, ADIFF, ANEU, TROPHS #### [address] [address] MCV (RBC) [Entitic vol] 84.0 fL Normal 80.0-94.0 [facility] ([place]) Comment on above: Performed By: #### B MP, GFR, MDW, CBC, ADIFF, ANEU, TROPHS #### [place] [id number] Platelet 268 10 3/mcL Normal 130-400 [facility] ([place]) Comment on above: Performed By: #### B MP, GFR, MDW, CBC, ADIFF, ANEU, TROPHS #### [place] [address] Platelet mean volume (Bld) [Entitic vol] 8.4 fL Normal 7.4-10.4 [facility] ([place] Comment on above: Performed By: #### B MP, GFR, MDW, CBC, ADIFF, ANEU, TROPHS #### [place] [id number] RBC 4.96 10 6/mcL Normal 4.20-5.40 [facility] ([place] Comment on above: Performed By: #### B MP, GFR, MDW, CBC, ADIFF, ANEU, TROPHS #### [place] [id number] WBC 9.7 10 3/mcL Normal 4.6-10.8 [facility] ([place]) Comment on above: Performed By: #### B MP, GFR, MDW, CBC, ADIFF, ANEU, TROPHS #### [address] [address] LABORATORYOrdered By: Shanae Lopez on 12-01-2023 Appearance (U) Clear (12/01/23 11:50 PM) Normal Clear AO Auto Urine SS Bilirubin Ql (U) Negative (12/01/23 11:50 PM) Normal Negative AO Auto Urine SS Calcium oxalate crystals LM.HPF (Urine sed) [#/Area] 1 /[HPF] Normal AO Auto Urine SS Color (U) Yellow (12/01/23 11:50 PM) Normal AO Auto Urine SS Crystals.amorphous LM.HPF (Urine sed) [#/Area] 1 /[HPF] Normal AO Auto Urine SS Glucose Test strip (U) [Mass/Vol] Negative Normal Negative AO Auto Urine SS HCG ( test) Ql Negative (12/01/23 11:50 PM) Normal AO Manual Urine SS Hemoglobin Auto test strip (U) [Mass/Vol] Negative (12/01/23 11:50 PM) Normal Negative AO Auto Urine SS Ketones Ql (U) Negative Normal Negative AO Auto Urine SS test (u) int Not detected Invalid Interpretation Code AO Manual Urine SS UA Leuk Est Trace *ABN* (12/01/23 11:50 PM) Invalid Interpretation Code Negative AO Auto Urine SS UA Nitrite Negative (12/01/23 11:50 PM) Normal Negative AO Auto Urine SS UA pH 6.0 (12/01/23 11:50 PM) Normal 5.0 - 8.0 AO Auto Urine SS UA Protein Negative Normal Negative AO Auto Urine SS UA RBC None Seen /HPF Normal None Seen AO Auto Urine SS UA Spec Grav >=1.030 *ABN* (12/01/23 11:50 PM) Invalid Interpretation Code 1.015-1.025 AO Auto Urine SS UA Specimen Type Clean Catch (12/01/23 11:50 PM) Normal AO Auto Urine SS UA Squam Epithelial 0-5 /HPF Invalid Interpretation Code None Seen AO Auto Urine SS UA Urobilinogen 0.2 E.U./dL Normal 0.2-1.0 AO Auto Urine SS WBC LM.HPF (Urine sed) [#/Area] 0-5 /HPF Invalid Interpretation Code None Seen AO Auto Urine SS LABORATORYOrdered By: SYSTEM SYSTEM on 12-01-2023 Basophil, Absolute 0.1 103/mcL Normal 0.0 - 0.2 10^3/mcL AO Workflow SS Basophils/100 WBC (Bld) 1.1 % Normal 0.0 - 2.5 % AO Workflow SS Calcium [Mass/Vol] 8.7 mg/dL Normal 8.4 - 10. 2 mg/dL AO ADM SS Chloride [Moles/Vol] 103 mmol/L Normal 98 - 10 7 mmol/L AO ADM SS CO2 [Moles/Vol] 26 mmol/L Normal 22 - 29 mmol/L AO ADM SS Creatinine [Mass/Vol] 0.88 mg/dL Normal 0.55 - 1.02 mg/dL AO ADM SS Electrolyte Balance 10.0 mEq/L Normal 4.0 - 15 .0 mEq/L AO ADM SS Eosinophil, Absolute 0.3 103/mcL Normal 0.0 - 0 .4 10^3/mcL AO Workflow SS Eosinophils/100 WBC (Bld) 3.3 % Normal 0.0 - 7.0 % AO Workflow SS Erythrocyte distribution width (RBC) [Ratio] 14.2 % Normal 11.5 - 14.5 % AO Workflow SS GFR/1.73 sq M.predicted among blacks MDRD (S/P/Bld) [Vol rate/Area] 93 ml/min/1.73sqm Invalid Interpretation Code AO Chemistry S Comment on above: Interpretive Data: GFR Population mean for , Non- Americans Ages 20-29 = 116 mL/min/1.73 sq.m. Ages 30-39 = 107 mL/min/1.73 sq.m. Ages 40-49 = 99 mL/min/1.73 sq.m. Ages 50-59 = 93 mL/min/1.73 sq.m. Ages 60-69 = 85 mL/min/1.73 sq.m. Ages 70+ = 75 mL/min/1.73 sq.m. Chronic Kidney Disease: Less than 60 mL/min/1.73 square meters End Stage Renal Disease: Less than 15 mL/min/1.73 square meters GFR/1.73 sq M.predicted among non-blacks MDRD (S/P/Bld) [Vol rate/Area] 77 ml/min/1.73sqm Invalid Interpretation Code AO Chemistry S Comment on above: Interpretive Data: GFR Population mean for , Non- Americans Ages 20-29 = 116 mL/min/1.73 sq.m. Ages 30-39 = 107 mL/min/1.73 sq.m. Ages 40-49 = 99 mL/min/1.73 sq.m. Ages 50-59 = 93 mL/min/1.73 sq.m. Ages 60-69 = 85 mL/min/1.73 sq.m. Ages 70+ = 75 mL/min/1.73 sq.m. Chronic Kidney Disease: Less than 60 mL/min/1.73 square meters End Stage Renal Disease: Less than 15 mL/min/1.73 square meters Glucose [Mass/Vol] 96 mg/dL Normal 70 - 105 mg/dL AO ADM SS Hematocrit (Bld) [Volume fraction] 41.6 % Normal 37.0 - 47.0 % AO Workflow SS Hemoglobin (Bld) [Mass/Vol] 14.4 G/dL Normal 12.0 - 16.0 G/dL AO Workflow SS Lymphocyte, Absolute 3.4 103/mcL Normal 0.8 - 3 .9 10^3/mcL AO Workflow SS Lymphocytes/100 WBC (Bld) 35.1 % Normal 10.0 - 50.0 % AO Workflow SS MCH (RBC) [Entitic mass] 29.0 pg Normal 27.0 - 31.2 pg AO Workflow SS MCHC 34.6 G/dL Normal 33.0 - 37.0 G/dL AO Workflow SS MCV (RBC) [Entitic vol] 84.0 fL Normal 80.0 - 94.0 fL AO Workflow SS Monocyte distribution width Auto (Bld) [Entitic vol] 17.15 1 Normal 0.00 - 20.00 AO Workflow SS Comment on above: Result Comment: For ED adult patients suspected of sepsis, MDW<=20.0 does not rule out sepsis or risk of sepsis Monocyte, Absolute 0.9 103/mcL Normal 0.2 - 1.0 10^3/mcL AO Workflow SS Monocytes/100 WBC (Bld) 9.0 % Normal 1.7 - 13.0 % AO Workflow SS Neutrophil, Absolute 5.0 103/mcL Normal 2.9 - 6 .2 10^3/mcL AO Workflow SS Neutrophils/100 WBC (Bld) 51.5 % Normal 37.0 - 80.0 % AO Workflow SS Platelet mean volume (Bld) [Entitic vol] 8.4 fL Normal 7.4 - 10.4 fL AO Workflow SS Platelets (Bld) [#/Vol] 268 103/mcL Normal 130 - 400 10^3/mcL AO Workflow SS Potassium [Moles/Vol] 3.5 mmol/L Normal 3.5 - 5.1 mmol/L AO ADM SS RBC (Bld) [#/Vol] 4.96 106/mcL Normal 4.20 - 5.4 0 10^6/mcL AO Workflow SS Sodium [Moles/Vol] 139 mmol/L Normal 136 - 145 mmol/L AO ADM SS Troponin I.cardiac DL <= 0.01 ng/mL [Mass/Vol] ng/L Normal 0 - 51 ng/L AO ADM SS Comment on above: Interpretive Data: H igh Sensitive Troponin I Reference Ranges: Female: 0-51 ng/L Male: 0-76 ng/L Testing performed on [employer] using a homogeneous sandwich chemiluminescent immunoassay based on [employer] technology. Urea nitrogen [Mass/Vol] 23 mg/dL High 7 - 18 mg/dL AO ADM SS Urea nitrogen/Creatinine [Mass ratio] 26 ratio Normal 7 - 27 ratio AO ADM SS WBC (Bld) [#/Vol] 9.7 103/mcL Normal 4.6 - 10.8 10^3/mcL AO Workflow SS CNOVon 04-16-2023 CNOV Office Visit (OBGYWM ) DESIRE MAY ([id number]) 1995 F Date Time Provider Department 04/16/23 2:00 PM ALLA FLORES OBGYWIrasema During your visit today, we recorded the following information about you: Blood pressure Weight Height Last Period 112/72 80.6 kg 1.524 m 03/25/23 Alla Flores MD 04/16/2023 2:30 PM Signed Photographers' Model offered: Patient declines. Desire is a 27 year old who presents for an annual gynecologic exam. Menses: Induced by provera and been taking letrozole. 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 No bloating, early satiety, indigestion, or increased flatulence. Bladder: No dysuria, gross hematuria, urinary frequency, urinary urgency, or incontinence. Breast: No breast lumps, nipple d/c, overlying skin changes, redness or skin retraction. Allergies and current medication updated:Yes EXAM: BP 112/72 Ht 5' 0 (1.52m) Wt 177 lb 12.8 oz (80.7kg) LMP 03/25/2023 BMI 34.72 kg/(m2). GENERAL: , female pleasantin no apparent distress BREAST: soft, non-tender, symmetric, no dominant mass, normal nipple-areolar complex, no lymphadenopathy, and no nipple discharge CHEST: Normal inspiratory effort ABDOMEN: soft, non-tender, and no masses PELVIC: external genitalia normal, normal Bartholin's glands, urethra, [place]'s glands, no vulvar lesions, no cervical lesions, good vaginal support, physiologic discharge present, normal appearing perineal body and perianal region BIMANUAL: uterus normal size, shape and consistency, no adnexal masses, and non-tender RECTOVAGINAL: deferred. NEURO: alert and oriented x3,exam grossly non-focal EXTREMITIES: normal ASSESSMENT/PLAN: 1) Health maintenance: Pap done with reflex HPV. Nutrition, exercise and routine health maintenance exams reviewed. 2) Contraception: none. Contraceptive options reviewed and information provided. 3) STD screening: Declined STD check. 4) Follow up one year or sooner as needed 5) PCOS AND infertility - encouraged weight loss through healthy lifestyle changes before any additional infertility evaluation or treatments Alla Flores MD Allergies As of Date: 04/16/2023 Noted Allergy Reaction ROBITUSSIN (GUAIFENESIN) 12/26/2017 14 - Other: See Comments Comments: Heart races Date Reviewed: 04/16/2023 Reviewed by: Alla Flores MD - Fully Assessed Reason for Visit: Well Woman [1463] Primary Visit Diagnosis:Encounter for gynecological examination (general) (routine) without abnormal findings [Z01.419] Other Visit Diagnoses:Screening for cervical cancer [Z12.4] Special screening examination for human papillomavirus (HPV) [Z11.51] Order(s):PAP TEST [GOB5079] Order #: [id number]. #:[id number] Prescriptions as of 04/27/2023 - multivit with calcium,iron,min (WOMEN'S MULTIPLE VITAMINS ORAL) Take 1 tablet by mouth once daily. - albuterol HFA (PROVENTIL HFA, VENTOLIN HFA) 90 mcg/actuation inhaler Inhale 2 Puffs as instructed every 4 hours as needed for Wheezing/Shortness of Breath. Problem List As Of Date 04/16/2023 Noted Resolved Rh negative state in antepartum period [O26.899*05/09/2020 12/16/2020 Mild intermittent asthma without complication [*06/21/2020 PCOS (polycystic ovarian syndrome) [E28.2] 06/21/2020 Encounter for supervision of normal first pregn*08/17/2020 12/16/2020 Abnormal glucose in , antepartum [O99.*08/18/2020 12/16/2020 Medications Discontinued During This Encounter Prescriptions - letrozole (FEMARA) 2.5 mg tablet (Discontinued) Reported on 04/16/2023 - medroxyPROGESTERone (PROVERA) 10 mg tablet (Discontinued) Reported on 04/16/2023 - PNV [id number]-[id number]-dha 90 mg iron- 1 mg-200 mg cap (Discontinued) Reported on 07/24/2022 Disposition: Return in 1 year (on 04/16/2024) for Annual Exam. Follow-up and Disposition History for Encounter Date Provider Department Center 04/16/2023 [id number] FLORES Letter Text Encounter (more content not included)... Normal [facility] PAP TESTon 04-16-2023 ADEQUACY Satisfactory for interpretation Normal [facility] Comment on above: Order Comment: Speci men Type: FLUID SPECIMEN Ordering Facility: [facility] Address: [address] [place] [address] Performed By: #### L [id number] #### [facility] CLIA [id number] [address] [facility] DESK [id number] [place] [address] [place] CASE REPORT Normal [facility] Comment on above: Order Comment: Speci men Type: FLUID SPECIMEN Ordering Facility: [facility] Address: [address] [place] [address] Result Comment: Gyne cologic Cytology Report Case: [id number] Authorizing Provider: Alla Flores MD Collected: 04/16/2023 02:28 PM Ordering Location: OB/Gynecology Received: 04/16/2023 05:01 PM First Screen: Clapacs, Kristin Specimen: Pap Test, ThinPrep, Cervix Performed By: #### L [id number] #### [facility] CLIA [id number] [address] [place] [address] [place] CLINICAL HISTORY, CYTOLOGY, OUTBOUND SALES EXECUTIVE Routine Exam Normal [facility] Comment on above: Order Comment: Speci men Type: FLUID SPECIMEN Ordering Facility: [facility] Address: [address] [place] [address] Performed By: #### L [id number] #### [facility] CLIA [id number] [address] [place] [address] [place] CYTOLOGY PAP OTHER INT Predominance of coccobacilli consistent with shift in vaginal [place] Normal [facility] Comment on above: Order Comment: Speci men Type: FLUID SPECIMEN Ordering Facility: [facility] Address: [address] [place] [address] Performed By: #### L [id number] #### [facility] CLIA [id number] [address] [place] [address] [place] FINAL PERFORMING LAB Normal [facility] Comment on above: Order Comment: Speci men Type: FLUID SPECIMEN Ordering Facility: [facility] Address: [address] [place] [address] Result Comment: Tech nical component, rehabilitation supervisor screening performed at [facility], [facility] [place] [id number] CLIA# [id number] Diagnostic interpretation performed at [facility], [address] [place], [place] [id number] CLIA# [id number] Chief Airport Guide: Desmond Buenrostro M.D. Performed By: #### L [id number] #### [facility] CLIA [id number] [address] [place] [address] [place] HPV REFLEX HPV if Atypical Normal [facility] Comment on above: Order Comment: Speci men Type: FLUID SPECIMEN Ordering Facility: [facility] Address: [address] [place] [address] Performed By: #### L [id number] #### [facility] CLIA [id number] [address] [place] [address] [place] INTERPRETATION, CYTOLOGY, OUTBOUND SALES EXECUTIVE Normal [facility] Comment on above: Order Comment: Speci men Type: FLUID SPECIMEN Ordering Facility: [facility] Address: [address] [place] [address] Result Comment: Nega tive for intraepithelial lesion or malignancy. Performed By: #### L [id number] #### [facility] CLIA [id number] [address] [place] [address] [place] LMP 03/25/[address] [facility] Comment on above: Order Comment: Speci men Type: FLUID SPECIMEN Ordering Facility: [facility] Address: [address] [place] [address] Performed By: #### L [id number] #### [facility] CLIA [id number] [address] [place] [address] [place] PAP DISCLAIMER COMMENT The Pap Smear is a screening test for cervical cancer. False negative results occur with all screening tests, emphasizing the need for rescreening at recommended intervals, and clinical correlation. Normal [facility] Comment on above: Order Comment: Speci men Type: FLUID SPECIMEN Ordering Facility: [facility] Address: [address] [place] [address] Performed By: #### L [id number] #### [facility] CLIA [id number] [address] [place] [address] [place] PAP OPTIMIZATION ANALYST COMMENT This specimen has be en analyzed by the ThinPrep Imaging System, an automated imaging and review system, which assists the laboratory in evaluating cells on ThinPrep Pap tests. Following automated imaging, selected mckeon from every slide are reviewed by a rehabilitation supervisor. Normal [facility] Comment on above: Order Comment: Speci men Type: FLUID SPECIMEN Ordering Facility: [facility] Address: [address] [place] [address] Performed By: #### L [id number] #### [facility] CLIA [id number] [address] [place] [address] [place] Progest SerPl-mCncon 04-11- 023 Progesterone [Mass/Vol] 0.3 ng/mL Normal See comment [facility] Comment on above: Order Comment: Speci men Type: BLOOD SPECIMEN Ordering Facility: [facility] Address: [address] [place] [address] Result Comment: Mens trual Cycle Progesterone Reference Ranges: Follicular: <1.0 ng/mL Ovulation: <12.1 ng/mL Luteal: 1.8 to 23.9 ng/mL. Progesterone Reference Ranges vary by gestational period: First Trimester: 11.0 to 44.3 ng/mL Second Trimester: 25.4 to 83.3 ng/mL Third Trimester: 58.7 to 214 ng/mL Post menopausal Progesterone: <0.5 ng/mL Reference: 1. Progesterone (Progesterone III) [package insert V 1.0 [place] Citizen]. [facility], [place], [place]. March 2015. Performed By: #### 2 [id number] #### [facility] CLIA [id number] [address] [place] [address] [place] Progress Noteon 12-26-2022 Progress Note Chart reviewed of ED follow up Seen in [place] ED on 12/20/22 Reason: ankle pain Discharge instructions: PATIENT REFERRED TO: Montse Child MD [address] [place], [place] [id number] In 1 day [facility] [address] [place] [address] [address] [place] [phone] I work with Montse Child MD's office. We received notice you were in the ED recently and wanted to ask some questions to see how you are doing. This should only take a few minutes. According to ER notes you were there for ankle pain. Is that correct?Yes How are your symptoms now? better- Patient states her right ankle swelling is gone. She puts her discomfort at a 1/5. She also states she has minimal amount of bruising and wears her air cast as much as possible but not at HS. She rotates advil/tylenol for discomfort and has not been using ice. Declined ED follow appointment. Any questions about the instructions the emergency department gave you?No Have you picked up the medication prescribed by ED and taking as prescribed? yes-unable to take due to nausea Are there any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 Cholecystectomy, lap ALLERGIES Robitussin [Guaifenesin] MEDICATIONS albuterol HFA (PROVENTIL HFA, VENTOLIN HFA) 90 mcg/actuation inhaler Inhale 2 Puffs as instructed every 4 hours as needed for Wheezing/Shortness of Breath. letrozole (FEMARA) 2.5 mg tablet Take 2 tablets by mouth once daily. On days 3-7 of menstrual cycle. multivit with calcium,iron,min (WOMEN'S MULTIPLE VITAMINS ORAL) Take 1 tablet by mouth once daily. PNV 245-quyy-uwdlqu-dha 90 mg iron- 1 mg-200 mg cap Take 1 tablet by mouth once daily. (Patient not taking: Reported on 07/24/2022) FAMILY HISTORY Problem Relation Age of Onset Hypertension Mother Social History Tobacco Use Smoking status: Former Smokeless tobacco: Never Vaping Use Vaping Use: Never used Substance Use Topics Alcohol use: Not Currently Drug use: Not Currently Review of Systems Constitutional: Negative for chills and fever. HENT: Positive for congestion. Negative for ear pain and sore throat. Respiratory: Negative for cough and shortness of breath. Cardiovascular: Negative for chest pain. Gastrointestinal: Negative for diarrhea and vomiting. Objective BP 110/70 Pulse 100 Temp 36.9 ?C (98.5 ?F) (Tympanic) Resp 18 Wt 84 kg (185 lb 3.2 oz) LMP 07/17/2022 SpO2 98% BMI 34.99 kg/m? Physical Exam Vitals and nursing note reviewed. Constitutional: General: She is not in acute distress. Appearance: Normal appearance. She is not toxic-appearing. HENT: Right Ear: Tympanic membrane and ear canal normal. Left Ear: Tympanic membrane and ear canal normal. Nose: Congestion present. Mouth/Throat: Mouth: Mucous membranes are moist. Pharynx: No oropharyngeal exudate or posterior oropharyngeal erythema. Eyes: Conjunctiva/sclera: Conjunctivae normal. Cardiovascular: Rate and Rhythm: Normal rate and regular rhythm. Pulmonary: Effort: Pulmonary effort is normal. Breath sounds: Normal breath sounds. Neurological: Mental Status: She is alert. Assessment and Plan ASSESSMENT/PLAN: 1. COVID - ICD9: 079.89, ICD10: U07.1 (primary diagnosis) -Offered confirmative PCR test, but patient declines. She did a swab at work that came back positive. -Discussed with patient that she is in the window for the antiviral. She does have history of asthma and is overweight, so would likely meet criteria for treatment. However, patient declines. She is only having nasal congestion, no severe symptoms. -Given isolation precautions. 2. Nasal congestion - ICD9: 478.19, ICD10: R09.81 -May use OTC Flonase, decongestants as needed. Diagnosis and treatment plan were discussed and questions were answered to the patient's satisfaction. Pt acknowledged understanding of concepts and follow up plan. Specific signs and symptoms that would indicate the need for higher level of care were discussed in detail warranting prompt ER evaluation. ALEXIS Mcdonough Allergies As of Date: 09/19/2022 Noted Allergy Reaction ROBITUSSIN (GUAIFENESIN) 12/26/2017 14 - Other: See Comments Comments: Heart races Date Reviewed: 09/19/2022 Reviewed by: Gauri Fountain LPN - Fully Assessed Reason for Visit: Nasal Congestion [235] Cmt: Congestion x 3 days Primary Visit Diagnosis:COVID [U07.1] Other Visit Diagnosis:Nasal congestion [R09.81] Prescriptions as of 09/19/2022 - letrozole (FEMARA) 2.5 mg tablet Take 2 tablets by mouth once daily. On days 3-7 of menstrual cycle. - multivit with calcium,iron,min (WOMEN'S MULTIPLE VITAMINS ORAL) Take 1 tablet by mouth once daily. - PNV 159-yytf-xozrtn-dha 90 mg iron- 1 mg-200 mg cap Take 1 tablet by mouth once daily. - albuterol HFA (PROVENTIL HFA, VENTOLIN HFA) 90 mcg/actuation inhaler Inhal (more content not included)... [facility] DESIRE MAY ([id number]) 1995 F Date Time Provider Department 09/11/22 ALLA FLORES During your visit today, we recorded the following information about you: Juliana Smith RN 09/11/2022 1:36 PM Signed ----- Message from Alla Flores MD sent at 09/11/2022 12:25 PM EDT ----- Indicates anovulation Will need to increase letrozole to 5mg MD Juliana Liang RN 09/11/2022 1:40 PM Signed Patient notified of results, verbalizes understanding of instructions. Please file pended medication and progesterone blood work. Juliana Flores MD 09/11/2022 1:45 PM Signed Done Alla Flores MD Allergies As of Date: 09/11/2022 Noted Allergy Reaction ROBITUSSIN (GUAIFENESIN) 12/26/2017 14 - Other: See Comments Comments: Heart races Date Reviewed: 07/24/2022 Reviewed by: Alla Flores MD - Fully Assessed Reason for Visit: Results [95] Primary Visit Diagnosis:Anovulation [N97.0] Other Visit Diagnosis:PCOS (polycystic ovarian syndrome) [E28.2] Order(s):letrozole (FEMARA) 2.5 mg tabletTake 2 tablets by mouth once daily. On days 3-7 of menstrual cycle.Disp: 10 tabletRfl: 0 PROGESTERONE BLD [SQPROG] Order #: [id number] FUTURE Prescriptions as of 09/11/2022 - letrozole (FEMARA) 2.5 mg tablet Take 2 tablets by mouth once daily. On days 3-7 of menstrual cycle. - multivit with calcium,iron,min (WOMEN'S MULTIPLE VITAMINS ORAL) Take 1 tablet by mouth once daily. - PNV 657-smqa-ntftcf-dha 90 mg iron- 1 mg-200 mg cap Take 1 tablet by mouth once daily. - albuterol HFA (PROVENTIL HFA, VENTOLIN HFA) 90 mcg/actuation inhaler Inhale 2 Puffs as instructed every 4 hours as needed for Wheezing/Shortness of Breath. Problem List As Of Date 09/11/2022 Noted Resolved Rh negative state in antepartum period [O26.899*05/09/2020 12/16/2020 Mild intermittent asthma without complication [*06/21/2020 PCOS (polycystic ovarian syndrome) [E28.2] 06/21/2020 Encounter for supervision of normal first pregn*08/17/2020 12/16/2020 Abnormal glucose in , antepartum [O99.*08/18/2020 12/16/2020 Prescriptions ordered this encounter Disp Refills Start End LETROZOLE 2.5 MG TABLET 10 t* 0 09/11/2022 Route: ORAL Sig: Take 2 tablets by mouth once daily. On days 3-7 of menstrual cycle. Medications Discontinued During This Encounter Prescriptions - letrozole (FEMARA) 2.5 mg tablet (Discontinued) Take 1 tablet by mouth once daily. On days 3-7 of menstrual cycle. Encounter Status:Closed by JULIANA SMITH RN on 09/11/[address] [facility] Progest SerPl-mCncon 023 Progesterone [Mass/Vol] 0.6 ng/mL Normal See comment [facility] Comment on above: Order Comment: Speci men Type: BLOOD SPECIMEN Ordering Facility: [facility] Address: [address] [place] [phone] Result Comment: Mens trual Cycle Progesterone Reference Ranges: Follicular: <1.0 ng/mL Ovulation: <12.1 ng/mL Luteal: 1.8 to 23.9 ng/mL. Progesterone Reference Ranges vary by gestational period: First Trimester: 11.0 to 44.3 ng/mL Second Trimester: 25.4 to 83.3 ng/mL Third Trimester: 58.7 to 214 ng/mL Post menopausal Progesterone: <0.5 ng/mL Reference: 1. Progesterone (Progesterone III) [package insert V 1.0 [place] Citizen]. [facility], [place], [place]. March 2015. Performed By: #### 2 839-9 #### [facility] CLIA [id number] [address] [facility] DESK [id number] [place] [address] [facility] Office Visiton 08-07-2022 Follow-up visit [id number] Desire May 1995 F Date Provider Department Center 08/07/2022 TYRELL RAE [facility] Family History Problem Relation Age of Onset Depression Father Family Status - Relation Status Age at Father Alive Mother Alive Level of Service:39927 ME OFFICE/OUTPATIENT ESTABLISHED [facility] 10-19 MIN Reason for Visit and Comments: heal pain [Other] - right [facility] Progress Noteon 08-07-2022 Progress Note 08/07/2022 Desire May (: 1995) is a 26 y.o. female , Established patient, here for evaluation of the following chief complaint(s): heal pain (right) ASSESSMENT/PLAN: 1. Plantar fasciitis Assessment & Plan: Consistent with plantar fasciitis. Reviewed and provided written patient education/instructions regarding diagnosis and management. Reviewed symptom management with non-pharmacological interventions and appropriate use of otc medications for relief of symptoms. Follow up for worsening or no improvement in symptoms. Follow up if symptoms worsen or fail to improve. SUBJECTIVE/OBJECTIVE: HPI - Desire May (: 1995) is a 26 y.o. female , Established patient, here for the evaluation of the following chief complaint(s): heal pain (right) Right heal pain on/off for a few months. Current episode for 4 days. Pain worse in the morning. 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 Wearing new shoes nikes at work with good cushion. Swelling of right heal. Takes ibuprofen, tyelonol , elevation, soaks in epsom salt. Prior to Admission medications Medication Sig Start Date End Date Taking? Authorizing Provider albuterol 108 (90 Base) MCG/ACT inhaler TAKE 2 (INHALATION) EVERY 4-6 HOURS 06/21/22 Yes Historical Provider, Multiple Vitamin (MULTIVITAMIN ADULT PO) Take 1 tablet by mouth in the morning. Yes Historical Provider, Health Maintenance Due Topic Date Due Hepatitis B Vaccines (1 of 3 - 3-dose series) Never done HIV Screening Never done Varicella Vaccines (1 of 2 - 2-dose childhood series) Never done HPV Vaccines (1 - 2-dose series) Never done Hepatitis C Screening Never done Pap Smear Never done COVID-19 Vaccine (3 - Booster for Pfizer series) 05/02/2021 Influenza Vaccine (1) 03/01/2022 Review of Systems Constitutional: Negative. Musculoskeletal: Right heel pain Vitals: 08/07/22 1403 BP: 94/62 Pulse: 99 Resp: 16 SpO2: 96% Weight: 180 lb (81.6 kg) Physical Exam Constitutional: General: She is not in acute distress. Appearance: Normal appearance. She is obese. She is not ill-appearing. HENT: Head: Normocephalic and atraumatic. Cardiovascular: Rate and Rhythm: Normal rate and regular rhythm. Pulses: Normal pulses. Heart sounds: Normal heart sounds. Pulmonary: Effort: Pulmonary effort is normal. Breath sounds: Normal breath sounds. Musculoskeletal: Right foot: Normal range of motion and normal capillary refill. Swelling and tenderness present. No prominent metatarsal heads or bony tenderness. Normal pulse. Left foot: Normal. Feet: Neurological: Mental Status: She is alert and oriented to person, place, and time. Psychiatric: Mood and Affect: Mood normal. Behavior: Behavior normal. An electronic signature was used to authenticate this note. Tyrell Delaney APRN - DAIN 08/07/2022 2:[address] [facility] Progress Note Photographers' Model for Intima te and Non Intimate Exam Photographers' Model was declined Photographers' Model: na [facility] 36on 08-06-2022 36 noted Normal [facility] 36 S: Patient called e clinical access center with complaint of Right heal pain cant walk , burning B: Ongoing past 2 days A: Patient c/o heal pain /10, walking, it really agustin up through her foot. Has taken Tylenol, ibuprofen, and using compression sock Denies swelling or fever R: POD for Dr. Cihld Appointment scheduled 08/07/22 at 1400 with Arnold Delaney. Insurance verified. Instructed to bring medications to OV and wear a mask. Home Care advice given. Patient instructed to call back with worsening symptoms, concerns or questions. Patient verbalized understanding. Message to the office for review by the provider and needs recommendation from Provider for treatment going forward. Reason for Disposition SEVERE pain (e.g., excruciating, unable to do any normal activities) Protocols used: Foot [id number] [facility] CNOVon 07-24-2022 CNOV Office Visit (OBGYWM ) MAYDESIRE ([id number]) 1995 F Date Time Provider Department 07/24/22 11:00 AM ALLA FLORES OBALIRIOWIrasema During your visit today, we recorded the following information about you: Blood pressure Weight Last Period 102/ 84.4 kg 07/17/22 Alla Flores MD 07/24/2022 12:31 PM Signed Desire May is a 26 year old female who presents for problem visit. HPI: Patient presents as desires conception. She has tried for the past few months without . To get with her daughter she needed letrozole and was with the 2nd round. Her daughter will be 2 this October. 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 Comments: Sexual Activity: Yes; Male Contraception: None PAST MEDICAL HISTORY Diagnosis Date NEGATIVE MEDICAL HISTORY PAST SURGICAL HISTORY Procedure Laterality Date LAPAROSCOPY SURG CHOLECYSTECTOMY 2019 Cholecystectomy, lap FAMILY HISTORY Problem Relation Age of Onset Hypertension Mother Social History Tobacco Use Smoking status: Former Smokeless tobacco: Never Vaping Use Vaping Use: Never used Substance Use Topics Alcohol use: Not Currently Drug use: Not Currently Current Outpatient Medications Medication Sig multivit with calcium,iron,min (WOMEN'S MULTIPLE VITAMINS ORAL) Take 1 tablet by mouth once daily. albuterol HFA (PROVENTIL HFA, VENTOLIN HFA) 90 mcg/actuation inhaler Inhale 2 Puffs as instructed every 4 hours as needed for Wheezing/Shortness of Breath. PNV 494-cnlh-dirkiu-dha 90 mg iron- 1 mg-200 mg cap Take 1 tablet by mouth once daily. (Patient not taking: Reported on 07/24/2022) No current facility-administered medications for this visit. Allergies As of Date: 07/24/2022 Allergen Noted Reaction ROBITUSSIN [GUAIFENESIN] 12/26/2017 Other: See Comments Fully Assessed 07/24/2022 Allergies and current medication updated:Yes EXAM: Wt 186 lb (84.4kg) LMP 07/17/2022 GENERAL: pleasant, female in no apparent distress ASSESSMENT AND PLAN: 26yo female with PCOS AND anovulation Discussed R/B/A and patient wishes to proceed with letrozole to induce ovulation. Use reviewed in detail AND all questions answered. Also discussed intercourse timing AND importance of preconception folic acid. Patient will contact office in no menses in 2 weeks as will prescribe provera as her menses can be irregular. Medical Decision Making: Problems: Low: Acute, uncomplicated illness or injury Data: Unique test result(s) reviewed: 3+ Risk: Moderate: Drug management Medical Decision Making Level: 4 - Moderate Alla Flores MD Referring Provider: SELF [200] Allergies As of Date: 07/24/2022 Noted Allergy Reaction ROBITUSSIN (GUAIFENESIN) 12/26/2017 14 - Other: See Comments Comments: Heart races Date Reviewed: 07/24/2022 Reviewed by: Alla Flores MD - Fully Assessed Reason for Visit: Other [1320] Cmt: Preconception Primary Visit Diagnosis:PCOS (polycystic ovarian syndrome) [E28.2] Other Visit Diagnosis:Anovulation [N97.0] Order(s):letrozole (FEMARA) 2.5 mg tabletTake 1 tablet by mouth once daily. On days 3-7 of menstrual cycle.Disp: 5 tabletRfl: 0 PROGESTERONE BLD [SQPROG] Order #: [id number] FUTURE Prescriptions as of 07/24/2022 - multivit with calcium,iron,min (WOMEN'S MULTIPLE VITAMINS ORAL) Take 1 tablet by mouth once daily. - letrozole (FEMARA) 2.5 mg tablet Take 1 tablet by mouth once daily. On days 3-7 of menstrual cycle. - PNV 048-qocu-iqcnib-dha 90 mg iron- 1 mg-200 mg cap Take 1 tablet by mouth once daily. - albuterol HFA (PROVENTIL HFA, VENTOLIN HFA) 90 mcg/actuation inhaler Inhale 2 Puffs as instructed every 4 hours as needed for Wheezing/Shortness of Breath. Problem List As Of Date 07/24/2022 Noted Resolved Rh negative state in antepartum period [O26.899*05/09/2020 12/16/2020 Mild intermittent asthma without complication [*06/21/2020 PCOS (polycystic ovarian syndrome) [E28.2] 06/21/2020 Encounter for supervision of normal first pregn*08/17/2020 12/16/2020 Abnormal glucose in , antepartum [O99.*08/18/2020 12/16/2020 Prescriptions ordered this encounter Disp Refills Start End LETROZOLE 2.5 MG TABLET 5 ta* 0 07/24/2022 Route: ORAL Sig: Take 1 tablet by mouth once daily. On days 3-7 of menstrual cycle. Encounter Status:Closed by ALLA FLORES on 07/24/[address] [facility] CR [facility] 3+ [facility] Hand Complete 3+ Views Left Patient Name: DESIRE MAY [facility] ACCESSION EXAM DATE/TIME PROCEDURE ORDERING PROVIDER [id number] 02/23/2022 11:30 EDT CR Hand Complete 3+ MD MATEUSZ, MONTSE Views Left CPT code 03290 Reason For Exam (CR Hand Complete 3+ Views Left) Polyneuropathy, unspecified Report LEFT HAND AND WRIST: CLINICAL INDICATION: Polyneuropathy, pain. TECHNIQUE: PA, Lat, and oblique hand and PA, Lat and oblique wrist COMPARISON: None. FINDINGS: There is no fracture or dislocation. No arthritic change is identified. No bone lesion is identified. There is no soft tissue abnormality. IMPRESSION: Normal left hand and wrist Report Dictated on Final Dictating Physician: MD BOOTH NICHOLAS Signed Date and Time: 02/24/2022 11:08 am Signed by: MD BOOTH NICHOLAS Transcribed Date and Time: 02/24/2022 11:10 Normal [facility] CR Wrist Complete 3 Views [place] 02-23-2022 CR Wrist Complete 3 Views Left Patient Name: DESIRE MAY [facility] ACCESSION EXAM DATE/TIME PROCEDURE ORDERING PROVIDER [id number] 02/23/2022 11:30 EDT CR Wrist Complete 3 MD MATEUSZ, MONTSE Views Left CPT code 28395 Reason For Exam (CR Wrist Complete 3 Views Left) acute left wrist pain Report LEFT HAND AND WRIST: CLINICAL INDICATION: Polyneuropathy, pain. TECHNIQUE: PA, Lat, and oblique hand and PA, Lat and oblique wrist COMPARISON: None. FINDINGS: There is no fracture or dislocation. No arthritic change is identified. No bone lesion is identified. There is no soft tissue abnormality. IMPRESSION: Normal left hand and wrist Report Dictated on Final Dictating Physician: MD BOOTH NICHOLAS Signed Date and Time: 02/24/2022 11:08 am Signed by: MD BOOTH NICHOLAS Transcribed Date and Time: 02/24/2022 11:09 Normal [facility] [place] [facility] DHEA-S [Mass/Vol] 185.1 ug/dL 98.8 - 340.0 ug/dL [facility] [id number] [facility] 11-30-19 E2 [Mass/Vol] 38 pg/mL [facility] FSH [facility] 11-29-2021 Follitropin Qn 2.9 m[IU]/mL See comment mIU/mL [facility] GLUCOSE FASTING BLDon 2021 Glucose post fast [Mass/Vol] 94 mg/dL 74 - 99 mg/dL [facility] HGB A1Con 11-29-2021 Average glucose Estimated from glycated hemoglobin (Bld) [Mass/Vol] 105 mg/dL [facility] HbA1c (Bld) [Mass fraction] 5.3 % 4.3 - 5.6 % [facility] LUTEINIZING HORMONEon 2021 Lutropin Qn 8.5 m[IU]/mL See comment mIU/mL [facility] PROGESTERONE BLDon Progesterone [Mass/Vol] 0.4 ng/mL See comment ng/mL [facility] TESTOSTERONE TOTALon 022 Testosterone [Mass/Vol] 38 ng/dL <40 ng/dL [facility] TSH Don 11-29-2021 TSH Qn 2.330 m[IU]/L 0.270 - 4.200 mIU/L [facility] LABORATORYOrdered By: Gauri Arroyo on 08-22-2021 Basophil, Absolute 0.00 103/mcL Invalid Interpretation Code 0.00 - 0.19 10^3/mcL AO Auto Heme SS Basophils/100 WBC (Bld) 0.2 % Invalid Interpretation Code 0.0 - 2.5 % AO Auto Heme SS Calcium [Mass/Vol] 9.4 mg/dL Invalid Interpretation Code 8.4 - 10.2 mg/dL AO ADM SS Chloride [Moles/Vol] 106 mmol/L Invalid Interpretation Code 98 - 107 mmol/L AO ADM SS CO2 [Moles/Vol] 20 mmol/L Invalid Interpretation Code 22 - 29 mmol/L AO ADM SS Creatinine [Mass/Vol] 0.88 mg/dL Invalid Interpretation Code 0.55 - 1.02 mg/dL AO ADM SS Electrolyte Balance 14.0 mEq/L Invalid Interpretation Code 4.0 - 15.0 mEq/L AO ADM SS Eosinophil, Absolute 0.00 103/mcL Invalid Interpretation Code 0.00 - 0.40 10^3/mcL AO Auto Heme SS Eosinophils/100 WBC (Bld) 0.3 % Invalid Interpretation Code 0.0 - 7.0 % AO Auto Heme SS Erythrocyte distribution width (RBC) [Ratio] 13.0 % Invalid Interpretation Code 11.5 - 14.5 % AO Auto Heme SS Glucose [Mass/Vol] 159 mg/dL Invalid Interpretation Code 70 - 105 mg/dL AO ADM SS Hematocrit (Bld) [Volume fraction] 39.8 % Invalid Interpretation Code 37.0 - 47.0 % AO Auto Heme SS Hemoglobin (Bld) [Mass/Vol] 13.4 G/dL Invalid Interpretation Code 12.0 - 16.0 G/dL AO Auto Heme SS Lymphocyte, Absolute 1.10 103/mcL Invalid Interpretation Code 0.77 - 3.85 10^3/mcL AO Auto Heme SS Lymphocytes/100 WBC (Bld) 9.8 % Invalid Interpretation Code 10.0 - 50.0 % AO Auto Heme SS Magnesium [Mass/Vol] 2.3 mg/dL Invalid Interpretation Code 1.8 - 2.4 mg/dL AO ADM SS MCH (RBC) [Entitic mass] 28.6 pg Invalid Interpretation Code 27.0 - 31.2 pg AO Auto Heme SS MCHC (RBC) [Mass/Vol] 33.6 G/dL Invalid Interpretation Code 33.0 - 37.0 G/dL AO Auto Heme SS MCV (RBC) [Entitic vol] 85.0 fL Invalid Interpretation Code 80.0 - 94.0 fL AO Auto Heme SS Monocyte, Absolute 0.20 103/mcL Invalid Interpretation Code 0.15 - 1.00 10^3/mcL AO Auto Heme SS Monocytes/100 WBC (Bld) 1.9 % Invalid Interpretation Code 1.7 - 13.0 % AO Auto Heme SS Neutrophil, Absolute 10.00 103/mcL Invalid Interpretation Code 2.85 - 6.16 10^3/mcL AO Auto Heme SS Neutrophils/100 WBC (Bld) 87.8 % Invalid Interpretation Code 37.0 - 80.0 % AO Auto Heme SS Platelet mean volume (Bld) [Entitic vol] 9.1 fL Invalid Interpretation Code 7.4 - 10.4 fL AO Auto Heme SS Platelets (Bld) [#/Vol] 332 103/mcL Invalid Interpretation Code 130 - 400 10^3/mcL AO Auto Heme SS Potassium [Moles/Vol] 4.6 mmol/L Invalid Interpretation Code 3.5 - 5.1 mmol/L AO ADM SS RBC (Bld) [#/Vol] 4.69 106/mcL Invalid Interpretation Code 4.20 - 5.40 10^6/mcL AO Auto Heme SS Sodium [Moles/Vol] 140 mmol/L Invalid Interpretation Code 136 - 145 mmol/L AO ADM SS Urea nitrogen [Mass/Vol] 19 mg/dL Invalid Interpretation Code 7 - 18 mg/dL AO ADM SS Urea nitrogen/Creatinine [Mass ratio] 22 ratio Invalid Interpretation Code 7 - 27 ratio AO ADM SS WBC (Bld) [#/Vol] 11.40 103/mcL Invalid Interpretation Code 4.60 - 10.80 10^3/mcL AO Auto Heme SS LABORATORYOrdered By: SYSTEM SYSTEM on 08-22-2021 GFR 95 ml/min/1.73sqm Invalid Interpretation Code AO Chemistry S GFR Non- 78 ml/min/1.73sqm Invalid Interpretation Code AO Chemistry S LABORATORYOrdered By: Gauri Arroyo on 08-21-2021 Basophil, Absolute 0.10 103/mcL Invalid Interpretation Code 0.00 - 0.19 10^3/mcL AO Auto Heme SS Basophils/100 WBC (Bld) 0.8 % Invalid Interpretation Code 0.0 - 2.5 % AO Auto Heme SS Eosinophil, Absolute 0.20 103/mcL Invalid Interpretation Code 0.00 - 0.40 10^3/mcL AO Auto Heme SS Eosinophils/100 WBC (Bld) 1.8 % Invalid Interpretation Code 0.0 - 7.0 % AO Auto Heme SS Erythrocyte distribution width (RBC) [Ratio] 12.8 % Invalid Interpretation Code 11.5 - 14.5 % AO Auto Heme SS Hematocrit (Bld) [Volume fraction] 45.9 % Invalid Interpretation Code 37.0 - 47.0 % AO Auto Heme SS Hemoglobin (Bld) [Mass/Vol] 15.3 G/dL Invalid Interpretation Code 12.0 - 16.0 G/dL AO Auto Heme SS Lymphocyte, Absolute 2.10 103/mcL Invalid Interpretation Code 0.77 - 3.85 10^3/mcL AO Auto Heme SS Lymphocytes/100 WBC (Bld) 17.9 % Invalid Interpretation Code 10.0 - 50.0 % AO Auto Heme SS MCH (RBC) [Entitic mass] 28.2 pg Invalid Interpretation Code 27.0 - 31.2 pg AO Auto Heme SS MCHC (RBC) [Mass/Vol] 33.4 G/dL Invalid Interpretation Code 33.0 - 37.0 G/dL AO Auto Heme SS MCV (RBC) [Entitic vol] 84.6 fL Invalid Interpretation Code 80.0 - 94.0 fL AO Auto Heme SS Monocyte, Absolute 0.70 103/mcL Invalid Interpretation Code 0.15 - 1.00 10^3/mcL AO Auto Heme SS Monocytes/100 WBC (Bld) 5.8 % Invalid Interpretation Code 1.7 - 13.0 % AO Auto Heme SS Neutrophil, Absolute 8.60 103/mcL Invalid Interpretation Code 2.85 - 6.16 10^3/mcL AO Auto Heme SS Neutrophils/100 WBC (Bld) 73.7 % Invalid Interpretation Code 37.0 - 80.0 % AO Auto Heme SS Platelet mean volume (Bld) [Entitic vol] 8.7 fL Invalid Interpretation Code 7.4 - 10.4 fL AO Auto Heme SS Platelets (Bld) [#/Vol] 228 103/mcL Invalid Interpretation Code 130 - 400 10^3/mcL AO Auto Heme SS RBC (Bld) [#/Vol] 5.43 106/mcL Invalid Interpretation Code 4.20 - 5.40 10^6/mcL AO Auto Heme SS WBC (Bld) [#/Vol] 11.70 103/mcL Invalid Interpretation Code 4.60 - 10.80 10^3/mcL AO Auto Heme SS LABORATORYOrdered By: Faisal Pate on 08-21-2021 Calcium [Mass/Vol] 9.1 mg/dL Invalid Interpretation Code 8.4 - 10.2 mg/dL AO ADM SS Chloride [Moles/Vol] 103 mmol/L Invalid Interpretation Code 98 - 107 mmol/L AO ADM SS CO2 [Moles/Vol] 24 mmol/L Invalid Interpretation Code 22 - 29 mmol/L AO ADM SS Creatinine [Mass/Vol] 0.76 mg/dL Invalid Interpretation Code 0.55 - 1.02 mg/dL AO ADM SS Electrolyte Balance 13.0 mEq/L Invalid Interpretation Code 4.0 - 15.0 mEq/L AO ADM SS Glucose [Mass/Vol] 106 mg/dL Invalid Interpretation Code 70 - 105 mg/dL AO ADM SS Potassium [Moles/Vol] 4.1 mmol/L Invalid Interpretation Code 3.5 - 5.1 mmol/L AO ADM SS Sodium [Moles/Vol] 140 mmol/L Invalid Interpretation Code 136 - 145 mmol/L AO ADM SS Urea nitrogen [Mass/Vol] 13 mg/dL Invalid Interpretation Code 7 - 18 mg/dL AO ADM SS Urea nitrogen/Creatinine [Mass ratio] 17 ratio Invalid Interpretation Code 7 - 27 ratio AO ADM SS LABORATORYOrdered By: SYSTEM SYSTEM on 08-21-2021 GFR 112 ml/min/1.73sqm Invalid Interpretation Code AO Chemistry S GFR Non- 93 ml/min/1.73sqm Invalid Interpretation Code AO Chemistry S LABORATORYOrdered By: Lianna Brown on 08-21-2021 M. pneumoniae IgM IA Ql (S) Negative (08/21/21 10:23 AM) Invalid Interpretation Code ZORAN Man Viro/Sero SS XR FOOT RIGHT (2 VIEWS)on Patient Name: DESIRE DE LA TORRE ---Diagnostic Radiology--- Exam Date/Time 03/09/2019 14:57:11 EDT Exam CR Foot 2 Views Right Ordering Physician MD MATEUSZ, MONTSE Accession Number [id number] CPT4 Codes 16136 () Reason For Exam Pain in right foot Report RIGHT FOOT History: Foot pain , injury Findings: Two views show no acute fracture, dislocation, bone erosion , joint space narrowing, or periosteal reaction. IMPRESSION: Negative examination. Report Dictated on --- Final --- Dictating Physician: MD CRESPO AHMAD Signed Date and Time: 03/09/2019 8:43 pm Signed by: MD CRESPO AHMAD Transcribed Date and Time: 03/09/2019 8:44 [facility], [place] [facility] From [facility] - 03/09/2019 8:44 PM EDT Patient Name: DESIRE MAY ---Diagnostic Radiology--- Exam Date/Time 03/09/2019 14:57:11 EDT Exam CR Foot 2 Views Right Ordering Physician MD MATEUSZ, MONTSE Accession Number [id number] CPT4 Codes 36776 () Reason For Exam Pain in right foot Report RIGHT FOOT History: Foot pain , injury Findings: Two views show no acute fracture, dislocation, bone erosion , joint space narrowing, or periosteal reaction. IMPRESSION: Negative examination. Report Dictated on --- Final --- Dictating Physician: MD CRESPO AHMAD Signed Date and Time: 03/09/2019 8:43 pm Signed by: MD CRESPO AHMAD Transcribed Date and Time: 03/09/2019 8:44 [facility] [place], [place] Vital Signs Date Time Vital Sign Value Performing Clinician Facility 11-25-2024 23:07-0400 Body temperature 98.3 [degF] Dr. Renata Child MD Work Phone: [facility] 11-25-2024 23:07-0400 Diastolic blood pressure 78 mm[Hg] Dr. Renata Child MD Work Phone: [facility] 11-25-2024 23:07-0400 Heart rate 87 /min Dr. Renata Child MD Work Phone: [facility] 11-25-2024 23:07-0400 Respiratory rate 16 /min Dr. Renata Child MD Work Phone: [facility] 11-25-2024 23:07-0400 SaO2% (BldA) [Mass fraction] 100 % Dr. Renata Child MD Work Phone: [facility] 11-25-2024 23:07-0400 Systolic blood pressure 112 mm[Hg] Dr. Renata Child MD Work Phone: [facility] 11-25-2024 19:49-0400 Body height 154.[address] Renata Child MD Work Phone: [facility] 11-25-2024 19:49-0400 Body mass index (BMI) [Ratio] 30 kg/m2 Dr. Renata Child MD Work Phone: [facility] 11-25-2024 19:49-0400 Body weight 72.[address] Renata Child MD Work Phone: [facility] 02-29-2024 23:02-0400 Body height 152.4 cm ALLISON DÍAZ MD [facility] 02-29-2024 23:02-0400 Body temperature 96.98 [degF] ALLISON DÍAZ MD [facility] 02-29-2024 23:02-0400 Body weight 75 kg ALLISON DÍAZ MD [facility] 02-29-2024 23:02-0400 Diastolic Blood Pressure Non-Invasive 74 mm[Hg] ALLISON DÍAZ MD [facility] 02-29-2024 23:02-0400 Heart rate 66 /min ALLISON DÍAZ MD [facility] 02-29-2024 23:02-0400 Respiratory rate 18 /min ALLISON DÍAZ MD [facility] 02-29-2024 23:02-0400 Systolic Blood Pressure Non-Invasive 116 mm[Hg] ALLISON DÍAZ MD [facility] 12-02-2023 01:34-0400 Diastolic Blood Pressure Non-Invasive 72 mm[Hg] DR ELIE RODARTE MD [facility] 12-02-2023 01:34-0400 Heart rate 72 /min DR ELIE RODARTE MD [facility] 12-02-2023 01:34-0400 Respiratory rate 16 /min DR ELIE RODARTE MD [facility] 12-02-2023 01:34-0400 Systolic Blood Pressure Non-Invasive 116 mm[Hg] DR ELIE RODARTE MD [facility] 12-01-2023 23:28-0400 Body temperature 99.32 [degF] DR ELIE RODARTE MD [facility] 12-01-2023 23:28-0400 Diastolic Blood Pressure Non-Invasive 88 mm[Hg] DR ELIE RODARTE MD [facility] 12-01-2023 23:28-0400 Heart rate 80 /min DR ELIE RODARTE MD [facility] 12-01-2023 23:28-0400 Respiratory rate 16 /min DR ELIE RODARTE MD [facility] 12-01-2023 23:28-0400 Systolic Blood Pressure Non-Invasive 126 mm[Hg] DR ELIE RODARTE MD [facility] 04-16-2023 13:52-0400 Body height 152.4 cm Alla Flores MD Work Phone: [facility] 04-16-2023 13:52-0400 Body weight 80.65 kg Alla Flores MD Work Phone: [facility] 04-16-2023 13:52-0400 Diastolic blood pressure 72 mm[Hg] Alla Flores MD Work Phone: [facility] 04-16-2023 13:52-0400 Systolic blood pressure 112 mm[Hg] Alla Flores MD Work Phone: [facility] 12-20-2022 14:03-0400 Body mass index (BMI) [Ratio] 33.2 kg/m2 Max Merlos MD Work Phone: [employer] 12-20-2022 14:03-0400 Body temperature 97.59 [degF] Max Merlos MD Work Phone: [employer] 12-20-2022 14:03-0400 Body weight 77.11 kg Max Merlos MD Work Phone: [facility] 12-20-2022 14:03-0400 Diastolic blood pressure 70 mm[Hg] Max Merlos MD Work Phone: [facility] 12-20-2022 14:03-0400 Heart rate 105 /min Max Merlos MD Work Phone: [facility] 12-20-2022 14:03-0400 Respiratory rate 16 /min Max Merlos MD Work Phone: [facility] 12-20-2022 14:03-0400 SaO2% (BldA) [Mass fraction] 100 % Max Merlos MD Work Phone: [facility] 12-20-2022 14:03-0400 Systolic blood pressure 126 mm[Hg] Max Merlos MD Work Phone: [facility] 12-16-2022 22:37-0400 Blood Pressure Location ALLISON DÍAZ MD [facility] 12-16-2022 22:37-0400 Body temperature 99.68 [degF] ALLISON DÍAZ MD [facility] 12-16-2022 22:37-0400 Diastolic Blood Pressure Non-Invasive 82 1 ALLISON DÍAZ MD [facility] 12-16-2022 22:37-0400 Heart rate 104 /min ALLISON DÍAZ MD [facility] 12-16-2022 22:37-0400 Respiratory rate 20 /min ALLISON DÍAZ MD [facility] 12-16-2022 22:37-0400 Systolic Blood Pressure Non-Invasive 131 1 ALLISON DÍAZ MD [facility] 09-19-2022 14:47-0400 Body temperature 98.49 [degF] Krislyn Aberegg PA Work Phone: [facility] 09-19-2022 14:47-0400 Body weight 84.01 kg Krislyn Aberegg PA Work Phone: [facility] 09-19-2022 14:47-0400 Diastolic blood pressure 70 mm[Hg] Krislyn Aberegg PA Work Phone: [facility] 09-19-2022 14:47-0400 Heart rate 100 /min Krislyn Aberegg PA Work Phone: [facility] 09-19-2022 14:47-0400 Respiratory rate 18 /min Krislyn Aberegg PA Work Phone: [facility] 09-19-2022 14:47-0400 SaO2% (BldA) [Mass fraction] 98 % Krislyn Aberegg PA Work Phone: [facility] 09-19-2022 14:47-0400 Systolic blood pressure 110 mm[Hg] Krislyn Aberegg PA Work Phone: [facility] 08-07-2022 14:03-0500 Body mass index (BMI) [Ratio] 35.15 kg/m2 Tyrell Bridenthal SITE SAFETY COORDINATOR - ACID CONCENTRATOR Work Phone: [facility] [employer] 08-07-2022 14:03-0500 Body weight 81.65 kg Tyrell Bridenthal SITE SAFETY COORDINATOR - ACID CONCENTRATOR Work Phone: [facility] [employer] 08-07-2022 14:03-0500 Diastolic blood pressure 62 mm[Hg] Tyrell Bridenthal SITE SAFETY COORDINATOR - ACID CONCENTRATOR Work Phone: [facility] [employer] 08-07-2022 14:03-0500 Heart rate 99 /min Tyrell Bridenthal SITE SAFETY COORDINATOR - ACID CONCENTRATOR Work Phone: [facility] [employer] 08-07-2022 14:03-0500 Respiratory rate 16 /min Tyrell Bridenthal SITE SAFETY COORDINATOR - ACID CONCENTRATOR Work Phone: [facility] 08-07-2022 14:03-0500 SaO2% (BldA) [Mass fraction] 96 % Tyrell Delaney SITE SAFETY COORDINATOR - ACID CONCENTRATOR Work Phone: [facility] 08-07-2022 14:03-0500 Systolic blood pressure 94 mm[Hg] Tyrell Delaney SITE SAFETY COORDINATOR - ACID CONCENTRATOR Work Phone: [facility] 07-24-2022 11:11-0500 Body weight 84.37 kg Alla Flores MD Work Phone: [facility] 07-24-2022 11:11-0500 Diastolic blood pressure 76 mm[Hg] Alla Flores MD Work Phone: [facility] 07-24-2022 11:11-0500 Systolic blood pressure 102 mm[Hg] Alla Flores MD Work Phone: [facility] 02-21-2022 18:57-0400 Body temperature 98.42 [degF] DR ELIE RODARTE MD [facility] 02-21-2022 18:57-0400 Body weight 81.[address] ELIE RODARTE MD [facility] 02-21-2022 18:57-0400 Diastolic blood pressure 86 mm[Hg] DR ELIE RODARTE MD [facility] 02-21-2022 18:57-0400 Heart rate 97 /min DR ELIE RODARTE MD [facility] 02-21-2022 18:57-0400 Respiratory rate 16 /min DR ELIE RODARTE MD [facility] 02-21-2022 18:57-0400 Systolic blood pressure 126 mm[Hg] DR ELIE RODARTE MD [facility] 12-26-2021 15:55-0400 Body height 152.[address] Renata Child Work Phone: [facility] Work Phone: 12-26-2021 15:55-0400 Body mass index (BMI) [Ratio] 33.6 kg/m2 Dr. Renata Child Work Phone: [facility] Work Phone: 12-26-2021 15:55-0400 Body temperature 97.5 [degF] Dr. Renata Child Work Phone: [facility] Work Phone: 12-26-2021 15:55-0400 Body weight 78.[address] Renata Child Work Phone: [facility] Work Phone: 12-26-2021 15:55-0400 Diastolic blood pressure 72 mm[Hg] Dr. Renata Child Work Phone: [facility] Work Phone: 12-26-2021 15:55-0400 Heart rate 85 /min Dr. Renata Child Work Phone: [facility] Work Phone: 12-26-2021 15:55-0400 Respiratory rate 12 /min Dr. Renata Child Work Phone: [facility] Work Phone: 12-26-2021 15:55-0400 SaO2% (BldA) [Mass fraction] 98 % Dr. Renata Child Work Phone: [facility] Work Phone: 12-26-2021 15:55-0400 Systolic blood pressure 126 mm[Hg] Dr. Renata Child Work Phone: [facility] Work Phone: 12-08-2021 23:20-0400 Body height 152.4 cm [facility] Work Phone: 12-08-2021 23:20-0400 Body mass index (BMI) [Ratio] 33.2 kg/m2 [facility] Work Phone: 12-08-2021 23:20-0400 Body temperature 97.6 [degF] [facility] Work Phone: 12-08-2021 23:20-0400 Body weight 77.11 kg [facility] Work Phone: 12-08-2021 23:20-0400 Diastolic blood pressure 78 mm[Hg] [facility] Work Phone: 12-08-2021 23:20-0400 Heart rate 82 /min [facility] Work Phone: 12-08-2021 23:20-0400 Respiratory rate 15 /min [facility] Work Phone: 12-08-2021 23:20-0400 SaO2% (BldA) [Mass fraction] 98 % [facility] Work Phone: 12-08-2021 23:20-0400 Systolic blood pressure 110 mm[Hg] [facility] Work Phone: 11-29-2021 10:06-0400 Body weight 78.83 kg Jagruti Alcantar MD Work Phone: [facility] 11-29-2021 10:06-0400 Diastolic blood pressure 62 mm[Hg] Jagruti Alcantar MD Work Phone: [facility] 11-29-2021 10:06-0400 Systolic blood pressure 100 mm[Hg] Jagruti Alcantar MD Work Phone: [facility] 11-28-2021 07:50-0400 Body height 154.9 cm Mcihelle Migue SITE SAFETY COORDINATOR.ACID CONCENTRATOR Work Phone: [facility] 11-28-2021 07:50-0400 Body weight 80.11 kg Michelle [place] SITE SAFETY COORDINATOR.ACID CONCENTRATOR Work Phone: [facility] 11-28-2021 07:50-0400 Diastolic blood pressure 60 mm[Hg] Michelle Migue SITE SAFETY COORDINATOR.ACID CONCENTRATOR Work Phone: [facility] 11-28-2021 07:50-0400 Systolic blood pressure 110 mm[Hg] Michelle [place] SITE SAFETY COORDINATOR.ACID CONCENTRATOR Work Phone: [facility] 08-22-2021 15:42-0500 Body temperature 98.24 [degF] MICHAELA NIELSEN SITE SAFETY COORDINATOR-ACID CONCENTRATOR [facility] 08-22-2021 15:42-0500 Diastolic blood pressure 63 mm[Hg] MICHAELA NIELSEN SITE SAFETY COORDINATOR-ACID CONCENTRATOR [facility] 08-22-2021 15:42-0500 Heart rate 89 /min MICHAELA NIELSEN SITE SAFETY COORDINATOR-ACID CONCENTRATOR [facility] 08-22-2021 15:42-0500 Reason For Taking VItal Signs MICHAELA NIELSEN SITE SAFETY COORDINATOR-ACID CONCENTRATOR [facility] 08-22-2021 15:42-0500 Respiratory rate 20 /min MICHAELA NIELSEN SITE SAFETY COORDINATOR-ACID CONCENTRATOR [facility] 08-22-2021 15:42-0500 Systolic blood pressure 122 mm[Hg] MICHAELA NIELSEN SITE SAFETY COORDINATOR-ACID CONCENTRATOR [facility] 08-22-2021 15:22-0500 Heart rate 100 /min MICHAELA NIELSEN SITE SAFETY COORDINATOR-ACID CONCENTRATOR [facility] 08-22-2021 15:22-0500 Respiratory rate 20 /min MICHAELA NIELSEN SITE SAFETY COORDINATOR-ACID CONCENTRATOR [facility] 08-22-2021 11:08-0500 Heart rate 123 /min MICHAELA NIELSEN SITE SAFETY COORDINATOR-ACID CONCENTRATOR [facility] 08-22-2021 11:08-0500 Respiratory rate 20 /min MICHAELA NIELSEN SITE SAFETY COORDINATOR-ACID CONCENTRATOR [facility] 08-22-2021 09:07-0500 Heart rate 106 /min MICHAELA NIELSEN SITE SAFETY COORDINATOR-ACID CONCENTRATOR [facility] 08-22-2021 06:56-0500 Body temperature 98.24 [degF] MICHAELA NIELSEN SITE SAFETY COORDINATOR-ACID CONCENTRATOR [facility] 08-22-2021 06:56-0500 Diastolic blood pressure 68 mm[Hg] MICHAELA NIELSEN SITE SAFETY COORDINATOR-ACID CONCENTRATOR [facility] 08-22-2021 06:56-0500 Heart rate 101 /min MICHAELA NIELSEN SITE SAFETY COORDINATOR-ACID CONCENTRATOR [facility] 08-22-2021 06:56-0500 Reason For Taking VItal Signs MICHAELA REDDYKevin SITE SAFETY COORDINATOR-ACID CONCENTRATOR [facility] 08-22-2021 06:56-0500 Systolic blood pressure 107 mm[Hg] MICHAELA NIELSEN SITE SAFETY COORDINATOR-ACID CONCENTRATOR [facility] 08-22-2021 03:20-0500 Body temperature 98.06 [degF] MICHAELA NIELSEN APRN-ACID CONCENTRATOR [facility] 08-22-2021 03:20-0500 Diastolic blood pressure 69 mm[Hg] MICHAELA NIELSEN APRN-ACID CONCENTRATOR [facility] 08-22-2021 03:20-0500 Heart rate 112 /min MICHAELA NIELSEN SITE SAFETY COORDINATOR-ACID CONCENTRATOR [facility] 08-22-2021 03:20-0500 Systolic blood pressure 117 mm[Hg] MICHAELA NIELSEN SITE SAFETY COORDINATOR-ACID CONCENTRATOR [facility] 08-21-2021 23:28-0500 Reason For Taking VItal Signs MICHAELA NIELSEN APRN-ACID CONCENTRATOR [facility] 08-21-2021 12:20-0500 Body height 152 cm MICHAELA NIELSEN SITE SAFETY COORDINATOR-ACID CONCENTRATOR [facility] 08-21-2021 12:20-0500 Body weight 80.9 kg MICHAELA NIELSEN SITE SAFETY COORDINATOR-ACID CONCENTRATOR [facility] 08-21-2021 12:20-0500 Body weight 35.02 kg/m2 MICHAELA NIELSEN SITE SAFETY COORDINATOR-ACID CONCENTRATOR [facility] 08-21-2021 12:05-0500 Mean blood pressure 100 mm[Hg] MICHAELA NIELSEN SITE SAFETY COORDINATOR-ACID CONCENTRATOR [facility] Encounters Encounter Date Encounter Type Care Provider Facility Start: 11-25-2024 End: 11-25-2024 Emergency department patient visit Dr. Renata Child MD Work Phone: -Emergency Department Work Phone: Start: 02-29-2024 End: 02-29-2024 Emergency department patient visit ALLISON DÍAZ MD [facility] Start: 02-22-2024 End: 02-22-2024 Emergency department patient visit Renata Child Facility:[facility] Start: 12-01-2023 End: 12-02-2023 Emergency department patient visit DR ELIE RODARTE MD [facility] Start: 04-24-2023 ambulatory Alla Hoffman Work Phone: OB/Gynecology Comment on above: To try clomid Start: 04-16-2023 End: 04-17-2023 ambulatory ALLA FLORES Facility:[facility] Start: 04-16-2023 Encounter for gynecological examination (general) (routine) without abnormal findings ALLA FLORES [facility] Start: 04-16-2023 End: 04-16-2023 Patient encounter procedure Alla Flores MD Work Phone: OB/Gynecology Comment on above: Encounter for gyneco logical examination (general) (routine) without abnormal findings (Primary Dx); Screening for cervical cancer; Special screening examination for human papillomavirus (HPV) Start: 04-16-2023 End: 04-16-2023 Patient encounter status Alla Flores MD Work Phone: [facility] Start: 04-11-2023 End: 04-12-2023 ambulatory ALLA FLORES Facility:[facility] Start: 03-25-2023 Refill Alla Hoffman Work Phone: OB/Gynecology Comment on above: Refill Request Start: 02-21-2023 Refill Viktoriya castañeda APRN.CNM Work Phone: OB/Gynecology Comment on above: Refill Request Start: 12-20-2022 End: 12-21-2022 [facility] Start: 12-20-2022 End: 12-20-2022 Subsequent hospital visit by physician [facility] Xr Portable [facility] Radiology Comment on above: Arrived Start: 12-20-2022 End: 12-20-2022 Emergency department patient visit Max Merlos MD Work Phone: [facility] ED Comment on above: Acute pain of right lower extremity (Primary Dx); Acute right ankle pain Start: 12-16-2022 End: 12-16-2022 Emergency department patient visit ALLISON DÍAZ MD [facility] Start: 10-30-2022 Telephone encounter Alla fuchs MD Work Phone: OB/Gynecology Comment on above: Results Start: 10-26-2022 End: 10-27-2022 ambulatory [facility] Facility:[facility] Start: 09-20-2022 Telephone encounter Alla fuchs MD Work Phone: OB/Gynecology Comment on above: Patient Question Start: 09-19-2022 End: 09-19-2022 ambulatory [facility] Facility:[facility] Start: 09-19-2022 End: 09-19-2022 Patient encounter procedure Morales ESPINOZA Work Phone: [facility] Comment on above: COVID (Primary Dx); Nasal congestion Start: 09-11-2022 Telephone encounter Alla fuchs MD Work Phone: OB/Gynecology Comment on above: Results Start: 09-10-2022 End: 09-11-2022 ambulatory [facility] Facility:[facility] Start: 08-07-2022 End: 08-07-2022 [facility] Start: 08-07-2022 End: 08-07-2022 Office outpatient visit 10 minutes Tyrell Bridenthal SITE SAFETY COORDINATOR - ACID CONCENTRATOR Work Phone: [facility] Comment on above: Plantar fasciitis (P rimary Dx) Start: 07-24-2022 End: 07-24-2022 ambulatory ALLA FLORES Facility:[facility] Start: 07-24-2022 End: 07-24-2022 Patient encounter procedure Alla Flores MD Work Phone: OB/Gynecology Comment on above: PCOS (polycystic ova rajendra syndrome) (Primary Dx); Anovulation Start: 03-09-2022 ambulatory UNKNOWN PROVIDER [facility] Start: 03-09-2022 End: 03-09-2022 Subsequent hospital visit by physician Montse Child MD Work Phone: [facility] Neuro Comment on above: Arrived Start: 02-23-2022 ambulatory UNKNOWN PROVIDER [facility] Start: 02-21-2022 End: 02-21-2022 Emergency department patient visit DR ELIE RODARTE MD [facility] Start: 12-26-2021 End: 12-26-[address] Renata Child Work Phone: [facility] Start: 12-08-2021 End: 12-09-2021 Emergency department patient visit [facility] Start: 12-04-2021 Telephone encounter Viktoriya colunga SITE SAFETY COORDINATOR.CNM Work Phone: OB/Gynecology Comment on above: Patient Question Start: 11-29-2021 End: 11-29-2021 Patient encounter procedure Jagruti Alcantar MD Work Phone: OB/Gynecology Comment on above: Irregular menstrual cycle (Primary Dx); PCOS (polycystic ovarian syndrome) Start: 11-28-2021 End: 11-28-2021 Patient encounter procedure Michelle Camarena SITE SAFETY COORDINATOR.ACID CONCENTRATOR Work Phone: OB/Gynecology Comment on above: Encounter for gyneco logical examination (general) (routine) without abnormal findings (Primary Dx) Start: 11-28-2021 End: 11-28-2021 Patient encounter status Michelle Camarena ACID CONCENTRATOR Work Phone: OB/Gynecology Start: 08-21-2021 End: 08-22-2021 Observation MICHAELA NIELSEN APRN-ACID CONCENTRATOR [facility] Start: 03-09-2019 End: 03-09-2019 Subsequent hospital visit by physician Montse Child Work Phone: [facility] Radiology Comment on above: Acute foot pain, rig ht Procedures Date Procedure Procedure Detail Performing Clinician Start: 11-25-2024 Computed tomography of abdomen and pelvis with intravenous contrast Dr. Renata Child MD Work Phone: Start: 11-25-[address] Renata Child MD Work Phone: Start: 12-20-2022 Radex ankle complete minimum 3 views Max Merlos MD Work Phone: Start: 12-20-2022 Dup-scan xtr veins unilateral/limited study Max Merlos MD Work Phone: Start: 12-26-2021 X-ray of lumbosacral spine Dr. Renata Child Work Phone: Start: 03-09-2019 Radiologic examinati on foot 2 views Montse Child Work Phone: Cholecystectomy MICHAELA Brown APRN-ACID CONCENTRATOR Plan of Treatment Date Care Activity Detail Author Start: 2045 Zoster Vaccines (1 o f 2) Zoster Vaccines (1 of 2) [facility] Start: 08-17-2030 DTaP/Tdap/Td vaccine (4 - Td or Tdap) DTaP/Tdap/Td vaccine (4 - Td or Tdap) [facility] Start: 08-17-2030 DTaP/Tdap/Td Vaccine s (4 - Td or Tdap) DTaP/Tdap/Td Vaccines (4 - Td or Tdap) [facility] Start: 08-17-2030 Urine microalbumin profile [facility] Start: 10-11-2027 DTaP/Tdap/Td vaccine (2 - Td) DTaP/Tdap/Td vaccine (2 - Td) [place] Start: 04-16-2026 Pap Testing Pap Testing [facility] Start: 11-25-2024 [facility] Start: 12-17-2023 PAP TESTING PAP TESTING [facility] Start: 03-01-2023 Covid-19 Vaccine () Covid-19 Vaccine () [facility] Start: 03-01-2023 Influenza vaccination [facility] Start: 02-22-2023 End: 04-24-2023 Progesterone [Mass/volume] in Serum or Plasma PROGESTERONE BLD Lab Routine Anovulation Expected: 02/22/2023, Expires: 04/24/2023 [facility] Work Phone: Comment on above: Expected: 02/22/2023 , Expires: 04/24/2023 Start: 10-12-2022 End: 12-12-2022 Progesterone [Mass/volume] in Serum or Plasma PROGESTERONE BLD Lab Routine Anovulation PCOS (polycystic ovarian syndrome) Expected: 10/12/2022, Expires: 12/12/2022 [facility] Work Phone: Comment on above: Expected: 10/12/2022 , Expires: 12/12/2022 Start: 07-24-2022 End: 09-23-2022 Progesterone [Mass/volume] in Serum or Plasma PROGESTERONE BLD Lab Routine PCOS (polycystic ovarian syndrome) Anovulation Expected: 07/24/2022, Expires: 09/23/2022 [facility] Work Phone: Comment on above: Expected: 07/24/2022 , Expires: 09/23/2022 Start: 07-01-2022 DEPRESSION ASSESSMENT DEPRESSION ASS ESSMENT [facility] Start: 06-18-2022 End: 06-18-2022 Patient encounter procedure 06/18/2022 Office Visit Family Medicine Montse Child MD [address] [place] [address] [phone] (Work) [facility] Start: 06-06-2022 End: 06-06-2022 Patient encounter procedure 06/06/2022 Office Visit Family Medicine Montse Child MD [address] [place], [place] [id number] [facility] Start: 03-01-2022 Influenza vaccination C [facility] Start: 11-29-2021 End: 01-29-2022 17-Hydroxyprogesterone [Mass/volume] in Serum or Plasma [facility] Work Phone: Comment on above: Expected: 11/29/2021 , Expires: 01/29/2022 Start: 08-07-2021 COVID-19 VACCINE (3 - Booster for Pfizer series) COVID-19 VACCINE (3 - Booster for Pfizer series) [facility] Start: 05-02-2021 COVID-19 VACCINE (3 - Booster for Pfizer series) COVID-19 VACCINE (3 - Booster for Pfizer series) [facility] Start: 05-02-2021 COVID-19 VACCINE (3 - Pfizer series) COVID-19 VACCINE (3 - Pfizer series) [facility] Start: 04-02-2019 End: 04-02-2019 Office Visit 04/02/2019 Office Visit Family Medicine Montse Child MD [address], [place] [id number] [facility] Start: 03-10-2019 End: 03-10-2019 Office Visit 03/10/2019 Office Visit Sports Medicine [facility] [place] Start: 03-01-2019 Influenza vaccination Flu vaccine (# 1) [place], [place] Start: 2016 Cervical cancer screen Cervical canc er screen [place], [place] Start: 2016 Screening for malignant neoplasm of cervix Pap smear [facility] Start: 2013 ANNUAL PCP TEAM CHRONIC DISEASE VISIT ANNUAL PCP TEAM CHRONIC DISEASE VISIT [facility] Start: 2013 Hepatitis C screening [facility] Start: 2013 SPIROMETRY SPIROMETRY [facility] Start: 2011 Chlamydia screen Chlamydia screen [place], [place] Start: 2010 HIV screen HIV screen [place], [place] Start: 2010 HIV screening HIV screen [facility] Start: 2010 HPV vaccine (1 - Female 3-dose series) HPV vaccine (1 - Female 3-dose series) [place] Start: 2009 PEDS TO ADULT TRANSITION ANNUAL ASSESSMENT PEDS TO ADULT TRANSITION ANNUAL ASSESSMENT [facility] Start: 2008 Varicella Vaccine (1 of 2 - 13+ 2-dose series) Varicella Vaccine (1 of 2 - 13+ 2-dose series) [place] Start: 2007 Adult depression screening assessment DEPRESSION SCREENING [facility] Start: 2007 Depression Screen Depression Screen [facility] Start: 2007 PEDS TO ADULT TRANSITION INITIAL DISCUSSION PEDS TO ADULT TRANSITION INITIAL DISCUSSION [facility] Start: 2006 HPV VACCINE (1 - 2-dose series) HPV VACCINE (1 - 2-dose series) [facility] Start: 2006 HPV Vaccines (1 - 2-dose series) HPV Vaccines (1 - 2-dose series) [facility] Start: 2001 PNEUMOCOCCAL (1 - PCV) PNEUMOCOCCAL (1 - PCV) [facility] Start: 2001 Pneumococcal vaccination Pneumococcal Vaccine (1 - PCV) [facility] Start: 11-25-2000 Varicella vaccination Varicell a Vaccines (1 of 2 - 2-dose childhood series) [facility] Start: 1996 Varicella vaccine (1 of 2 - 2-dose childhood series) Varicella vaccine (1 of 2 - 2-dose childhood series) [facility] Start: 1995 HEPATITIS B (1 of 3 - 3-dose series) HEPATITIS B (1 of 3 - 3-dose series) [facility] Start: 1995 Hepatitis B Vaccine (1 of 3 - 3-dose series) Hepatitis B Vaccine (1 of 3 - 3-dose series) [facility] Start: 1995 Hepatitis B Vaccines (1 of 3 - 3-dose series) Hepatitis B Vaccines (1 of 3 - 3-dose series) [facility] Start: 1995 HIV screening HIV Screening [facility] ariadna PAP TEST PAP TEST Lab [facility] Encounter for gynecological examination (general) (routine) without abnormal findings Screening for cervical cancer Special screening examination for human papillomavirus (HPV) 04/16/2023 2:28 PM EDT [facility] Work Phone: Patient Education [facility] Work Phone: Patient referral [facility] Work Phone: [facility] Immunizations Immunization Date Immunization Notes Care Provider Fa cili 03-07-2021 SARS-CoV-2 mRNA (tozinameran) vaccine MICHAELA NIELSEN SITE SAFETY COORDINATOR-ACID CONCENTRATOR [facility] Comment on above: Result Comment: 2021: TPVAL 02-08-2021 SARS-CoV-2 mRNA (tozinameran) vaccine MICHAELA NIELSEN SITE SAFETY COORDINATOR-ACID CONCENTRATOR [facility] Comment on above: Result Comment: 2021: TPVAL 08-17-2020 RHO(D) immune globul in- IV or IM Michelle Migue TORRESACID CONCENTRATOR Work Phone: [facility] 08-17-2020 tetanus toxoid, redu ezio diphtheria toxoid, and acellular pertussis vaccine, adsorbed MICHAELA NIELSEN SITE SAFETY COORDINATOR-ACID CONCENTRATOR [facility] 10-10-2017 tetanus toxoid, redu ezio diphtheria toxoid, and acellular pertussis vaccine, adsorbed; Translations: [Boostrix (Tdap)] MICHAELA NIELSEN SITE SAFETY COORDINATOR-ACID CONCENTRATOR [facility] 07-12-2014 influenza virus vaccine, unspecified formulation MICHAELA NIELSEN SITE SAFETY COORDINATOR-ACID CONCENTRATOR [facility] 04-10-2013 influenza virus vaccine, unspecified formulation MICHAELA NIELSEN SITE SAFETY COORDINATOR-ACID CONCENTRATOR [facility] 10-28-2000 measles/mumps/rubell a virus vaccine MICHAELA NIELSEN SITE SAFETY COORDINATOR-ACID CONCENTRATOR [facility] 10-28-2000 poliovirus vaccine, inactivated MICHAELA NIELSEN SITE SAFETY COORDINATOR-ACID CONCENTRATOR [facility] Payers Date Payer Category Payer Self-pay [id number] 2022 Unknown [id number] 2022 Unknown 2022 Medicaid [id number] 2018 Medicaid [employer] [id number] 2018-Present [phone] [address] [place] [address] Medicaid [id number] 2018 Medicaid [id number] 2018 Unknown [employer] [facility] MEDICAID xxxxxxxxxxx 2018-Present [phone] CLAIMS DEPARTMENT [address] [place] [address] xxxxxxxxxxx [id number] 2018 Unknown [id number] 1995 Unknown [id number] 1995 Unknown [id number] 1995 Unknown [id number] 1995 Unknown [id number] Unknown [id number] Unknown [id number] Unknown [id number] Social History Date Type Detail Facility Start: 03-09-2019 Tobacco smoking status NHIS Never smoker [facility] Start: 03-09-2019 End: 08-07-2022 Alcohol intake Not Asked [place], [place] Start: 1995 Sex Assigned At Not on file [place] Start: 08-21-2021 End: 09-19-2022 Ex-smoker (finding) [facility] Start: 1995 Sex Assigned At Female A [facility] Start: 05-09-2020 End: 09-19-2022 Tobacco use and exposure Smokeless tobacco non-user [facility] Work Phone: Start: 11-28-2021 End: 04-16-2023 Alcohol intake Ex-drinker (finding) [facility] Start: 11-18-2021 End: 12-20-2022 Exposure to SARS-CoV-2 (event) Not sure [facility] Work Phone: Start: 12-08-2021 End: 12-26-2021 Tobacco smoking status CTIS Unknown if ever smoked [facility] Work Phone: Start: 09-09-2019 Cigarettes [facility] Start: 02-23-2022 End: 08-07-2022 Alcohol intake [facility] Work Phone: History of tobacco use Current smoker [facility] Work Phone: Start: 12-20-2022 Alcohol intake Current drinke r of alcohol (finding) [facility] Start: 08-07-2022 End: 02-08-2023 Tobacco use panel [facility] Start: 12-20-2022 Alcohol Comment occasionally [facility] ealt National Score (1-100), lower number is lower risk 57 [facility] Start: 11-25-2024 Tobacco smoking status NHIS Current some day smoker [facility] Medical Equipment Procedure Code Equipment Code Equipment Original Text Equipment Identifier Dates Total cholecystectomy with exploration of common bile duct CLIP,HEMOLOCK MED WECK FDA Start: 07-17-2019 Total cholecystectomy with exploration of common bile duct CLIP,HEMOLOCK 4-Tell WECK FDA Start: 07-17-2019 Total cholecystectomy with exploration of common bile duct CLIP,HEMOLOCK MED WECK FDA Start: 07-17-2019 Total cholecystectomy with exploration of common bile duct CLIP,HEMOLOCK MED WECK FDA Start: 07-17-2019 Total cholecystectomy with exploration of common bile duct CLIP,HEMOLOCK MED WECK FDA Start: 07-17-2019 Total cholecystectomy with exploration of common bile duct CLIP,HEMOLOCK MED WECK FDA Start: 07-17-2019 Functional Status Date Assessment Result Facility 02-29-2024 Functional Status Up ad eliane [facility] 12-02-2023 Functional Status Independent [facility] 12-01-2023 Functional Status Standard Safet y ID band on, Allergy Band on, Call device within reach, Bed in low position, Wheels locked, Upper/Half-Length side-rails up, Phone within reach, Safety level maintained [facility] 12-16-2022 Functional Status ID band on, Allergy Band on, Call device within reach, Bed in low position, Wheels locked, Upper/Half-Length side-rails up, Phone within reach, personal items within reach, Bedside Cart Locked, Visitor at bedside [facility] Mental Status Date Assessment Result Facility 02-29-2024 Mental Status Oriented x 4 [facility] 12-02-2023 Mental Status Orientation Oriented x 4 [facility] 12-01-2023 Mental Status [facility] 12-16-2022 Mental Status Oriented x 4 [facility] 02-21-2022 Mental Status Orientation Oriented x 4 [facility] 02-21-2022 Mental Status [facility] Clinical Notes 08-18-2020 to 11-25-2024 Note Date & Type Note Facility 11-25-2024 Discharge summary [facility] 11-25-2024 Radiology Diagnostic study note [facility] Imaging Services [address] [place] [address] Abdomen/Pelvis W IV Cont ONLY MR#: [id number] Acct: [id number] Name: DESIRE MAY Rep #: [id number] : 1995 F 29 From: Ike Dennis MD PCP: Dr. Renata Child MD Status: REG ER Study:Abdomen/Pelvis W IV Cont ONLY Date of E xam: 11/25/24 Exam# [id number] Ordering Dr: Vianey Hare MD PROCEDURE: ABDOMEN/PELVIS W IV CONT ONLY 11/25/2024 REASON FOR EXAM: RIGHT LOWER QUADRANT ABDOMINAL PAIN, HISTORY OF PC TECHNIQUE: Abdomen and pelvis CT with intravenous contrast. Coronal and Sagittal reconstruction series were provided. CONTRAST: Isovue 370 VOLUME: 94 mL. One or more dose reduction techniques were used (e.g., Automated exposure control, adjustment of the mA and/or kV according to patient size, use of iterative reconstruction technique. RADIATION DOSE SUMMARY: CTDlvol: 9.97+ 12.85 mGy DLP: 716.15 mGycm COMPARISON: None. FINDINGS: Right breast 13 mm nodule. Lung bases: Clear. Liver: Normal size. No mass. Gallbladder: Surgically absent. Spleen: Normal size. Pancreas: Normal size without evidence of mass surrounding inflammation or ductal dilation. Adrenals: Normal. Kidneys: Normal renal sizes. No hydronephrosis. Bladder: Normal. Reproductive Organs: Right ovarian 3.7 cm and left ovarian 4.1 cm cysts. Bowel: Dense colonic stool. Normal caliber large and small bowel. Appendix: Normal caliber. No inflammatory change. Lymph nodes: Unremarkable. Vasculature: The abdominal aorta and IVC are normal. Peritoneum / Retroperitoneum: Normal. Bones: Unremarkable. CT/Abdomen/Pelvis W IV Cont ONLY IMPRESSION: Bilateral ovarian cysts, within the physiologic size range for the patient's age. If there is clinical concern for torsion, consider ultrasound. Normal caliber appendix. Dense colonic stool which may suggest constipation. Right breast 13 mm nodule. Correlate with mammography. Reading Location: [id number] CC: Dr. Renata Child MD; Dr. [place] Hare MD ~ [employer]: Signed [facility] 11-25-2024 Discharge summary Note Date/Time November 25, 2024 11:04pm [facility] Medical Records Department [address] [place] [id number] Emergency Department Summary 11/25/24 MR#: [id number] Acct: [id number] Name: DESIRE MAY Rep #:[id number] : 1995 29 From: [place] Hare MD PCP: Dr. Renata Child MD Status: REG ER Location: ED HPI History of Present Illness Chief Complaint: Abd Pain Detail of Chief Complaint: Acute abrupt right lower quadrant abdominal pain Informant: patient Onset/Context/Timing Onset: Today and Hours Context: Sudden Onset Timing: Continuous and Waxes and wanes Quality: Pain Location: Right lower quadrant Current Severity: Mild Maximum Severity: Severe Worsened by: Lying on right side Relieved by: Markedly better patient sits on her left hip Associated Symptoms Associated Symptoms: Initially had nausea Narrative Narrative: Patient is a 29-year-old G1, P1 female who presents with abrupt onset of right lower quadrant abdominal pain. Patient denies fever, chills night sweats. She does endorse nausea without vomiting or diarrhea. She denies dysuria, frequency, urgency or hematuria. Patient has irregular periods due to polycystic ovarian syndrome. Patient denies shoulder pain. Patient denies orthostatic symptoms. There is no history of trauma. She denies anorexia. Prior similar symptoms: No Recent Illness/Hospitalization: No PFSH PFSH Medical History Bipolar disorder Anxiety Depression Smoker Migraines URI (upper respiratory infection) Polycystic ovarian syndrome Acute cholecystitis Asthma Nausea & vomiting Diarrhea Abdominal pain Acute cholecystitis Home Medications ?Medication ?Instructions ?Recorded ?Last Taken ?Type albuterol sulfate 90 mcg/actuation 1 - 2 puff inhalati on Q6H PRN PRN 09/09/19 1 Month Ago History aerosol inhaler Asthma ~10/12/20 metoclopramide HCl 5 mg tablet 5 mg PO Q8 #10 tabs Unknown Rx (Reglan) Allergy/AdvReac Type Severity Reaction Status Date / Time guaifenesin (From Robitussin) Allergy Intermediate elevated Verified 11/25/24 19:49 heart rate Family History Grandmother Asthma Aunt Diabetes Uncle Diabetes Grandfather Diabetes Mother Hypertension Surgical History History of cholecystectomy History of surgery S/P laparoscopic cholecystectomy Social History Smoking Status: Current some day smoker tobacco type: e-cigarettes alcohol intake: current alcohol intake frequency: a few times a month substance use type: does not use ROS ROS ED Constitutional Constitutional ED: Denies chills, fever(s), subjective, sweats or weight loss Cardiovascular Cardiovascular: Denies chest pain or palpitations Respiratory/Chest Respiratory/Chest: Denies cough, dyspnea or dyspnea on exertion Gastrointestinal Gastrointestinal: Reports abdominal pain and nausea; Denies constipation, diarrhea, melena or vomiting Genitourinary Genitourinary ED: Denies dysuria, hematuria or urinary frequency Musculoskeletal Musculoskeletal: Denies arthralgias, back pain, myalgias or neck pain Integumentary Denies rash Neurologic Neurologic: Denies headache(s) or paresthesias Psychiatric Psychiatric: Denies depression Hematologic/Lymphatic Hematologic/Lymphatic: Reports systems reviewed and no addt'l complaints, exceptas documented EXAM Physical Exam Const Vital Signs: 11/25/24 19:49 11/25/24 21:48 Temperature 97.8 F Temperature Source Temporal Pulse Rate 89 80 Respiratory Rate 16 18 Blood Pressure 134/89 H 120/87 H Blood Pressure Mean 104 98 Pulse Ox 98 98 Oxygen Delivery Method Room Air Positive well nourished and well developed Constitutional Narrative: Patient appears slightly uncomfortable. She is leaning on the her left side that she is reading a book. General Appearance ED: well developed; Negative for cyanotic, diaphoretic or pallor HEENT Reports moist mucous membranes HEENT Narrative: Head is atraumatic normocephalic. Ears normal. Nares patent. Patient does have piercings. Eyes PERRL and EOMs intact bilaterally General Eye ED: Negative for pale conjunctiva or scleral icterus Neck no lymphadenopathy, supple and no JVD Chest Wall inspection of chest normal and palpation of chest normal Resp normal respiratory effort and clear to auscultation bilaterally Cardio regular rate, regular rhythm, S1 normal heart sound, S2 normal heart sound and no murmurs GI normal to inspection, nondistended, normoactive bowel sounds, non-distended and no masses; Negative for non-tender or hepatosplenomegaly Auscultation: hypoactive bowel sounds Palpation: soft, tender RLQ and guarding RLQ; Negative for splenomegaly, mass orrebound tenderness present Narrative: There is no CVA tenderness. There is no suprapubic discomfort. Back/Spine no CVA tenderness Extremity normal to inspection General Extremety ED: Negative for edema General Extremity: Negative for edema Neuro oriented x3 and CN's II-XII intact bilaterally Sensorium / Orientation: alert Psych mental status grossly normal Skin no rashes or lesions noted, no wounds and skin turgor normal General Skin Exam: elasticity normal; Negative for jaundice or pallor MDM MDM MDM Narrative Medical decision making narrative: Differential diagnosis would include ruptured ovarian cyst, ectopic , appendicitis, mesenteric adenitis, abdominal pain of unknown etiology. Since patient has no diarrhea doubt inflammatory bowel disorder. Workup included CT appropriate blood work. Patient was medicated with morphine for her pain. History & Record Review Additional record(s) reviewed:: Prior inpatient record (Delivery note by Dr. Tyrell Bella October 2020. Gestation 40 weeks.), Prior outpatient record ([facility]gent[facility] visit for upper respiratory infection May 2022. And November 2021 for muscle strain.) and Prior ED visit (ER visit January 2024 for headache.) Lab Data Attestation: I reviewed the patient's lab results. Lab results narrative: White count is normal. Electrolyte panel is unremarkable. BUN to creatinine ratio slightly elevated 30-1. BUN is only 22. Glucose is slightly evaded 104. Serum test was negative. Labs: Laboratory Results - last 24 hr 11/25/24 20:05 WBC 8.3 RBC 5.37 Hgb 15.4 H Hct 45.4 MCV 84.5 MCH 28.7 MCHC 33.9 RDW Std Deviation 35.6 RDW Coeff of Alber 11.8 Plt Count 311 MPV 10.7 Immature Gran % (Auto) 0.200 Neut % (Auto) 52.4 Lymph % (Auto) 37.5 Motley % (Auto) 6.0 Eos % (Auto) 3.1 Baso % (Auto) 0.8 Absolute Neuts (auto) 4.4 Absolute Lymphs (auto) 3.13 Nucleated RBC % 0 Sodium 138 Potassium 4.0 Chloride 105 Carbon Dioxide 23.5 Anion Gap 10 BUN 22 H Creatinine 0.71 Estim Creat Clear Calc 106.18 Est GFR (MDRD) Non-Af 118 BUN/Creatinine Ratio 30.5 H Glucose 104 H Calcium 9.2 Total Bilirubin 0.19 AST 16 ALT 13 Alkaline Phosphatase 76 Total Protein 7.1 Albumin 4.3 Globulin 2.8 Albumin/Globulin Ratio 1.5 Lipase 27 Serum , Qual NEGATIVE Radiography Diagnostic Testing: Clinical Impression(s) from Imaging Studies Abdomen/Pelvis CT 11/25/24 21:50 IMPRESSION: Bilateral ovarian cysts, within the physiologic size range for the patient's age. If there is clinical concern for torsion, consider ultrasound. Normal caliber appendix. Dense colonic stool which may suggest constipation. Right breast 13 mm nodule. Correlate with mammography. Reading Location: [place] [address] Patient noted to have significant bilateral ovarian cysts. There is no free fluid noted. Appendix on my review was unremarkable. Patient does have a significant mount of fecal material noted. The radiology report was reviewed. Of note and patient will need follow-up she has a right breast nodule that is 13 mm. Recommends mammogram. Will have her follow-up with her doctor. Treatment and Re-Evaluation :: Patient was informed of her CAT scan results and concern regarding breast nodule. There is a paternal family history of breast cancer. Discharge Plan Triage Chief Complaint: Abd Pain ED Provider: Martin Hare Dx/Rx/DC Orders Clinical Impression: Acute right lower quadrant pain, Obstipation, Breast mass, right, PCOD (polycystic ovarian disease) Instructions: ED Abdominal Pain Unkn Cause Fem, ED Breast Lump, Uncertain Cause, ED Constipation (Adult) Prescriptions: No Action albuterol sulfate 1 INHALER inhaler 1 - 2 puff inhalation Q6H PRN PRN (Reason: Asthma) metoclopramide HCl [Reglan] 5 mg tablet 5 mg PO Q8 Qty: 10 0RF Primary Care Provider: Renata Child Referrals: Renata Child MD [Primary Care Provider] - 3-5 Days Activity Restrictions/Additional Instructions: 1. Call your doctor for outpatient follow-up of the breast nodule/mass. In light of your age you will probably need an ultrasound. 2. MiraLAX 1 cap in full glass of fluids 3 times a day for the next week Print Language: [place] Citizen Disposition Disposition: Home, Self Care What to do if you have Problems For any increased pain, shortness of breath, bleeding, nausea or vomiting, chestpain, or any unexpected problems, contact your Primary Care Provider. Call [facility] ([phone]) or report to the closest Emergency Room. Call 911 if necessary. 11/25/242303 <Electronically signed by Martin Hare MD> Cosigner Signature (if applicable): CC: Dr. Renata Child MD ~ Signed [facility] Work Phone: [phone]) 946-823609-01-2024 Hospital Discharge instructions Patient Education 02/29/2024 23:15:45 Conjunctivitis, Non-Specific Conjunctivitis, Nonspecific The membrane that covers the white part of your eye (the conjunctiva) is inflamed. Inflammation happens when your body responds to an injury, allergic reaction, infection, or illness. Symptoms of inflammation in the eye may include redness, irritation, itching, swelling, or burning. These symptoms should go away within the next 24 hours. Conjunctivitis may be related to a particle that was in your eye. If so, it may wash out with your tears or irrigation treatment. Being exposed to liquid chemicals or fumes may also cause this reaction. Home care Apply a cold pack over the eye for 20 minutes at a time. This will reduce pain. To make a cold pack, put ice cubes in a plastic bag that seals at the top. Wrap the bag in a clean, thin towel or cloth. Artificial tears may be prescribed to reduce irritation or redness. These should be used 3 to 4 times a day. You may use acetaminophen or ibuprofen to control pain, unless another medicine was prescribed. (Note: If you have chronic liver or kidney disease, or if you have ever had a stomach ulcer or gastrointestinal bleeding, talk with your healthcare provider before using these medicines.) Follow-up care Follow up with your healthcare provider, or as advised. When to seek medical advice Call your healthcare provider right away if any of these occur: Increased eyelid swelling Increased eye pain Increased redness or drainage from the eye Increased blurry vision or increased sensitivity to light Failure of normal vision to return within 24 to 48 hours 5723-0096 [employer]. [address] [place] [address]. All rights reserved. This information is not intended as a substitute for professional medical care. Always follow yourhealthcare professional's instructions. Follow Up Care 02/29/2024 23:00:01 With:[facility] Address: [address] [place] [id number] When:2-4 days [facility] 08-31-2024 Note Discharge Instructions Thank you for allowing [facility] to assist you with your healthcare needs. The following is importantdischarge information regarding your hospital visit. Diagnosis from Today's Visit Conjunctivitis What to Do Next Instructions from Your Care Team Regarding the eye drop provided: Local anaesthetic drops can damage the surface of the eye if they are used too much or too often. You may use one drop to the affected eye every 2 hours for 24 hours only. After that time, please stop using. No qualifying data available. Post Acute Orders No qualifying data available. You Need to Schedule the Following Appointments Follow Up with [facility] When:Within 2-4 days Where:[address] [place] [id number] Allergies Robitussin Racing heartbeat Medications Please ask your primary doctor or pharmacist before taking any other medication not listed, including over the counter drugs, herbal medications, vitamins and or supplements as they may interact withyour home medications. What How Much When Instructions Last Dose New ciprofloxacin ophthalmic (ciprofloxacin 0.3% ophthalmic solution) 1 Drops Right eye Every 4 hours Duration: 5 Days Printed Prescription Unchanged albuterol (ProAir HFA MDI (90 mcg/ inh) inhalation aerosol) 2 puff(s) by inhalation Every 4 hours as needed for as needed for wheezing Unchanged budesonide (Pulmicort Flexhaler 90 mcg/ inh inhalation powder) 1 puff(s) by inhalation Two (2) times a day Please take this list to your next doctor s visit. Bring all medications you take, including over the counter medications, herbals and other supplements with you to your doctor s visit. Patients and families are reminded to discard old lists and to update any records with all medication providers or retail pharmacies. Education Materials Conjunctivitis, Nonspecific The membrane that covers the white part of your eye (the conjunctiva) is inflamed. Inflammation happens when your body responds to an injury, allergic reaction, infection, or illness. Symptoms of inflammation in the eye may include redness, irritation, itching, swelling, or burning. These symptoms should go away within the next 24 hours. Conjunctivitis may be related to a particle that was in your eye. If so, it may wash out with your tears or irrigation treatment. Being exposed to liquid chemicals or fumes may also cause this reaction. Home care Apply a cold pack over the eye for 20 minutes at a time. This will reduce pain. To make a cold pack, put ice cubes in a plastic bag that seals at the top. Wrap the bag in a clean, thin towel or cloth. Artificial tears may be prescribed to reduce irritation or redness. These should be used 3 to 4 times a day. You may use acetaminophen or ibuprofen to control pain, unless another medicine was prescribed. (Note: If you have chronic liver or kidney disease, or if you have ever had a stomach ulcer or gastrointestinal bleeding, talk with your healthcare provider before using these medicines.) Follow-up care Follow up with your healthcare provider, or as advised. When to seek medical advice Call your healthcare provider right away if any of these occur: Increased eyelid swelling Increased eye pain Increased redness or drainage from the eye Increased blurry vision or increased sensitivity to light Failure of normal vision to return within 24 to 48 hours 3601-2902 [employer]. [address] [place] [address], [place] [address]. All rights reserved. This information is not intended as a substitute for professional medical care. Always follow yourhealthcare professional's instructions. Additional Information VACCINATE! IT SAVES LIVES! Members of the community who have not yet received the COVID-19 vaccine and would like to receive it can visit one of [facility] vaccine clinics. There are many vaccine clinic locations within the [facility]. For locations and available times, please visit www.gettheshot.coronavirus.[place].gov/. It is important to note that some COVID mobile vaccine clinics are held outdoors and may be canceled in rainy or stormy conditions. To learn more about pediatric vaccinations (ages 5-11), we invite you to visit the [facility] webpage. https://www.[employer]Decision [employer]ves.org/pages/5888-Inqfc-Qafsdottvjs-Dahdctgnwa-Vjmfn-Dwr stions.htmlTo learn more about the COVID-19 vaccine, we invite you to visit the CDC website for a list of frequently asked questions. https://www.cdc.gov/coronavirus/2019-ncov/vaccines/faq.html [facility] Patient Portal Access Instructions: Stay connected with your healthcare team and access your personal medical information anytime with the [facility] Patient Portal. If you would like a full copy of your medical records please contact the [facility] Medical Records Department Saturday through Saturday between 8a.m. and 4:30p.m. Please follow the directions below to access the portal: 1.Access the email account you provided upon registration to the hospital.2.Look for an invitation email from [facility].3.Open the email and access the invitation link: Accept Invitation to [facility]4.Fill in the required mckeon to create your account. Sign into [email or web address] with your username and password that you created in the above steps to stay up to date. You can then view a summary of results, a summary of your visits, and the ability to download your summaries to your computer or send the information securely to a physician. Remember that your healthcare information is confidential, so carefully consider who you will allow to register on the [facility] Patient Portal for access to your information. You can also access the [facility] Patient Portal on the [employer]. Simply click on Health Records under [employer] and then click on the [employer] logo. HOW TO SAFELY DISPOSE OF PRESCRIPTION MEDICATIONS Please use one of the following methods to safely dispose of your unused medications. 1.Use a drug disposal kit: the drug disposal pouch allows you to safely discard your old and unuseddrugs. Ask your nurse to give you one when you are discharged.2.Visit a local take-back location: Many local pharmacies and police departments have programs that collect old and unwanted prescriptiondrugs. Call your local pharmacy or go to http://Typesafe.[employer]/6R5Tk4w to find one close to you.3.Make use of household items: Use cat litter or old coffee grounds to dispose medications if other options arenot available. Mix your drugs with these household products, seal them in an airtight container andthrow it into the garbage. Call [facility]: [phone] to be sure your drugs can be disposed of in this way. Some medicines may require a different approach.4.Never flush your medications down the toilet. IF YOU HAVE BEEN PRESCRIBED AN OPIOIDS FOR PAIN If you have been prescribed an opioid (such as hydrocodone, oxycodone or morphine), it is critical to understand the possible side effects and risks of opioid pain medications. Even when taken as directed, opioids can have several side effects including: Tolerance, meaning you might need to take more of a medication for the same pain relief. Nausea, vomiting and/or constipation. Sleepiness, dizziness, dry mouth, confusion, depression or itching. Physical dependence, meaning you have withdrawal symptoms when a medication is stopped ? this can develop within a few days. KNOW YOUR RESPONSIBILITIES It is important to know exactly how much and how often to take the opioid pain medications you are prescribed. Never take opioids in higher amounts or more often than prescribed. Do not combine opioids with alcohol or other drugs that cause drowsiness, such as benzodiazepines, also known as benzos,including diazepam and alprazolam, muscle relaxants or sleep aids. Never sell or share prescriptionopioids. This is illegal. Store opioids in a secure place and out of reach of others (including children, family, friends and visitors). The last page(s) of this document has been signed and retained as a CHART COPY Signatures Patient Education Materials Conjunctivitis, Non-Specific Medication Leaflets My discharge plan and instructions have been reviewed and explained to me and I,DESIRE MAY understand my current condition and have read and understand these discharge instructions. I have received a written copy of the plan/instructions. If I have questions, I am aware that I should contact my doctor. Patient/Radio Journalist Signature: Date/Time: Relationship to Patient: Witness Name/Signature: Date/Time: [facility]06-03-2024 Hospital Discharge instructions Patient Education 12/02/2023 01:12:54 Sinusitis (Antibiotic Treatment) Sinusitis (Antibiotic Treatment) The sinuses are air-filled spaces within the bones of the face. They connect to the inside of the nose. Sinusitis is an inflammation of the tissue that lines the sinuses. Sinusitis can occur during acold. It can also happen due to allergies to pollens and other particles in the air. Sinusitis can cause symptoms of sinus congestion and a feeling of fullness. A sinus infection causes fever, headache, and facial pain. There is often green or yellow fluid draining from the nose or into the back ofthe throat (post-nasal drip). You have been given antibiotics to treat this condition. Home care Take the full course of antibiotics as instructed. Do not stop taking them, even when you feel better. Drink plenty of water, hot tea, and other liquids. This may help thin nasal mucus. It also may helpyour sinuses drain fluids. Heat may help soothe painful areas of your face. Use a towel soaked in hot water. Or, lining finisher the shower and direct the warm spray onto your face. Using a vaporizer along with a menthol rub at nightmay also help soothe symptoms. An expectorant with guaifenesin may help thin nasal mucus and help your sinuses drain fluids. You can use an hfhq-znl-eqsutko decongestant, unless a similar medicine was prescribed to you. Nasal sprays work the fastest. Use one that contains phenylephrine or oxymetazoline. First blow your nose gently. Then use the spray. Do not use these medicines more often than directed on the label. If you do, your symptoms may get worse. You may also take pills that contain pseudoephedrine. Don t use products that combine multiple medicines. This is because side effects may be increased. Read labels. You can also ask the pharmacist for help. (People with high blood pressure should not use decongest ants. They can raise blood pressure.) Fpqh-kbg-kayyalr antihistamines may help if allergies contributed to your sinusitis. Do not use nasal rinses or irrigation during an acute sinus infection, unless your healthcare provider tells you to. Rinsing may spread the infection to other areas in your sinuses. Use acetaminophen or ibuprofen to control pain, unless another pain medicine was prescribed to you.If you have chronic liver or kidney disease or ever had a stomach ulcer, talk with your healthcare provider before using these medicines. (Aspirin should never be taken by anyone under age 18 who is ill with a fever. It may cause severe liver damage.) Don't smoke. This can make symptoms worse. Follow-up care Follow up with your healthcare provider or our staff if you are not better in 1 week. When to seek medical advice Call your healthcare provider if any of these occur: Facial pain or headache that gets worse Stiff neck Unusual drowsiness or confusion Swelling of your forehead or eyelids Vision problems, such as blurred or double vision Fever of 100.4 F (38 C) or higher, or as directed by your healthcare provider Seizure Breathing problems Symptoms don't go away in 10 days Prevention Here are steps you can take to help prevent an infection: Keep good hand washing habits. Don t have close contact with people who have sore throats, colds, or other upper respiratory infections. Don t smoke, and stay away from secondhand smoke. Stay up to date with of your vaccines. 8533-4303 [employer]. [address] [place] [address], [place] [address]. All rights reserved. This information is not intended as a substitute for professional medical care. Always follow yourhealthcare professional's instructions. 12/02/2023 01:12:54 Dizziness, Uncertain Cause Dizziness (Uncertain Cause) Dizziness is a common symptom. It may be described as lightheadedness, spinning, or feeling like you are going to faint. Dizziness can have many causes. Be sure to tell the healthcare provider about: All medicines you take, including prescription, ptmu-rak-grvbxyg, herbs, and supplements Any other symptoms you have Any health problems you are being treated for Any past major health problems you've had, such as a heart attack, balance issues, hearing problems, or blood pressure problems Anything that causes the dizziness to get worse or better Today's exam did not show an exact cause for your dizziness. Other tests may be needed. Follow up with your healthcare provider. Home care Dizziness that occurs with sudden standing may be a sign of mild dehydration. Drink extra fluids for the next few days. If you recently started a new medicine, stopped a medicine, or had the dose of a current medicine changed, talk with the prescribing healthcare provider. Your medicine plan may need adjustment. If dizziness lasts more than a few seconds, sit or lie down until it passes. This may help prevent injury in case you pass out. Get up slowly when you feel better. Don't drive or use power tools or dangerous equipment until you have had no dizziness for at least 48 hours. Follow-up care Follow up with your healthcare provider for further evaluation within the next 7 days or as advised. When to seek medical advice Call your healthcare provider for any of the following: Worsening of symptoms or new symptoms Passing out or seizure Repeated vomiting Headache Palpitations (the sense that your heart is fluttering or beating fast or hard) Shortness of breath Blood in vomit or stool (black or red color) Weakness of an arm or leg or 1 side of the face Vision or hearing changes Trouble walking or speaking Chest, arm, neck, back, or jaw pain 4770-2951 [employer]. [address] [place] [address], [place] [address]. All rights reserved. This information is not intended as a substitute for professional medical care. Always follow yourhealthcare professional's instructions. Follow Up Care 12/01/2023 23:22:57 With:[facility] Address: [address] [place] [address] [address] [place] [phone]- Business (1) When:2-4 days Comments:Take meclizine as needed for dizziness, if no improvement in your symptoms you may start antibiotics after 3 to 4 days. Return if any worsening or concerning symptoms. [facility] Note Discharge Instructions Thank you for allowing [facility] to assist you with your healthcare needs. The following is importantdischarge information regarding your hospital visit. Diagnosis from Today's Visit Sinusitis What to Do Next Instructions from Your Care Team No qualifying data available. Post Acute Orders No qualifying data available. You Need to Schedule the Following Appointments Follow Up with [facility] When:Within 2-4 days Where:[address] [place] [address]- Business (1) Additional Information: Take meclizine as needed for dizziness, if no improvement in your symptoms you may start antibiotics after 3 to 4 days. Return if any worsening or concerning symptoms. Allergies Robitussin Racing heartbeat Medications Please ask your primary doctor or pharmacist before taking any other medication not listed, including over the counter drugs, herbal medications, vitamins and or supplements as they may interact withyour home medications. What How Much When Instructions Last Dose New amoxicillin-clavulanate (amoxicillin-clavulanate 875 mg-125 mg oral tablet) 1 tab(s) by mouth Every 12 hours Duration: 7 Days Printed Prescription New meclizine (meclizine 25 mg oral tablet) 1 tab(s) by mouth Three (3) times a day Duration: 5 Days Printed Prescription Please take this list to your next doctor s visit. Bring all medications you take, including over the counter medications, herbals and other supplements with you to your doctor s visit. Patients and families are reminded to discard old lists and to update any records with all medication providers or retail pharmacies. Education Materials Sinusitis (Antibiotic Treatment) The sinuses are air-filled spaces within the bones of the face. They connect to the inside of the nose. Sinusitis is an inflammation of the tissue that lines the sinuses. Sinusitis can occur during acold. It can also happen due to allergies to pollens and other particles in the air. Sinusitis can cause symptoms of sinus congestion and a feeling of fullness. A sinus infection causes fever, headache, and facial pain. There is often green or yellow fluid draining from the nose or into the back ofthe throat (post-nasal drip). You have been given antibiotics to treat this condition. Home care Take the full course of antibiotics as instructed. Do not stop taking them, even when you feel better. Drink plenty of water, hot tea, and other liquids. This may help thin nasal mucus. It also may helpyour sinuses drain fluids. Heat may help soothe painful areas of your face. Use a towel soaked in hot water. Or, lining finisher the shower and direct the warm spray onto your face. Using a vaporizer along with a menthol rub at nightmay also help soothe symptoms. An expectorant with guaifenesin may help thin nasal mucus and help your sinuses drain fluids. You can use an qxso-vdl-bdgngav decongestant, unless a similar medicine was prescribed to you. Nasal sprays work the fastest. Use one that contains phenylephrine or oxymetazoline. First blow your nose gently. Then use the spray. Do not use these medicines more often than directed on the label. If you do, your symptoms may get worse. You may also take pills that contain pseudoephedrine. Don t use products that combine multiple medicines. This is because side effects may be increased. Read labels. You can also ask the pharmacist for help. (People with high blood pressure should not use decongest ants. They can raise blood pressure.) Zekv-zkc-jcmhyxw antihistamines may help if allergies contributed to your sinusitis. Do not use nasal rinses or irrigation during an acute sinus infection, unless your healthcare provider tells you to. Rinsing may spread the infection to other areas in your sinuses. Use acetaminophen or ibuprofen to control pain, unless another pain medicine was prescribed to you.If you have chronic liver or kidney disease or ever had a stomach ulcer, talk with your healthcare provider before using these medicines. (Aspirin should never be taken by anyone under age 18 who is ill with a fever. It may cause severe liver damage.) Don't smoke. This can make symptoms worse. Follow-up care Follow up with your healthcare provider or our staff if you are not better in 1 week. When to seek medical advice Call your healthcare provider if any of these occur: Facial pain or headache that gets worse Stiff neck Unusual drowsiness or confusion Swelling of your forehead or eyelids Vision problems, such as blurred or double vision Fever of 100.4 F (38 C) or higher, or as directed by your healthcare provider Seizure Breathing problems Symptoms don't go away in 10 days Prevention Here are steps you can take to help prevent an infection: Keep good hand washing habits. Don t have close contact with people who have sore throats, colds, or other upper respiratory infections. Don t smoke, and stay away from secondhand smoke. Stay up to date with of your vaccines. 0545-2717 [employer]. [address] [place] [address]. All rights reserved. This information is not intended as a substitute for professional medical care. Always follow yourhealthcare professional's instructions. Dizziness (Uncertain Cause) Dizziness is a common symptom. It may be described as lightheadedness, spinning, or feeling like you are going to faint. Dizziness can have many causes. Be sure to tell the healthcare provider about: All medicines you take, including prescription, todh-ena-rmntucb, herbs, and supplements Any other symptoms you have Any health problems you are being treated for Any past major health problems you've had, such as a heart attack, balance issues, hearing problems, or blood pressure problems Anything that causes the dizziness to get worse or better Today's exam did not show an exact cause for your dizziness. Other tests may be needed. Follow up with your healthcare provider. Home care Dizziness that occurs with sudden standing may be a sign of mild dehydration. Drink extra fluids for the next few days. If you recently started a new medicine, stopped a medicine, or had the dose of a current medicine changed, talk with the prescribing healthcare provider. Your medicine plan may need adjustment. If dizziness lasts more than a few seconds, sit or lie down until it passes. This may help prevent injury in case you pass out. Get up slowly when you feel better. Don't drive or use power tools or dangerous equipment until you have had no dizziness for at least 48 hours. Follow-up care Follow up with your healthcare provider for further evaluation within the next 7 days or as advised. When to seek medical advice Call your healthcare provider for any of the following: Worsening of symptoms or new symptoms Passing out or seizure Repeated vomiting Headache Palpitations (the sense that your heart is fluttering or beating fast or hard) Shortness of breath Blood in vomit or stool (black or red color) Weakness of an arm or leg or 1 side of the face Vision or hearing changes Trouble walking or speaking Chest, arm, neck, back, or jaw pain 1781-0023 [employer]. [address] [place] [address]. All rights reserved. This information is not intended as a substitute for professional medical care. Always follow yourhealthcare professional's instructions. Additional Information VACCINATE! IT SAVES LIVES! Members of the community who have not yet received the COVID-19 vaccine and would like to receive it can visit one of [facility] vaccine clinics. There are many vaccine clinic locations within the [facility]. For locations and available times, please visit www.[email or web address].[place].gov/. It is important to note that some COVID mobile vaccine clinics are held outdoors and may be canceled in rainy or stormy conditions. To learn more about pediatric vaccinations (ages 5-11), we invite you to visit the [facility] webpage. [email or web address]/[email or web address] [email or web address] learn more about the COVID-19 vaccine, we invite you to visit the CDC website for a list of frequently asked questions. https://www.cdc.gov/coronavirus/2019-ncov/vaccines/faq.html [facility] Patient Portal Access Instructions: Stay connected with your healthcare team and access your personal medical information anytime with the [facility] Patient Portal. If you would like a full copy of your medical records please contact the [facility] Medical Records Department Saturday through Saturday between 8a.m. and 4:30p.m. Please follow the directions below to access the portal: 1.Access the email account you provided upon registration to the [facility].2.Look for an invitation email from [facility].3.Open the email and access the invitation link: Accept Invitation to [facility]4.Fill in the required mckeon to create your account. Sign into [email or web address] with your username and password that you created in the above steps to stay up to date. You can then view a summary of results, a summary of your visits, and the ability to download your summaries to your computer or send the information securely to a physician. Remember that your healthcare information is confidential, so carefully consider who you will allow to register on the [facility] Patient Portal for access to your information. You can also access the [facility] Patient Portal on the [employer]. Simply click on Health Records under [employer] and then click on the [employer] logo. HOW TO SAFELY DISPOSE OF PRESCRIPTION MEDICATIONS Please use one of the following methods to safely dispose of your unused medications. 1.Use a drug disposal kit: the drug disposal pouch allows you to safely discard your old and unuseddrugs. Ask your nurse to give you one when you are discharged.2.Visit a local take-back location: Many local pharmacies and police departments have programs that collect old and unwanted prescriptiondrugs. Call your local pharmacy or go to http://Types[employer]/9B4Ae3x to find one close to you.3.Make use of household items: Use cat litter or old coffee grounds to dispose medications if other options arenot available. Mix your drugs with these household products, seal them in an airtight container andthrow it into the garbage. Call [facility]: [phone] to be sure your drugs can be disposed of in this way. Some medicines may require a different approach.4.Never flush your medications down the toilet. IF YOU HAVE BEEN PRESCRIBED AN OPIOIDS FOR PAIN If you have been prescribed an opioid (such as hydrocodone, oxycodone or morphine), it is critical to understand the possible side effects and risks of opioid pain medications. Even when taken as directed, opioids can have several side effects including: Tolerance, meaning you might need to take more of a medication for the same pain relief. Nausea, vomiting and/or constipation. Sleepiness, dizziness, dry mouth, confusion, depression or itching. Physical dependence, meaning you have withdrawal symptoms when a medication is stopped ? this can develop within a few days. KNOW YOUR RESPONSIBILITIES It is important to know exactly how much and how often to take the opioid pain medications you are prescribed. Never take opioids in higher amounts or more often than prescribed. Do not combine opioids with alcohol or other drugs that cause drowsiness, such as benzodiazepines, also known as benzos,including diazepam and alprazolam, muscle relaxants or sleep aids. Never sell or share prescriptionopioids. This is illegal. Store opioids in a secure place and out of reach of others (including children, family, friends and visitors). The last page(s) of this document has been signed and retained as a CHART COPY Signatures Patient Education Materials Sinusitis (Antibiotic Treatment) Dizziness, Uncertain Cause Medication Leaflets My discharge plan and instructions have been reviewed and explained to me and I,DESIRE MAY understand my current condition and have read and understand these discharge instructions. I have received a written copy of the plan/instructions. If I have questions, I am aware that I should contact my doctor. Patient/Radio Journalist Signature: Date/Time: Relationship to Patient: Witness Name/Signature: Date/Time: [facility]06-03-2024 Note ORIGINAL EXAMINATION: CT OF THE HEAD WITHOUT CONTRAST12/02/2023 12:33 am TECHNIQUE: CT of the head was performed without the administration of intravenous contrast. Automated exposure control, iterative reconstruction, and/or weight based adjustment of the mA/kV was utilized to reduce the radiation dose to as low as reasonably achievable. COMPARISON: None. HISTORY: ORDERING SYSTEM PROVIDED HISTORY: Reason for Exam: dizzy spells with headache for several weeks. some left arm numbness as well dizziness, numbness, SCHMIDT FINDINGS: There is no intracranial hemorrhage, mass, mass effect or abnormal extra-axial fluid collection. No CT evidence for acute infarction. The ventricles are normal. 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 The skull base and calvarium demonstrate no abnormality. Mild mucosal thickening of the paranasal sinuses, with a small amount of aerated secretions. The left frontal sinus appears under developed. The mastoid air cells are clear. Multiple, small subcentimeter lymph nodes suspected in the soft tissues along the posterior base the skull. IMPRESSION: No acute intracranial abnormalities. Findings suggestive of mild acute sinusitis in the appropriate clinical setting. Additional incidental findings as above. I have personally reviewed the images of this examination and agree with the resident's findings and interpretation. Interpreted by: Farhat Choe Preliminary Report By: Ashley Hernandez Electronically signed By Farhat Choe Dictated Date: 12/02/2023 12:39:47 AM Prelim Date: 12/02/2023 12:54:02 AM Sign Date: 12/02/2023 12:54:37 AM Ordering Provider: [facility]06-03-2024 Note ORIGINAL EXAMINATION: ONE XRAY VIEW OF THE CHEST COMPARISON: 08/21/2021 HISTORY: ORDERING SYSTEM PROVIDED HISTORY: Reason for Exam: chest pain Dizzy spells FINDINGS: The cardiomediastinal silhouette is unremarkable. No pleural effusions, pneumothoraces, or focal consolidations appreciated. Hazy appearance of the bilateral mid to lower lungs which appear symmetric and are favored to represent artifact from overlying breast tissue. No acute osseous abnormalities. IMPRESSION: No acute cardiopulmonary process. I have personally reviewed the images of this examination, and agree with the resident's findings and interpretation. Interpreted by: Jan Steinberg MD Preliminary Report By: Ashley Hernandez Electronically signed By Jan Steinberg MD Dictated Date: 12/02/2023 12:35:51 AM Prelim Date: 12/02/2023 12:39:33 AM Sign Date: 12/02/2023 12:43:34 AM Ordering Provider: [facility]06-02-2024 NoteSinus rhythm Electronic Signature: ELIE RODARTE MD 12/01/2023 23:53:24[facility] 10-27-2023 Miscellaneous Notes* Telephone Encounter - Alla Flores MD - 04/26/2023 5:42 PM EDT Clomid & letrozole are similar medications. I would not recommend clomid at this time. Alla Flores MD * Telephone Encounter - Emmanuelle Hicks LPN - 04/25/2023 7:53 AM EDT Please see pt's mychart message and advise. Pt aware that you are out of the office until Saturday. Emmanuelle Hicks LPN documented in [facility] NoteHNO ID: [id number] Author: Alla Flores MD Service: ? Author Type: Physician Type: Progress Notes Filed: 04/16/2023 2:30 PM Note Text: Photographers' Model offered: Patient declines. Desire is a 27 year old who presents for an annual gynecologic exam. Menses: Induced by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 treated with self-care. Recovering from a strain or sprain may take 6 to 8 weeks. Your self-care goal is to reduce pain and immobilize the injury to speed healing. A sprain injures ligaments (tissue that connects bones to bones). A strain injures muscles or tendons (tissue that connects muscles to bones). Support the injured area Wrapping the injured area provides support for short, necessary activities. Be careful not to wrap the area too tightly. This could cut off the blood supply. Support a wrist, elbow, or shoulder with a sling. Wrap an ankle or knee with an elastic bandage. Tape a finger or toe to the one next to it. Use cold and heat Cold reduces swelling. Both cold and heat reduce pain. Heat should not be used in the initial treatment of the injury. When using cold or heat, always place a thin towel between the pack and your skin. Apply ice or a cold pack 10 to 15 minutes every hour you re awake for the first 2 days. After the swelling goes down, use cold or heat to control pain. Don t use heat late in the day, since it can cause swelling when you re not active. Rest and elevate Rest and elevation help your injury heal faster. Raise the injured area above your heart level. Keep the injured area from moving. Limit the use of the joint or limb. Use medicine Aspirin reduces pain and swelling. (Note: Don t give aspirin to a child 18 or younger unless prescribed by the doctor.) Non-steroidal anti-inflammatory medicines, such as ibuprofen, may reduce pain and swelling, as well. Ask your healthcare provider for advice. When to call your healthcare provider Call your healthcare provider if: The injured joint won t move, or bones make a grating sound when they move You can t put weight on the injured area, even after 24 hours The injured body part is cold, blue, tingling, or numb The joint or limb appears bent or crooked. Pain increases or doesn t improve in 4 days When pressing along the injured area, you notice a spot that is especially painful [id number] [employer]. [address] [place] [address], [place] [address]. All rights reserved. This information is not intended as a substitute for professional medical care. Always follow yourhealthcare professional's instructions. Additional Information VACCINATE! IT SAVES LIVES! Members of the community who have not yet received the COVID-19 vaccine and would like to receive it can visit one of [facility] vaccine clinics. There are many vaccine clinic locations within the [facility]. For locations and available times, please visit www.gettheshot.coronavirus.[place].gov/. It is important to note that some COVID mobile vaccine clinics are held outdoors and may be canceled in rainy or stormy conditions. To learn more about pediatric vaccinations (ages 5-11), we invite you to visit the [facility] webpage. [email or web address]/[email or web address] [email or web address] learn more about the COVID-19 vaccine, we invite you to visit the CDC website for a list of frequently asked questions. https://www.cdc.gov/coronavirus/2019-ncov/vaccines/faq.html [facility] Patient Portal Access Instructions: Stay connected with your healthcare team and access your personal medical information anytime with the [facility] Patient Portal. If you would like a full copy of your medical records please contact the [facility] Medical Records Department Saturday through Saturday between 8a.m. and 4:30p.m. Please follow the directions below to access the portal: 1.Access the email account you provided upon registration to the [facility].2.Look for an invitation email from [facility].3.Open the email and access the invitation link: Accept Invitation to [facility]4.Fill in the required mckeon to create your account. Sign into [email or web address] with your username and password that you created in the above steps to stay up to date. You can then view a summary of results, a summary of your visits, and the ability to download your summaries to your computer or send the information securely to a physician. Remember that your healthcare information is confidential, so carefully consider who you will allow to register on the [facility] Patient Portal for access to your information. You can also access the [facility] Patient Portal on the [employer]. Simply click on Health Records under [employer] and then click on the [facility] logo. HOW TO SAFELY DISPOSE OF PRESCRIPTION MEDICATIONS Please use one of the following methods to safely dispose of your unused medications. 1.Use a drug disposal kit: the drug disposal pouch allows you to safely discard your old and unuseddrugs. Ask your nurse to give you one when you are discharged.2.Visit a local take-back location: Many local pharmacies and police departments have programs that collect old and unwanted prescriptiondrugs. Call your local pharmacy or go to http://Types[employer]/1E7Iz4d to find one close to you.3.Make use of household items: Use cat litter or old coffee grounds to dispose medications if other options arenot available. Mix your drugs with these household products, seal them in an airtight container andthrow it into the garbage. Call [facility]: [phone] to be sure your drugs can be disposed of in this way. Some medicines may require a different approach.4.Never flush your medications down the toilet. IF YOU HAVE BEEN PRESCRIBED AN OPIOIDS FOR PAIN If you have been prescribed an opioid (such as hydrocodone, oxycodone or morphine), it is critical to understand the possible side effects and risks of opioid pain medications. Even when taken as directed, opioids can have several side effects including: Tolerance, meaning you might need to take more of a medication for the same pain relief. Nausea, vomiting and/or constipation. Sleepiness, dizziness, dry mouth, confusion, depression or itching. Physical dependence, meaning you have withdrawal symptoms when a medication is stopped ? this can develop within a few days. KNOW YOUR RESPONSIBILITIES It is important to know exactly how much and how often to take the opioid pain medications you are prescribed. Never take opioids in higher amounts or more often than prescribed. Do not combine opioids with alcohol or other drugs that cause drowsiness, such as benzodiazepines, also known as benzos,including diazepam and alprazolam, muscle relaxants or sleep aids. Never sell or share prescriptionopioids. This is illegal. Store opioids in a secure place and out of reach of others (including children, family, friends and visitors). The last page(s) of this document has been signed and retained as a CHART COPY Signatures Patient Education Materials Self-Care for Strains and Sprains Medication Leaflets My discharge plan and instructions have been reviewed and explained to me and I,DESIRE MAY understand my current condition and have read and understand these discharge instructions. I have received a written copy of the plan/instructions. If I have questions, I am aware that I should contact my doctor. Patient/Radio Journalist Signature: Date/Time: Relationship to Patient: Witness Name/Signature: Date/Time: [facility]06-18-2023 Note ORIGINAL EXAMINATION: 6 XRAY VIEWS OF THE right lower EXTREMITY 12/16/2022 11:04 pm COMPARISON: None. HISTORY: ORDERING SYSTEM PROVIDED HISTORY: Reason for Exam: pain FINDINGS: No fracture or dislocation. No radiopaque foreign body. IMPRESSION: No fracture or dislocation. Interpreted by: Yariel Anders Preliminary Report By: Yariel Anders Electronically signed By Yariel Anders Dictated Date: 12/16/2022 11:09:01 PM Prelim Date: 12/16/2022 11:10:21 PM Sign Date: 12/16/2022 11:10:21 PM Ordering Provider: [facility]06-18-2023 Note ORIGINAL EXAMINATION: 6 XRAY VIEWS OF THE right lower EXTREMITY 12/16/2022 11:04 pm COMPARISON: None. HISTORY: ORDERING SYSTEM PROVIDED HISTORY: Reason for Exam: pain FINDINGS: No fracture or dislocation. No radiopaque foreign body. IMPRESSION: No fracture or dislocation. Interpreted by: Yariel Anders Preliminary Report By: Yariel Anders Electronically signed By Yariel Anders Dictated Date: 12/16/2022 11:09:01 PM Prelim Date: 12/16/2022 11:10:21 PM Sign Date: 12/16/2022 11:10:21 PM Ordering Provider: [facility]05-02-2023 Miscellaneous Notes* Telephone Encounter - Alla Flores MD - 10/30/2022 4:50 PM EDT Letrozole sent Alla Flores MD * Telephone Encounter - Tiffany Roy RN - 10/30/2022 2:54 PM EDT Patient notified. She does want to do increased dose. Please file. No need to call patient back. Tiffany Roy RN * Telephone Encounter - Lynne Rendon RN - 10/30/2022 2:52 PM EDT Left message for patient to return phone call back regarding serum progesterone level ----- Message from Alla Flores MD sent at 10/30/2022 2:24 PM EDT ----- This indicates anovulation I can increase the dose if she would like to try a 3rd round of letrozole. Alla Flores MD [facility] Miscellaneous Notes* Telephone Encounter - Sonia Erazo RN - 09/21/2022 2:08 PM EDT Patient notified. Sonia Erazo RN * Telephone Encounter - Alla Flores MD - 09/21/2022 1:54 PM EDT Rx provera given Alla Flores MD * Telephone Encounter - Sonia Erazo RN - 09/20/2022 2:45 PM EDT Patient states she was instructed to call the office for medication to induce her menses if she didn't start on her own. LMP 08/26/22. Aware KJ back in office tomorrow. Sonia Eraoz RN [facility]23 NoteHNO ID: [id number] Author: ALEXIS Mcdonough Service: ? Author Type: Physician Photography Spotter Type: Progress Notes Filed: 09/19/2022 3:00 PM Note Text: This note was created using [employer]. Subjective Desire May is a 27 year old female. HPI 27-year-old female presents for nasal congestion and positive COVID test. Patient states that she got tested for COVID at work today and came back positive. She really has not been having many symptoms. States she has had nasal congestion for about 3 days, otherwise denies any symptoms. No cough, chest pain, shortness of breath. She does have history of asthma, but denies any increase in wheezing. No vomiting or diarrhea. No fevers. 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 PAST MEDICAL HISTORY Diagnosis Date NEGATIVE MEDICAL HISTORY PAST SURGICAL HISTORY Procedure Laterality Date LAPAROSCOPY SURG CHOLECYSTECTOMY 2019 Cholecystectomy, lap ALLERGIES Robitussin [Guaifenesin] MEDICATIONS albuterol HFA (PROVENTIL HFA, VENTOLIN HFA) 90 mcg/actuation inhaler Inhale 2 Puffs as instructed every 4 hours as needed for Wheezing/Shortness of Breath. letrozole (FEMARA) 2.5 mg tablet Take 2 tablets by mouth once daily. On days 3-7 of menstrual cycle. multivit with calcium,iron,min (WOMEN'S MULTIPLE VITAMINS ORAL) Take 1 tablet by mouth once daily. PNV [id number]-[id number]-[id number] 90 mg iron- 1 mg-200 mg cap Take 1 tablet by mouth once daily. (Patient not taking: Reported on 07/24/2022) FAMILY HISTORY Problem Relation Age of Onset Hypertension Mother Social History Tobacco Use Smoking status: Former Smokeless tobacco: Never Vaping Use Vaping Use: Never used Substance Use Topics Alcohol use: Not Currently Drug use: Not Currently Review of Systems Constitutional: Negative for chills and fever. HENT: Positive for congestion. Negative for ear pain and sore throat. Respiratory: Negative for cough and shortness of breath. Cardiovascular: Negative for chest pain. Gastrointestinal: Negative for diarrhea and vomiting. Objective BP 110/70 Pulse 100 Temp 36.9 ?C (98.5 ?F) (Tympanic) Resp 18 Wt 84 kg (185 lb 3.2 oz) LMP 07/17/2022 SpO2 98% BMI 34.99 kg/m? Physical Exam Vitals and nursing note reviewed. Constitutional: General: She is not in acute distress. Appearance: Normal appearance. She is not toxic-appearing. HENT: Right Ear: Tympanic membrane and ear canal normal. Left Ear: Tympanic membrane and ear canal normal. Nose: Congestion present. Mouth/Throat: Mouth: Mucous membranes are moist. Pharynx: No oropharyngeal exudate or posterior oropharyngeal erythema. Eyes: Conjunctiva/sclera: Conjunctivae normal. Cardiovascular: Rate and Rhythm: Normal rate and regular rhythm. Pulmonary: Effort: Pulmonary effort is normal. Breath sounds: Normal breath sounds. Neurological: Mental Status: She is alert. Assessment and Plan ASSESSMENT/PLAN: 1. COVID - ICD9: 079.89, ICD10: U07.1 (primary diagnosis) -Offered confirmative PCR test, but patient declines. She did a swab at work that came back positive. -Discussed with patient that she is in the window for the antiviral. She does have history of asthma and is overweight, so would likely meet criteria for treatment. However, patient declines. She is only having nasal congestion, no severe symptoms. -Given isolation precautions. 2. Nasal congestion - ICD9: 478.19, ICD10: R09.81 -May use OTC Flonase, decongestants as needed. Diagnosis and treatment plan were discussed and questions were answered to the patient's satisfaction. Pt acknowledged understanding of concepts and follow up plan. Specific signs and symptoms that would indicate the need for higher level of care were discussed in detail warranting prompt ER evaluation. Morales Dave [facility]03-22-2023 History of Present illness Narrative* ALEXIS Mcdonough - 09/19/2022 2:56 PM EDT This note was created using [employer]. Subjective Desire May is a 27 year old female. HPI 27-year-old female presents for nasal congestion and positive COVID test. Patient states that she got tested for COVID at work today and came back positive. She really has not been having many symptoms. States she has had nasal congestion for about 3 days, otherwise denies any symptoms. No cough, chest pain, shortness of breath. She does have history of asthma, but denies any increase in wheezing. No vomiting or diarrhea. No fevers. 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 PAST MEDICAL HISTORY Diagnosis Date NEGATIVE MEDICAL HISTORY PAST SURGICAL HISTORY Procedure Laterality Date LAPAROSCOPY SURG CHOLECYSTECTOMY 2019 Cholecystectomy, lap ALLERGIES Robitussin [Guaifenesin] MEDICATIONS albuterol HFA (PROVENTIL HFA, VENTOLIN HFA) 90 mcg/actuation inhaler Inhale 2 Puffs as instructed every 4 hours as needed for Wheezing/Shortness of Breath. letrozole (FEMARA) 2.5 mg tablet Take 2 tablets by mouth once daily. On days 3-7 of menstrual cycle. multivit with calcium,iron,min (WOMEN'S MULTIPLE VITAMINS ORAL) Take 1 tablet by mouth once daily. PNV 108-[id number]-[id number]-[id number] 90 mg iron- 1 mg-200 mg cap Take 1 tablet by mouth once daily. (Patient nottaking: Reported on 07/24/2022) FAMILY HISTORY Problem Relation Age of Onset Hypertension Mother Social History Tobacco Use Smoking status: Former Smokeless tobacco: Never Vaping Use Vaping Use: Never used Substance Use Topics Alcohol use: Not Currently Drug use: Not Currently Review of Systems Constitutional: Negative for chills and fever. HENT: Positive for congestion. Negative for ear pain and sore throat. Respiratory: Negative for cough and shortness of breath. Cardiovascular: Negative for chest pain. Gastrointestinal: Negative for diarrhea and vomiting. Objective BP 110/70 Pulse 100 Temp 36.9 C (98.5 F) (Tympanic) Resp 18 Wt 84 kg (185 lb 3.2 oz) LMP 07/17/2022 SpO2 98% BMI 34.99 kg/m Physical Exam Vitals and nursing note reviewed. Constitutional: General: She is not in acute distress. Appearance: Normal appearance. She is not toxic-appearing. HENT: Right Ear: Tympanic membrane and ear canal normal. Left Ear: Tympanic membrane and ear canal normal. Nose: Congestion present. Mouth/Throat: Mouth: Mucous membranes are moist. Pharynx: No oropharyngeal exudate or posterior oropharyngeal erythema. Eyes: Conjunctiva/sclera: Conjunctivae normal. Cardiovascular: Rate and Rhythm: Normal rate and regular rhythm. Pulmonary: Effort: Pulmonary effort is normal. Breath sounds: Normal breath sounds. Neurological: Mental Status: She is alert. Assessment and Plan ASSESSMENT/PLAN: 1. COVID - ICD9: 079.89, ICD10: U07.1 (primary diagnosis) -Offered confirmative PCR test, but patient declines. She did a swab at work that came back positive. -Discussed with patient that she is in the window for the antiviral. She does have history of asthma and is overweight, so would likely meet criteria for treatment. However, patient declines. She is only having nasal congestion, no severe symptoms. -Given isolation precautions. 2. Nasal congestion - ICD9: 478.19, ICD10: R09.81 -May use OTC Flonase, decongestants as needed. Diagnosis and treatment plan were discussed and questions were answered to the patient's satisfaction. Pt acknowledged understanding of concepts and follow up plan. Specific signs and symptoms that would indicate the need for higher level of care were discussed in detail warranting prompt ER evaluation. ALEXIS Mcdonough [facility] Miscellaneous Notes* Telephone Encounter - Alla Flores MD - 09/11/2022 1:44 PM EDT Done \Alla Flores MD * Telephone Encounter - Juliana Smith RN - 09/11/2022 1:39 PM EDT Patient notified of results, verbalizes understanding of instructions. Please file pended medication and progesterone blood work. Juliana Smith RN * Telephone Encounter - Juliana Smith RN - 09/11/2022 1:36 PM EDT ----- Message from Alla Flores MD sent at 09/11/2022 12:25 PM EDT ----- Indicates anovulation Will need to increase letrozole to 5mg Alla Flores MD documented in this encounterF[facility]02-[facility]-2023 NoteConsistent with plantar fasciitis. Reviewed and provided written patient education/instructions regarding diagnosis and management. Reviewed symptom management with non-pharmacological interventions and appropriate use of otc medications for relief of symptoms. Follow up for worsening or no improvement in symptoms.[facility] 08-07-2022 Evaluation + Plan note* Assessment & Plan Note - RICHY Carson CNP - 08/07/2022 3:24 PM ESTAssociated Problem(s): Plantar fasciitis Consistent with plantar fasciitis. Reviewed and provided written patient education/instructions regarding diagnosis and management. Reviewed symptom management with non-pharmacological interventions and appropriate use of otc medications for relief of symptoms. Follow up for worsening or no improvement in symptoms. [id number] Miscellaneous Notes* Assessment & Plan Note - RICHY Carson CNP - 08/07/2022 3:24 PM ESTAssociated Problem(s): Plantar fasciitis Consistent with plantar fasciitis. Reviewed and provided written patient education/instructions regarding diagnosis and management. Reviewed symptom management with non-pharmacological interventions and appropriate use of otc medications for relief of symptoms. Follow up for worsening or no improvement in symptoms. documented in this [facility]02-07-2023 History of Present illness Narrative* Sherrill Kate - 08/07/2022 2:00 PM EST Photographers' Model for Intimate and Non Intimate Exam Photographers' Model was declined Photographers' Model: na * RICHY Carson CNP - 08/07/2022 2:00 PM EST Images from the original note were not included. 08/07/2022 Desire Judd Yadira (: 1995) is a 26 y.o. female , Established patient, here for evaluationof the following chief complaint(s): heal pain (right) ASSESSMENT/PLAN: 1. Plantar fasciitis Assessment & Plan: Consistent with plantar fasciitis. Reviewed and provided written patient education/instructions regarding diagnosis and management. Reviewed symptom management with non-pharmacological interventions and appropriate use of otc medications for relief of symptoms. Follow up for worsening or no improvement in symptoms. Follow up if symptoms worsen or fail to improve. SUBJECTIVE/OBJECTIVE: HPI - Desire L Yadira (: 1995) is a 26 y.o. female , Established patient, here for the evaluation of the following chief complaint(s): heal pain (right) Right heal pain on/off for a few months. Current episode for 4 days. Pain worse in the morning. 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 Wearing new shoes nikes at work with good cushion. Swellingof right heal. Takes ibuprofen, tyelonol , elevation, soaks in epsom salt. Prior to Admission medications Medication Sig Start Date End Date Taking? Authorizing Provider albuterol 108 (90 Base) MCG/ACT inhaler TAKE 2 (INHALATION) EVERY 4-6 HOURS 06/21/22 Yes HistoricalProviderMD Multiple Vitamin (MULTIVITAMIN ADULT PO) Take 1 tablet by mouth in the morning. Yes Historical Provider, Health Maintenance Due Topic Date Due Hepatitis B Vaccines (1 of 3 - 3-dose series) Never done HIV Screening Never done Varicella Vaccines (1 of 2 - 2-dose childhood series) Never done HPV Vaccines (1 - 2-dose series) Never done Hepatitis C Screening Never done Pap Smear Never done COVID-19 Vaccine (3 - Booster for Pfizer series) 05/02/2021 Influenza Vaccine (1) 03/01/2022 Review of Systems Constitutional: Negative. Musculoskeletal: Right heel pain Vitals: 08/07/22 1403 BP: 94/62 Pulse: 99 Resp: 16 SpO2: 96% Weight: 180 lb (81.6 kg) Physical Exam Constitutional: General: She is not in acute distress. Appearance: Normal appearance. She is obese. She is not ill-appearing. HENT: Head: Normocephalic and atraumatic. Cardiovascular: Rate and Rhythm: Normal rate and regular rhythm. Pulses: Normal pulses. Heart sounds: Normal heart sounds. Pulmonary: Effort: Pulmonary effort is normal. Breath sounds: Normal breath sounds. Musculoskeletal: Right foot: Normal range of motion and normal capillary refill. Swelling and tenderness present. Noprominent metatarsal heads or bony tenderness. Normal pulse. Left foot: Normal. Feet: Neurological: Mental Status: She is alert and oriented to person, place, and time. Psychiatric: Mood and Affect: Mood normal. Behavior: Behavior normal. An electronic signature was used to authenticate this note. RICHY Carson CNP 08/07/2022 2:14 PM documented in this [facility]01-24-2023 NoteHNO ID: [id number] Author: Alla Flores MD Service: ? Author Type: Physician Type: Progress Notes Filed: 07/24/2022 12:31 PM Note Text: Desire May is a 26 year old female who presents for problem visit. HPI: Patient presents as desires conception. She has tried for the past few months without . To get with her daughter she needed letrozole and was with the 2nd round. Her daughter will be 2 this October. 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 Comments: Sexual Activity: Yes; Male Contraception: None PAST MEDICAL HISTORY Diagnosis Date NEGATIVE MEDICAL HISTORY PAST SURGICAL HISTORY Procedure Laterality Date LAPAROSCOPY SURG CHOLECYSTECTOMY 2019 Cholecystectomy, lap FAMILY HISTORY Problem Relation Age of Onset Hypertension Mother Social History Tobacco Use Smoking status: Former Smokeless tobacco: Never Vaping Use Vaping Use: Never used Substance Use Topics Alcohol use: Not Currently Drug use: Not Currently Current Outpatient Medications Medication Sig multivit with calcium,iron,min (WOMEN'S MULTIPLE VITAMINS ORAL) Take 1 tablet by mouth once daily. albuterol HFA (PROVENTIL HFA, VENTOLIN HFA) 90 mcg/actuation inhaler Inhale 2 Puffs as instructed every 4 hours as needed for Wheezing/Shortness of Breath. PNV 690-yopu-[id number]-dha 90 mg iron- 1 mg-200 mg cap Take 1 tablet by mouth once daily. (Patient not taking: Reported on 07/24/2022) No current facility-administered medications for this visit. Allergies As of Date: 07/24/2022 Allergen Noted Reaction ROBITUSSIN [GUAIFENESIN] 12/26/2017 Other: See Comments Fully Assessed 07/24/2022 Allergies and current medication updated:Yes EXAM: Wt 186 lb (84.4kg) LMP 07/17/2022 GENERAL: pleasant, female in no apparent distress ASSESSMENT AND PLAN: 26yo female with PCOS AND anovulation Discussed R/B/A and patient wishes to proceed with letrozole to induce ovulation. Use reviewed in detail AND all questions answered. Also discussed intercourse timing AND importance of preconception folic acid. Patient will contact office in no menses in 2 weeks as will prescribe provera as her menses can be irregular. Medical Decision Making: Problems: Low: Acute, uncomplicated illness or injury Data: Unique test result(s) reviewed: 3+ Risk: Moderate: Drug management Medical Decision Making Level: 4 - Moderate Alla lFores [facility]01-24-2023 History of Present illness Narrative* Alla Flores MD - 07/24/2022 11:10 AM EST Desire May is a 26 year old female who presents for problem visit. HPI: Patient presents as desires conception. She has tried for the past few months without . To get with her daughter she needed letrozole and was with the 2nd round. Her daughter will be 2 this October. 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 Comments: Sexual Activity: Yes; Male Contraception: None PAST MEDICAL HISTORY Diagnosis Date NEGATIVE MEDICAL HISTORY PAST SURGICAL HISTORY Procedure Laterality Date LAPAROSCOPY SURG CHOLECYSTECTOMY 2019 Cholecystectomy, lap FAMILY HISTORY Problem Relation Age of Onset Hypertension Mother Social History Tobacco Use Smoking status: Former Smokeless tobacco: Never Vaping Use Vaping Use: Never used Substance Use Topics Alcohol use: Not Currently Drug use: Not Currently Current Outpatient Medications Medication Sig multivit with calcium,iron,min (WOMEN'S MULTIPLE VITAMINS ORAL) Take 1 tablet by mouth once daily. albuterol HFA (PROVENTIL HFA, VENTOLIN HFA) 90 mcg/actuation inhaler Inhale 2 Puffs as instructed every 4 hours as needed for Wheezing/Shortness of Breath. PNV 197-mxmo-kccycl-dha 90 mg iron- 1 mg-200 mg cap Take 1 tablet by mouth once daily. (Patient nottaking: Reported on 07/24/2022) No current facility-administered medications for this visit. Allergies As of Date: 07/24/2022 Allergen Noted Reaction ROBITUSSIN [GUAIFENESIN] 12/26/2017 Other: See Comments Fully Assessed 07/24/2022 Allergies and current medication updated:Yes EXAM: Wt 186 lb (84.4kg) LMP 07/17/2022 GENERAL: pleasant, female in no apparent distress ASSESSMENT AND PLAN: 26yo female with PCOS & anovulation Discussed R/B/A and patient wishes to proceed with letrozole to induce ovulation. Use reviewed in detail & all questions answered. Also discussed intercourse timing & importance of preconception folic acid. Patient will contact office in no menses in 2 weeks as will prescribe provera as her menses can be irregular. Medical Decision Making: Problems: Low: Acute, uncomplicated illness or injury Data: Unique test result(s) reviewed: 3+ Risk: Moderate: Drug management Medical Decision Making Level: 4 - Moderate Alla Flores MD documented [facility] Hospital Discharge instructions Patient Education 02/21/2022 20:18:25 Carpal Tunnel Syndrome Carpal Tunnel Syndrome Carpal tunnel syndrome is a painful condition of the wrist and arm. It is caused by pressure on themedian nerve. The median nerve is one of the nerves that give feeling and movement to the hand. It passes through a tunnel in the wrist called the carpal tunnel. This tunnel is made up of bones and ligaments. Narrowing of this tunnel or swelling of the tissues inside the tunnel puts pressure on themedian nerve. This causes numbness, pins and needles, or electric shooting pains in your hand and forearm. Often the pain is worse at night and may wake you when you are asleep. Carpal tunnel syndrome may occur during and with use of control pills. It is more common in workers who must often bend their wrists. It is also common in people who work with power tools that cause strong vibrations. Home care Rest the painful wrist. Avoid repeated bending of the wrist back and forth. This puts pressure on the median nerve. Avoid using power tools with strong vibrations. If you were given a splint, wear it at night while you sleep. You may also wear it during the day for comfort. Move your fingers and wrists often to prevent stiffness. Elevate your arms on pillows when you lie down. Try using the unaffected hand more. Try not to hold your wrists in a bent, downward position. Sometimes changes in the work place may ease symptoms. If you type most of the day, it may help to change the position of your keyboard or add a wrist support. Your wrist should be in a neutral position and not bent back when typing. You may use maed-aek-htyfnfy pain medicine to treat pain and inflammation, unless another medicine was prescribed. Anti-inflammatory pain medicines, such as ibuprofen or naproxen may be more effective than acetaminophen, which treats pain, but not inflammation. If you have chronic liver or kidney disease or ever had a stomach ulcer or gastrointestinal bleeding, talk with your healthcare provider before using these medicines. Opioid pain medicine will only give temporary relief and does not treat the problem. If pain continues, you may need a shot of a steroid drug into your wrist. If the above methods fail, you may need surgery. This will open the carpal tunnel and release the pressure on the trapped nerve. Follow-up care Follow up with your healthcare provider, or as advised. If X-rays were taken, you will be notified of any new findings that may affect your care. When to seek medical advice Call your healthcare provider right away if any of these occur: Pain not improving with the above treatment Fingers or hand become cold, blue, numb, or tingly Your whole arm becomes swollen or weak [id number] [employer]. [address] [place] [address]. All rights reserved. This information is not intended as a substitute for professional medical care. Always follow yourhealthcare professional's instructions. Follow Up Care 02/21/2022 18:51:17 With:MONTSE CHILD Address: [address] [place] [address] [address] [place] [address] Business (1) When:2-4 days Comments:Take prednisone as prescribed, use Velcro wrist splint especially at night, follow close with your doctor, return if any worsening or concerning symptoms. You may take down ibuprofen as well. [facility] 08-24-2022 Note ORIGINAL EXAMINATION: SIX XRAY VIEWS OF THE LEFT EXTREMITY 02/21/2022 8:04 pm COMPARISON: None. HISTORY: ORDERING SYSTEM PROVIDED HISTORY: Reason for Exam: pain, fall FINDINGS: No acute fracture or dislocation. The carpal bones are within normal limits. The joint spaces are maintained. No soft tissue swelling or radiopaque foreign body. IMPRESSION: No acute osseous abnormality. I have personally reviewed the images of this examination and agree with the resident's findings and interpretation. Interpreted by: Yariel Anders Preliminary Report By: Santosh Brenner Electronically signed By Yariel Anders Dictated Date: 02/21/2022 8:08:28 PM Prelim Date: 02/21/2022 8:13:26 PM Sign Date: 02/21/2022 8:22:49 PM Ordering Provider: ELIE RODARTE [facility]08-24-2022 Note Discharge Instructions Thank you for allowing [facility] to assist you with your healthcare needs. The following is importantdischarge information regarding your hospital visit. Diagnosis from Today's Visit Carpal tunnel syndrome Wrist injury - Minor What to Do Next Instructions from Your Care Team Discharge Home Equipment - Ordered -- Splint, wrist, 99 month(s), 02/21/22 20:18:00 EDT Post Acute Orders No qualifying data available. You Need to Schedule the Following Appointments Follow Up with MONTSE CHILD When Within 2-4 days Why: Take prednisone as prescribed, use Velcro wrist splint especially at night, follow close with your doctor, return if any worsening or concerning symptoms. You may take down ibuprofen as well. Where: [address] [place] [address] [address] [place] [address]- Business (1) Allergies Robitussin (Racing heartbeat) Medications Please ask your primary doctor or pharmacist before taking any other medication not listed, including over the counter drugs, herbal medications, vitamins and or supplements as they may interact withyour home medications. What How Much When Instructions Last Dose New predniSONE (predniSONE 20 mg oral tablet) 2 tab(s) by mouth Once a day Duration: 5 Days Printed Prescription Unchanged albuterol (ProAir HFA MDI (90 mcg/ inh) inhalation aerosol) 2 puff(s) by inhalation Every 4 hours as needed for as needed for wheezing Unchanged budesonide (Pulmicort Flexhaler 90 mcg/ inh inhalation powder) 1 puff(s) by inhalation Two (2) times a day Please take this list to your next doctor s visit. Bring all medications you take, including over the counter medications, herbals and other supplements with you to your doctor s visit. Patients and families are reminded to discard old lists and to update any records with all medication providers or retail pharmacies. [employer] Carpal Tunnel Syndrome Carpal tunnel syndrome is a painful condition of the wrist and arm. It is caused by pressure on themedian nerve. The median nerve is one of the nerves that give feeling and movement to the hand. It passes through a tunnel in the wrist called the carpal tunnel. This tunnel is made up of bones and ligaments. Narrowing of this tunnel or swelling of the tissues inside the tunnel puts pressure on themedian nerve. This causes numbness, pins and needles, or electric shooting pains in your hand and forearm. Often the pain is worse at night and may wake you when you are asleep. Carpal tunnel syndrome may occur during and with use of control pills. It is more common in workers who must often bend their wrists. It is also common in people who work with power tools that cause strong vibrations. Home care Rest the painful wrist. Avoid repeated bending of the wrist back and forth. This puts pressure on the median nerve. Avoid using power tools with strong vibrations. If you were given a splint, wear it at night while you sleep. You may also wear it during the day for comfort. Move your fingers and wrists often to prevent stiffness. Elevate your arms on pillows when you lie down. Try using the unaffected hand more. Try not to hold your wrists in a bent, downward position. Sometimes changes in the work place may ease symptoms. If you type most of the day, it may help to change the position of your keyboard or add a wrist support. Your wrist should be in a neutral position and not bent back when typing. You may use aihm-ayq-veolxpa pain medicine to treat pain and inflammation, unless another medicine was prescribed. Anti-inflammatory pain medicines, such as ibuprofen or naproxen may be more effective than acetaminophen, which treats pain, but not inflammation. If you have chronic liver or kidney disease or ever had a stomach ulcer or gastrointestinal bleeding, talk with your healthcare provider before using these medicines. Opioid pain medicine will only give temporary relief and does not treat the problem. If pain continues, you may need a shot of a steroid drug into your wrist. If the above methods fail, you may need surgery. This will open the carpal tunnel and release the pressure on the trapped nerve. Follow-up care Follow up with your healthcare provider, or as advised. If X-rays were taken, you will be notified of any new findings that may affect your care. When to seek medical advice Call your healthcare provider right away if any of these occur: Pain not improving with the above treatment Fingers or hand become cold, blue, numb, or tingly Your whole arm becomes swollen or weak [id number] [employer]. [address] [place] [address], [place] [address]. All rights reserved. This information is not intended as a substitute for professional medical care. Always follow yourhealthcare professional's instructions. Additional Information VACCINATE! IT SAVES LIVES! Members of the community who have not yet received the COVID-19 vaccine and would like to receive it can visit one of [facility] vaccine clinics. There are many vaccine clinic locations within the [facility]. For locations and available times, please visit [email or web address]. It is important to note that some COVID mobile vaccine clinics are held outdoors and may be canceled in rainy orstormy conditions. To learn more about pediatric vaccinations (ages 5-11), we invite you to visit the [facility] webpage. [email or web address] learn more about the COVID-19 vaccine, we invite you to visit the [facility] website for a list of frequently asked questions. [email or web address] _[email or web address].pdf [facility] Patient Portal Access Instructions: Stay connected with your healthcare team and access your personal medical information anytime with the [facility] Patient Portal. If you would like a full copy of your medical records please contact the [facility] Medical Records Department Saturday through Saturday between 8a.m. and 4:30p.m. Please follow the directions below to access the portal: 1.Access the email account you provided upon registration to the hospital.2.Look for an invitation email from [facility].3.Open the email and access the invitation link: Accept Invitation to [facility]4.Fill in the required mckeon to create your account. Sign into [email or web address] with your username and password that you created in the above steps to stay up to date. You can then view a summary of results, a summary of your visits, and the ability to download your summaries to your computer or send the information securely to a physician. Remember that your healthcare information is confidential, so carefully consider who you will allow to register on the [facility] Patient Portal for access to your information. You can also access the [facility] Patient Portal on the [employer]. Simply click on Health Records under HealthData and then click on the [employer] logo. HOW TO SAFELY DISPOSE OF PRESCRIPTION MEDICATIONS Please use one of the following methods to safely dispose of your unused medications. 1.Use a drug disposal kit: the drug disposal pouch allows you to safely discard your old and unuseddrugs. Ask your nurse to give you one when you are discharged.2.Visit a local take-back location: Many local pharmacies and police departments have programs that collect old and unwanted prescriptiondrugs. Call your local pharmacy or go to http://Typesafe.[employer]/6C5Lo7a to find one close to you.3.Make use of household items: Use cat litter or old coffee grounds to dispose medications if other options arenot available. Mix your drugs with these household products, seal them in an airtight container andthrow it into the garbage. Call [facility]: [phone] to be sure your drugs can be disposed of in this way. Some medicines may require a different approach.4.Never flush your medications down the toilet. IF YOU HAVE BEEN PRESCRIBED AN OPIOIDS FOR PAIN If you have been prescribed an opioid (such as hydrocodone, oxycodone or morphine), it is critical to understand the possible side effects and risks of opioid pain medications. Even when taken as directed, opioids can have several side effects including: Tolerance, meaning you might need to take more of a medication for the same pain relief. Nausea, vomiting and/or constipation. Sleepiness, dizziness, dry mouth, confusion, depression or itching. Physical dependence, meaning you have withdrawal symptoms when a medication is stopped ? this can develop within a few days. KNOW YOUR RESPONSIBILITIES It is important to know exactly how much and how often to take the opioid pain medications you are prescribed. Never take opioids in higher amounts or more often than prescribed. Do not combine opioids with alcohol or other drugs that cause drowsiness, such as benzodiazepines, also known as benzos,including diazepam and alprazolam, muscle relaxants or sleep aids. Never sell or share prescriptionopioids. This is illegal. Store opioids in a secure place and out of reach of others (including children, family, friends and visitors). The last page(s) of this document has been signed and retained as a CHART COPY Signatures Patient Education Materials Carpal Tunnel Syndrome Medication Leaflets My discharge plan and instructions have been reviewed and explained to me and IMARLONMAY DESIRE Judd understand my current condition and have read and understand these discharge instructions. I have received a written copy of the plan/instructions. If I have questions, I am aware that I should contact my doctor. Patient/Radio Journalist Signature: Date/Time: Relationship to Patient: Witness Name/Signature: Date/Time: [facility]08-24-2022 Note ORIGINAL EXAMINATION: SIX XRAY VIEWS OF THE LEFT EXTREMITY 02/21/2022 8:04 pm COMPARISON: None. HISTORY: ORDERING SYSTEM PROVIDED HISTORY: Reason for Exam: pain, fall FINDINGS: No acute fracture or dislocation. The carpal bones are within normal limits. The joint spaces are maintained. No soft tissue swelling or radiopaque foreign body. IMPRESSION: No acute osseous abnormality. I have personally reviewed the images of this examination and agree with the resident's findings and interpretation. Interpreted by: Yariel Anders Preliminary Report By: Santosh Brenner Electronically signed By Yariel Anders Dictated Date: 02/21/2022 8:08:28 PM Prelim Date: 02/21/2022 8:13:26 PM Sign Date: 02/21/2022 8:22:49 PM Ordering Provider: [facility]06-06-2022 Miscellaneous Notes* Telephone Encounter - Viktoriya Montero APRN.CNM - 12/04/2021 5:02 PM EDT Yes, All labs have been drawn. I am not sure what she thought needed drawn? Viktoriya Montero APRN.CNM * Telephone Encounter - Emmanuelle Hicks LPN - 12/04/2021 4:17 PM EDT Pt stopped in lab and stated that she was to have labs drawn, no orders in system. Please advise. Isee all labs were done at last visit. Emmanuelle Hicks LPN documented [facility] Instructions* Patient Instructions* Jagruti Alcantar MD - 11/29/2021 10:21 AM EDT Blood work on cycle day 3 to be fasting Progesterone level 7 days before your next expected period documented in [facility]06[facility]22 History of Present illness Narrative* Jagruti Alcantar MD - 11/29/2021 10:03 AM EDT Desire May is a 26 year old female who presents to discuss ovulation induction medication. HPI: Daughter was born 10/2020. She reports known PCOS diagnosed through outside office. Stopped when daughter was 5-6 months old. She is not tracking menstrual cycles at this time so unknown cycle length. Bleeding 5-6 days. She did OPK at home with last cycle and did not have LH surge. She requests to start ovulation induction medication as she states that is how she conceived with first . She reports taking Femara for 2 cycles. 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 Comments: Sexual Activity: Yes; Male Contraception: None PAST MEDICAL HISTORY Diagnosis Date NEGATIVE MEDICAL HISTORY PAST SURGICAL HISTORY Procedure Laterality Date LAPAROSCOPY SURG CHOLECYSTECTOMY 2020 Cholecystectomy, lap FAMILY HISTORY Problem Relation Age of Onset Hypertension Mother Social History Tobacco Use Smoking status: Former Smoker Smokeless tobacco: Never Used Vaping Use Vaping Use: Never used Substance Use Topics Alcohol use: Not Currently Drug use: Not Currently Current Outpatient Medications Medication Sig PNV [id number]-[id number] 90 mg iron- 1 mg-200 mg cap Take 1 tablet by mouth once daily. albuterol HFA (PROVENTIL HFA, VENTOLIN HFA) 90 mcg/actuation inhaler Inhale 2 Puffs as instructed every 4 hours as needed for Wheezing/Shortness of Breath. No current facility-administered medications for this visit. Allergies As of Date: 11/29/2021 Allergen Noted Reaction ROBITUSSIN [GUAIFENESIN] 12/26/2017 Other: See Comments Fully Assessed 11/29/2021 REVIEW OF SYSTEMS Expanded ROS: N/A Allergies and current medication updated:Yes EXAM: BP 100/62 Wt 173 lb 12.8 oz (78.8kg) LMP 11/22/2021 GENERAL: pleasant, female in no apparent distress HEENT: Normocephalic, atraumatic, mucus membranes moist and no lesions NECK: full range of motion DERMATOLOGY: Normal, without lesions, non-icteric and non-hirsute CHEST: Normal inspiratory effort NEURO: exam grossly non-focal EXTREMITIES: normal ASSESSMENT AND PLAN: Encounter Diagnosis ICD-10-CM 1. Irregular menstrual cycle N92.6 TSH BLD DHEA-S BLD TESTOSTERONE TOTAL HYDROXYPROGESTERO-17 PROGESTERONE BLD FSH BLD LUTEINIZING HORMONE HGB A1C GLUCOSE FASTING BLD ESTRADIOL-17B BLD 2. PCOS (polycystic ovarian syndrome) E28.2 TSH BLD DHEA-S BLD TESTOSTERONE TOTAL HYDROXYPROGESTERO-17 PROGESTERONE BLD FSH BLD LUTEINIZING HORMONE HGB A1C GLUCOSE FASTING BLD ESTRADIOL-17B BLD Patient reports PCOS diagnosed by outside office based on blood work. Unknown menstrual cycle length at this time. Desires . Daughter 12 months old. Discussed recommended interval.Check blood work and then will follow up after blood work to discuss plan further. Reasonable to track menstrual cycles and check OPK's for a few months prior to starting ovulation induction medication - discussed with partner for another opinion as well. Start PNV. Jagruti Alcantar DO Medical Decision Making: Problems: Low: Stable chronic illness Data: Unique test(s) ordered: 3+ Medical Decision Making Level: 3 - Low documented in this [facility]05[facility] History of Present illness Narrative* Michelle Camarena APRN.[facility] - 11/28/2021 7:50 AM EDT Desire is a 26 year old who presents for an annual gynecologic exam without complaints. Wanting to get but not ovulating-recommended making an appt with one of the doctors. She states that she had to take medication last time to get . Menses: cycles every 25-30 days and 6-7 days of flow. Contraception: none HPV vaccine: No Last Pap: 12/22/2020 normal HPV: N/A History of abnormal pap: No Last mammogram: never Sexually active: Yes Patient concerns for STD exposure: No. 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 No bloating, early satiety, indigestion, or increased flatulence. Bladder: No dysuria, gross hematuria, urinary frequency, urinary urgency, or incontinence. Breast: No breast lumps, nipple d/c, overlying skin changes, redness or skin retraction. Allergies and current medication updated:Yes EXAM: Ht 5' 1 (1.55m) Wt 176 lb 9.6 oz (80.1kg) LMP 11/22/2021 BMI 33.39 kg/(m^2). GENERAL: pleasant, female in no apparent distress HEENT: Normocephalic, atraumatic, mucus membranes moist and no lesions NECK: Supple, full range of motion, no adenopathy and thyroid normal DERMATOLOGY: Normal, without lesions, non-icteric and non-hirsute BREAST: soft, non-tender, symmetric, no dominant mass, normal nipple-areolar complex, no lymphadenopathy and no nipple discharge CHEST: Normal inspiratory effort ABDOMEN: soft, non-tender and no masses PELVIC: external genitalia normal, normal Bartholin's glands, urethra, [place]'s glands, no vulvar lesions, no cervical lesions, good vaginal support, physiologic discharge present, normal appearing perineal body and perianal region BIMANUAL: uterus normal size, shape and consistency, no adnexal masses and non-tender RECTOVAGINAL: deferred. NEURO: alert and oriented x3,exam grossly non-focal EXTREMITIES: normal ASSESSMENT/PLAN: 1) Health maintenance: Pap/HPV up to date. Mammogram starting age 40. Nutrition, exercise and routine health maintenance exams reviewed. Calcium/Vitamin D supplementation information provided. 2) Contraception: none. Contraceptive options reviewed and information provided. 3) STD screening: Declined STD check. 4) Follow up one year or sooner as needed Michelle Camarena APRN.DAIN documented in [facility] encounterF[facility]02-[facility]22 Hospital Discharge instructions Patient Education 08/22/2021 16:05:09 Asthma, Adult, Wpqz-za-Xkhx Asthma, Adult Asthma is a long-term (chronic) condition in which the airways get tight and narrow. The airways are the breathing passages that lead from the nose and mouth down into the lungs. A person with asthmawill have times when symptoms get worse. These are called asthma attacks. They can cause coughing, whistling sounds when you breathe (wheezing), shortness of breath, and chest pain. They can make it hard to breathe. There is no cure for asthma, but medicines and lifestyle changes can help control it. There are many things that can bring on an asthma attack or make asthma symptoms worse (triggers). Common triggers include: Mold. Dust. Cigarette smoke. Cockroaches. Things that can cause allergy symptoms (allergens). These include animal skin flakes (dander) and pollen from trees or grass. Things that pollute the air. These may include household substance abuse rn, wood smoke, smog, or chemical odors. Cold air, weather changes, and wind. Crying or laughing hard. Stress. Certain medicines or drugs. Certain foods such as dried fruit, potato chips, and grape juice. Infections, such as a cold or the flu. Certain medical conditions or diseases. Exercise or tiring activities. Asthma may be treated with medicines and by staying away from the things that cause asthma attacks.Types of medicines may include: Controller medicines. These help prevent asthma symptoms. They are usually taken every day. Fast-acting reliever or rescue medicines. These quickly relieve asthma symptoms. They are used as needed and provide short-term relief. Allergy medicines if your attacks are brought on by allergens. Medicines to help control the body's defense (immune) system. Follow these instructions at home: Avoiding triggers in your home Change your heating and air conditioning filter often. Limit your use of fireplaces and wood stoves. Get rid of pests (such as roaches and mice) and their droppings. Throw away plants if you see mold on them. Clean your floors. Dust regularly. Use cleaning products that do not smell. Have someone vacuum when you are not home. Use a vacuum body cleaner with a HEPA filter if possible. Replace carpet with wood, tile, or vinyl abhishek. Carpet can trap animal skin flakes and dust. Use allergy-proof pillows, mattress covers, and box spring covers. Wash bed sheets and blankets every week in hot water. Dry them in a dryer. Keep your bedroom free of any triggers. Avoid pets and keep windows closed when things that cause allergy symptoms are in the air. Use blankets that are made of polyester or cotton. Clean bathrooms and claudine with bleach. If possible, have someone repaint the bhatia in these rooms with mold-resistant paint. Keep out of the rooms that are being cleaned and painted. Wash your hands often with soap and water. If soap and water are not available, use hand circuit designer. Do not allow anyone to smoke in your home. General instructions Take tjbd-yrb-heiduds and prescription medicines only as told by your doctor. ?Talk with your doctor if you have questions about how or when to take your medicines. ?Make note if you need to use your medicines more often than usual. Do not use any products that contain nicotine or tobacco, such as cigarettes and e-cigarettes. If you need help quitting, ask your doctor. Stay away from secondhand smoke. Avoid doing things outdoors when allergen counts are high and when air quality is low. Wear a ski mask when doing outdoor activities in the winter. The mask should cover your nose and mouth. Exercise indoors on cold days if you can. Warm up before you exercise. Take time to cool down after exercise. Use a peak flow meter as told by your doctor. A peak flow meter is a tool that measures how well the lungs are working. Keep track of the peak flow meter's readings. Write them down. Follow your asthma action plan. This is a written plan for taking care of your asthma and treating your attacks. Make sure you get all the shots (vaccines) that your doctor recommends. Ask your doctor about a flushot and a pneumonia shot. Keep all follow-up visits as told by your doctor. This is important. Contact a doctor if: You have wheezing, shortness of breath, or a cough even while taking medicine to prevent attacks. The mucus you cough up (sputum) is thicker than usual. The mucus you cough up changes from clear or white to yellow, green, parks, or bloody. You have problems from the medicine you are taking, such as: ?A rash. ?Itching. ?Swelling. ?Trouble breathing. You need reliever medicines more than 2 3 times a week. Your peak flow reading is still at 50 79% of your personal best after following the action plan for1 hour. You have a fever. Get help right away if: You seem to be worse and are not responding to medicine during an asthma attack. You are short of breath even at rest. You get short of breath when doing very little activity. You have trouble eating, drinking, or talking. You have chest pain or tightness. You have a fast heartbeat. Your lips or fingernails start to turn blue. You are light-headed or dizzy, or you faint. Your peak flow is less than 50% of your personal best. You feel too tired to breathe normally. Summary Asthma is a long-term (chronic) condition in which the airways get tight and narrow. An asthma attack can make it hard to breathe. Asthma cannot be cured, but medicines and lifestyle changes can help control it. Make sure you understand how to avoid triggers and how and when to use your medicines. This information is not intended to replace advice given to you by your health care provider. Make sure you discuss any questions you have with your health care provider. Document Released: 12/03/2008 Document Revised: 08/20/2019 Document Reviewed: 07/22/2017 [employer] Patient Education 2020 [employer] Follow Up Care 08/21/2021 08:56:39 With:MONTSE CHILD MD Address: [address] [place] [address] [address] [place] [address]- When:08/24/2021 10:30:00 Comments:This is your post-hospital follow-up appointment.This is with Rosa Millard NP. Please arrive 15 minutes early and bring ID and insurance card. [facility] 02-21-2022 Evaluation + Plan noteExtracted from: Title:History and Physical Author:MICHAELA NIELSEN APRN-ACID CONCENTRATOR Date:08/21/21 1. Asthma exacerbation Asthma exacerbation-we will add Solu-Medrol 60 mg IV every 8 hours. DuoNebs every 4 hours and every 4 hours as needed. Patient only uses albuterol inhaler as needed at home. She just started using it last night. She continues to have persistent inspiratory and expiratory wheezing and tachycardia. Plan to add maintenance inhaler upon discharge. Patient has not had PFTs done since the age of 13. Will need further evaluation by PCP. Concern for possible developing pneumonia due to low-grade fever and leukocytosis. Will check mycoplasma antibody. Add Rocephin and azithromycin. Encourage incentive spirometer. Labs, diagnostics, and progress notes reviewed as noted in HPI Code Status: Full code Plan of care discussed with patient. All questions answered. Patient verbalizes understanding is agreeable to plan of care. Discussed with collaborating physician, Dr. Iqbal This dictation was performed using voice recognition software and may include grammatical and/or spelling errors. [facility] 02-18-2021 History of Past illness Narrative* Problem Noted Date Resolved Date Abnormal glucose in , antepartum 202012/16/2020 Overview: 09/01/20- 3 hr GTT with 1 elevated level Viktoriya Montero APRN.CNM 08/18/20-abnormal 1hr GCT, will need 3hr gTT. Anat Laughlin APRN.CNM Encounter for supervision of normal first in third trimester 08/17/2020 12/16/2020 Rh negative state in antepartum period 0 12/16/2020 documented as of this encounter (statuses as of 11/28/2021) [facility] History of Past illness Narrative* Problem Noted Date Resolved Date Abnormal glucose in , antepartum 202012/16/2020 Overview: 09/01/20- 3 hr GTT with 1 elevated level Viktoriya Montero APRN.CNM 08/18/20-abnormal 1hr GCT, will need 3hr gTT. Anat Laughlin APRN.CNM Encounter for supervision of normal first in third trimester 08/17/2020 12/16/2020 Rh negative state in antepartum period 0 12/16/2020 documented as of this encounter (statuses as of 12/01/2021) [facility] History of Past illness Narrative* Problem Noted Date Resolved Date Abnormal glucose in , antepartum 202012/16/2020 Overview: 09/01/20- 3 hr GTT with 1 elevated level Viktoriya Montero APRN.CNM 08/18/20-abnormal 1hr GCT, will need 3hr gTT. Anat Laughlin APRN.CNM Encounter for supervision of normal first in third trimester 08/17/2020 12/16/2020 Rh negative state in antepartum period 0 12/16/2020 documented as of this encounter (statuses as of 12/04/2021) [facility] History of Past illness Narrative* Problem Noted Date Resolved Date Abnormal glucose in , antepartum 202012/16/2020 Overview: 09/01/20- 3 hr GTT with 1 elevated level Viktoriya Montero APRN.CNM 08/18/20-abnormal 1hr GCT, will need 3hr gTT. Anat Laughlin APRN.CNM Encounter for supervision of normal first in third trimester 08/17/2020 12/16/2020 Rh negative state in antepartum period 0 12/16/2020 documented as of this encounter (statuses as of 07/24/2022) [facility]02-18-2021 History of Past illness Narrative* Problem Noted Date Resolved Date Abnormal glucose in , antepartum 202012/16/2020 Overview: 09/01/20- 3 hr GTT with 1 elevated level Viktoriya Montero APRN.CNM 08/18/20-abnormal 1hr GCT, will need 3hr gTT. Anat Laughlin APRN.CNM Encounter for supervision of normal first in third trimester 08/17/2020 12/16/2020 Rh negative state in antepartum period 0 12/16/2020 documented as of this encounter (statuses as of 09/11/2022) [facility]-18-[facility]21 History of Past illness Narrative* Problem Noted Date Resolved Date Abnormal glucose in , antepartum 202012/16/2020 Overview: 09/01/20- 3 hr GTT with 1 elevated level Viktoriya Montero APRN.CNM 08/18/20-abnormal 1hr GCT, will need 3hr gTT. Anat Laughlin APRN.CNM Encounter for supervision of normal first in third trimester 08/17/2020 12/16/2020 Rh negative state in antepartum period 0 12/16/2020 documented as of this encounter (statuses as of 09/19/2022) [facility] History of Past illness Narrative* Problem Noted Date Resolved Date Abnormal glucose in , antepartum 202012/16/2020 Overview: 09/01/20- 3 hr GTT with 1 elevated level Viktoriya Montero APRN.CNM 08/18/20-abnormal 1hr GCT, will need 3hr gTT. Anat Laughlin APRN.CNM Encounter for supervision of normal first in third trimester 08/17/2020 12/16/2020 Rh negative state in antepartum period 0 12/16/2020 documented as of this encounter (statuses as of 09/21/2022) [facility] History of Past illness Narrative* Problem Noted Date Resolved Date Abnormal glucose in , antepartum 202012/16/2020 Overview: 09/01/20- 3 hr GTT with 1 elevated level Viktoriya Montero APRN.CNM 08/18/20-abnormal 1hr GCT, will need 3hr gTT. Anat Laughlin APRN.CNM Encounter for supervision of normal first in third trimester 08/17/2020 12/16/2020 Rh negative state in antepartum period 12/16/2020 documented as of this encounter (statuses as of 10/31/2022) [facility] History of Past illness Narrative* Problem Noted Date Diagnosed Date Resolved Date Abnormal glucose in , antepartum 08/18/2020 12/16/2020 Overview: 09/01/20- 3 hr GTT with 1 elevated level Viktoriya Montero APRN.CNM 08/18/20-abnormal 1hr GCT, will need 3hr gTT. Anat Laughlin APRN.CNM Encounter for supervision of normal first in third trimester 08/17/2020 12/16/2020 Rh negative state in antepartum period 05/09/2020 12/16/2020 documented as of this encounter (statuses as of 02/23/2023) [facility] History of Past illness Narrative* Problem Noted Date Diagnosed Date Resolved Date Abnormal glucose in , antepartum 08/18/2020 12/16/2020 Overview: 09/01/20- 3 hr GTT with 1 elevated level Viktoriya Montero APRN.CNM 08/18/20-abnormal 1hr GCT, will need 3hr gTT. Anat Laughlin APRN.CNM Encounter for supervision of normal first in third trimester 08/17/2020 12/16/2020 Rh negative state in antepartum period 05/09/2020 12/16/2020 documented as of this encounter (statuses as of 03/26/2023) [facility] History of Past illness Narrative* Problem Noted Date Diagnosed Date Resolved Date Abnormal glucose in , antepartum 08/18/2020 12/16/2020 Overview: 09/01/20- 3 hr GTT with 1 elevated level Viktoriya Montero APRN.CNM 08/18/20-abnormal 1hr GCT, will need 3hr gTT. Anat Laughlin APRN.CNM Encounter for supervision of normal first in third trimester 08/17/2020 12/16/2020 Rh negative state in antepartum period 05/09/2020 12/16/2020 documented as of this encounter (statuses as of 04/16/2023) [facility] History of Past illness Narrative* Problem Noted Date Diagnosed Date Resolved Date Abnormal glucose in , antepartum 08/18/2020 12/16/2020 Overview: 09/01/20- 3 hr GTT with 1 elevated level Viktoriya Montero APRN.CNM 08/18/20-abnormal 1hr GCT, will need 3hr gTT. Anat Laughlin APRN.CNM Encounter for supervision of normal first in third trimester 08/17/2020 12/16/2020 Rh negative state in antepartum period 05/09/2020 12/16/2020 documented as of this encounter (statuses as of 04/29/2023) [facility] Diagnosis Encounter for gynecological examination (general) (routine) without abnormal findings- Primary documented in this encounter [facility] note* Diagnosis Irregular menstrual cycle- Primary PCOS (polycystic ovarian syndrome) Polycystic ovaries documented [facility] noteNo assessment information availableWKettering [facility] Work Phone: Evaluation note* Diagnosis Onset Date Resolution Status Strain of lumbar region [facility] Work Phone: Evaluation note* Diagnosis PCOS (polycystic ovarian syndrome)- Primary Polycystic ovaries Anovulation Female infertility associated with anovulation documented in this encounter [facility] note* Diagnosis Anovulation- Primary Female infertility associated with anovulation PCOS (polycystic ovarian syndrome) Polycystic ovaries [facility] COVID- Primary Nasal congestion Other diseases of nasal cavity and sinuses documented in this encounter [facility] note* Diagnosis Anovulation Female infertility associated with anovulation PCOS (polycystic ovarian syndrome) Polycystic ovaries documented in this encounter [facility] note* Diagnosis Acute pain of right lower extremity- Primary Acute right ankle pain documented in this encounter [facility] note* Diagnosis Anovulation Female infertility associated with anovulation PCOS (polycystic ovarian syndrome) Polycystic ovaries documented in this encounter [facility] note* Diagnosis Anovulation Female infertility associated with anovulation PCOS (polycystic ovarian syndrome) Polycystic ovaries documented in this encounter [facility] note* Diagnosis Encounter for gynecological examination (general) (routine) without abnormal findings- Primary Screening for cervical cancer Screening for malignant neoplasm of the cervix Special screening examination for human papillomavirus (HPV) documented in this encounter [facility] note* Diagnosis Plantar fasciitis- Primary Plantar fascial fibromatosis documented in this encounter [facility] course Narrative No data available for this section [facility] Discharge instructions Additional Instructions Use Tylenol or Motrin every 6 hours as needed. Monitor symptoms. [facility]-up with [facility] Work Phone: [facility] Dis[facility] Work Phone: Hospital Discharge instructions* Attachments The following attachments cannot be sent through Care Everywhere. * Ankle Sprain Discharge Instructions ([place] Citizen) documented in this [facility] Discharge instructions Additional Instructions 1. Call your doctor for outpatient follow-up of the breast nodule/mass. In light of your age you will probably need an ultrasound. 2. MiraLAX 1 cap in full glass of fluids 3 times a day for the next weekWKettering [facility] Work Phone: Instructions* Attachments The following attachments cannot be sent through Care Everywhere. * Plantar Fasciitis Exercises ([place] Citizen) documented in this [facility] for referral (narrative)* Consultation (Urgent) - Pending Review Specialty Diagnoses / Procedures Referred By Amilcar ledezma Referred To Contact Orthopedic Surgery Diagnoses Acute right ankle pain Max Merlos MD [address] [place] [address] [facility] [address] [place] [address] Referral ID Status Reason Start Date Expiration Date Visits Requested Visits Authorized [id number] Pending Review Specialty Services Required 12/20/2022 12/20/2023 1 1 [facility] (narrative)No reason for referral information availableWKettering Health [facility] Work Phone: Summary note* KAILA Bae: PERFORM Event Display: Patient Summary Documents Authored Date: [facility] Assessments Diagnosis Acute foot pain, right Advance Directives No Advanced Directives Records FoundDocuments on File Type Date Recorded 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 No November 25, 2024 9:41pm Advance Directives No July 16, 2019 4:23pm Chief Complaint and Reason for Visit Chief Complaint BACK PAIN Chief Complaint BACK PAIN ED follow/[facility] Low back pain/ EORDER SPINE Reason for Visit Strain of lumbar reg ion Chief Complaint Admit Date ABD PAIN November 25, 2024 7:48p m Family History No Family History Records Found Relationship Condition Age at Onset Recorded Date/T deo grandmother Asthma Unknown aunt Diabetes mellitus Unknown uncle Diabetes mellitus Unknown grandfather Diabetes mellitus Unknown mother Hypertension Unknown Summary Purpose Additional Source Comments Source Comments (unrecognize d section and content) In the event this informatio n is protected by the Federal Confidentiality of Alcohol and Drug Abuse Patient Records regulations: The Federal rules restrict any use of the information to criminally investigate or prosecute any alcohol or drug abuse patient.[facility] the event this information is protected by the Federal Confidentiality of Alcohol and Drug Abuse Patient Records regulations: The Federal rules restrict any use of the information to criminally investigate or prosecute any alcohol or drug abuse patient.[facility] the event this information is protected by the Federal Confidentiality of Alcohol and Drug Abuse Patient Records regulations: The Federal rules restrict any use of the information to criminally investigate or prosecute any alcohol or drug abuse patient.[facility] the event this information is protected by the Federal Confidentiality of Alcohol and Drug Abuse Patient Records regulations: The Federal rules restrict any use of the information to criminally investigate or prosecute any alcohol or drug abuse patient.[facility] the event this information is protected by the Federal Confidentiality of Alcohol and Drug Abuse Patient Records regulations: The Federal rules restrict any use of the information to criminally investigate or prosecute any alcohol or drug abuse patient.[facility] the event this information is protected by the Federal Confidentiality of Alcohol and Drug Abuse Patient Records regulations: The Federal rules restrict any use of the information to criminally investigate or prosecute any alcohol or drug abuse patient.[facility] the event this information is protected by the Federal Confidentiality of Alcohol and Drug Abuse Patient Records regulations: The Federal rules restrict any use of the information to criminally investigate or prosecute any alcohol or drug abuse patient.[facility] the event this information is protected by the Federal Confidentiality of Alcohol and Drug Abuse Patient Records regulations: The Federal rules restrict any use of the information to criminally investigate or prosecute any alcohol or drug abuse patient.[facility] the event this information is protected by the Federal Confidentiality of Alcohol and Drug Abuse Patient Records regulations: The Federal rules restrict any use of the information to criminally investigate or prosecute any alcohol or drug abuse patient.[facility] the event this information is protected by the Federal Confidentiality of Alcohol and Drug Abuse Patient Records regulations: The Federal rules restrict any use of the information to criminally investigate or prosecute any alcohol or drug abuse patient.[facility] the event this information is protected by the Federal Confidentiality of Alcohol and Drug Abuse Patient Records regulations: The Federal rules restrict any use of the information to criminally investigate or prosecute any alcohol or drug abuse patient.[facility] the event this information is protected by the Federal Confidentiality of Alcohol and Drug Abuse Patient Records regulations: The Federal rules restrict any use of the information to criminally investigate or prosecute any alcohol or drug abuse patient.[facility] Reason for Visit (unrecogniz ed section and content) Reason Comments Yearly Exam Reason Comments Follow Up discuss fertility Reason Comments Patient Question Reason Comments Other Preconception Reason Comments Results Reason Comments Nasal Congestion Congestion x 3 days Reason Comments Ankle Pain Right Reason Onset Date Comments Refill Request 02/21/2023 Reason Comments Refill Request Reason Comments Well Woman Reason Comments heal pain right Goals (unrecognized section and content) Goals may be documented in a n alternate section Care Team (unrecognized sect ion and content) Care Team Personnel Name: MONTSE CHILD MD Member Role: Primary Care Physician Address: Address: [address] [place] [address] [address] [place] [address]- [place] Name: ELIE RODARTE MD Position: ED Physician Member Role: ED Physician Address: Address: [address] [place] [address] Name: Rosaura Gonzalez RN Position: AO RN Member Role: ED RN Care Team Related Persons Name: AMAN MAY Address: Home [address] [place], [place] [address] [place] Name: KHLOE MAY Address: Home [address] [place] [id number] [place] Name: KHLOE MAY Name: KHLOE MAY Address: [place] [address] Name: KHLOE MAY Address: [address] Name: KHLOE MAY Address: [address] Name: KHLOE MAY Address: [address] Name: KHLOE MAY Address: [address] Name: KHLOE MAY Address: [address] Care Teams (unrecognized sec tion and content) Instrument Repair Supervisor Relationship Specialty Start Date End Date Montse Child MD PCP - General 12/14/14 Instrument Repair Supervisor Relationship Specialty Start Date End Date Montse Child MD [address] [place] [address] [id number] PCP - General 12/14/14 Instrument Repair Supervisor Relationship Specialty Start Date End Date Montse Child MD [address] [place] [address] [phone] PCP - General 12/14/14 Instrument Repair Supervisor Relationship Specialty Start Date End Date Montse Child MD [address] [place] [address] [phone] PCP - General 12/14/14 Instrument Repair Supervisor Relationship Specialty Start Date End Date Montse Child MD [address] [place] [address] [phone] PCP - General 12/14/14 Team Status: Active Member Role Status Dates Dr. Renata Child MD Primary Care Provider Activ e Team Status: Inactive Member Role Status Dates Dr. Renata Child MD Primary Care Provider Activ e Start: November 25, 2024 End: November 25, 2024 Dr. Martin Hare MD Emergency Provider Active Sta rt: November 25, 2024 End: November 25, 2024 INFORMATION SOURCE (unrecogn ized section and content) DATE CREATED AUTHOR 03/12/2022 [facility] DATE CREATED AUTHOR AUTHOR'S ORGANIZ ATION 12/28/2022 [facility] DATE CREATED AUTHOR AUTHOR'S ORGANIZ ATION 04/28/[address] [facility] DATE CREATED AUTHOR AUTHOR'S ORGANIZ ATION 03/01/2024 [facility] ([place]) DATE CREATED AUTHOR AUTHOR'S ORGANIZ ATION 12/03/2024 [facility] Scheduled Active and Recently Administ ered Medications (unrecognized section and content) Medication Order 12/18/2022 12/19/2022 12/20/2022 aspirin chewable tablet 324 mg (COMPLETED) 324 mg, Oral, Once, On Anaid 12/20/22 at 1420, For 1 dose 1422 (Given - Provid er: Shira Goode RN) FOR RECORDS PERTAINING TO PATIENTS WHO ARE OR HAVE BEEN ENROLLED IN A CHEMICAL DEPENDENCY/SUBSTANCEABUSE PROGRAM, SOME INFORMATION MAY BE OMITTED. This clinical summary was aggregated from multiple sources. Caution should be exercised in using it in the provision of clinical care. This summary normalizes information from multiple sources, and as a consequence, information in this document may materially change the coding, format and clinical context of patient data. In addition, data may be omitted in some cases. CLINICAL DECISIONS SHOULD BE BASED ON THE PRIMARY CLINICAL RECORDS. [facility] provides no warranty or guarantee of the accuracy or completeness of information in this document.
--- NOTE | 2025-03-26 01:11 | EX.ED.DYSGE1 ---
HPI History of Present Illness Chief Complaint: Allergic Reaction Narrative Narrative: Patient is a 29-year-old female presenting to the emergency department for a rash that she noticed that started yesterday. She has a past medical history as below. States she is a 3-year-old daughter. She reports that she initially saw some small blisters on her hands and now she is noting them on her feet as well. She states she has 2 in her mouth as well. She denies any fever, chills, nausea, vomiting. She feels well otherwise. She states she went tanning today in a tanning bed and she noticed some worsening spots afterwards. [facility] Medical History Bipolar disorder Anxiety Depression Smoker Migraines URI (upper respiratory infection) Polycystic ovarian syndrome Acute cholecystitis Asthma Nausea & vomiting Diarrhea Abdominal pain Acute cholecystitis Home Medications ?Medication ?Instructions ?Recorded ?Last Taken ?Type albuterol sulfate 90 mcg/actuation 1 - 2 puff inhalation Q6H PRN PRN 09/09/19 1 Month Ago History aerosol inhaler Asthma ~10/12/20 metoclopramide HCl 5 mg tablet 5 mg PO Q8 #10 tabs 02/22/24 Unknown Rx (Reglan) Allergy/AdvReac Type Severity Reaction Status Date / Time guaifenesin (From Robitussin) Allergy Intermediate elevated Verified 03/25/25 18:29 heart rate Family History Grandmother Asthma Aunt Diabetes Uncle Diabetes Grandfather Diabetes Mother Hypertension Surgical History History of cholecystectomy History of surgery S/P laparoscopic cholecystectomy Social History Smoking Status: Former smoker alcohol intake: current alcohol intake frequency: a few times a month substance use type: does not use ROS ROS ED ROS Narrative See HPI EXAM Physical Exam Narrative Exam Narrative: Vital signs: Reviewed General: Alert and oriented. No acute distress HEENT: Head is normocephalic and atraumatic, sinuses nontender, pupils equal round and reactive. Nares are patent. There are 2 yellowish-parks ulcers with erythematous edges noted on the tongue. Neck: Supple without lymphadenopathy nontender Cardiovascular: Regular rate and rhythm, no murmurs. No rubs or gallops. Normal S1 and S2 Respiratory: Clear to auscultation bilaterally. No wheezes, rales, rhonchi Abdominal: Soft and nontender. Normal bowel sounds. No guarding or rebound. Nonsurgical abdomen Extremities: No tenderness. No bruising. Normal range of motion. Normal sensation. Skin: Small erythematous base blisters noted on palms and a few on the soles of the feet. Negative Nikolsky sign. No petechiae. No bullae. Neurological: Cranial nerves II through XII are grossly intact. Normal strength and sensation. Normal cerebellar function The rest of the physical exam is unremarkable Const Vital Signs: 03/25/25 18:29 Temperature 97.4 F L Temperature Source Temporal Pulse Rate 81 Respiratory Rate 18 Blood Pressure 125/86 H Blood Pressure Mean 99 Pulse Ox 100 Oxygen Delivery Method Room Air MDM MDM MDM Narrative Medical decision making narrative: Patient is a 29-year-old female presenting to the emergency department for a rash. Patient was seen and examined. Vitals are stable. Patient resting bed comfortably no acute distress. Patient's exam is consistent with fujs-mxvx-lhy-mouth disease. She is overall well-appearing. She does have a daughter but states that daughter does not have similar symptoms. She has no systemic symptoms. She was given supportive care recommendations for home. Instructed that this is contagious. I recommended Tylenol and Motrin as needed for at home for pain control and Benadryl or Zyrtec for itching. Patient discharged from the Emergency Department. I do not feel that the patient's evaluation reveals any acute reason for admission at this time. I instructed them to either follow-up with their primary care physician or promptly return to the Emergency Department for reevaluation should symptoms worsen or new symptoms develop. I explained what symptoms would indicate the need to return to the emergency department. Shared decision making was used. The patient voiced understanding of the treatment plan and is agreeable with it. Clinical impression Hand-foot mouth disease History & Record Review Discussion w/independent historian: Patient Discharge Plan Triage Chief Complaint: Allergic Reaction ED Provider: Lou Estrada Dx/Rx/DC Orders Clinical Impression: Hand, foot and mouth disease (HFMD) Instructions: Hand Foot Mouth Disease Prescriptions: No Action albuterol sulfate 1 INHALER inhaler 1 - 2 puff inhalation Q6H PRN PRN (Reason: Asthma) metoclopramide HCl [Reglan] 5 mg tablet 5 mg PO Q8 Qty: 10 0RF Primary Care Provider: Renata Camejo Referrals: Renata Camejo MD [Primary Care Provider, Medical] - 2 Days Activity Restrictions/Additional Instructions: You can take Benadryl for any itching related to the rash. Take Tylenol and Motrin as needed for any pain. Follow-up with your primary care doctor soon as possible and return to the ED with any new or worsening symptoms. Your evaluation in the Emergency Department did not reveal any acute reason for admission. However, I want to emphasize that you may be early in the course of a disease process or illness even if it is not present. For this reason you should follow-up within 24 hours for reevaluation with either your primary care physician or if necessary back here in the Emergency Department. You should return to the Emergency Department immediately if your symptoms worsen or new symptoms develop. Print Language: Mohawk Disposition Disposition: Home, Self Care Discharge Date/Time: 03/25/25 21:28
== END 2025-03-25 21:28 | disposition home or self-care (01) ==
PROVIDERS: Emergency Provider Student in an Organized Health Care Education/Training Program; PCP Family Medicine; Visit Provider Student in an Organized Health Care Education/Training Program
DX: B08.4 Enteroviral vesicular stomatitis with exanthem (principal); Z87.891 Personal history of nicotine dependence; Z90.49 Acquired absence of other specified parts of digestive tract
CPT/HCPCS: 99282